=== PATIENT | female | born 1995 | race Caucasian/White ===

== ENCOUNTER 2023-09-14 12:14 | Emergency (ER) | payer SELFPAY ==
[2023-09-14 12:27] VITALS: BP 127/85; PULSE 77; TEMP 36.7; O2SAT 99; BMI 27.2
--- NOTE | 2023-09-14 14:07 | ED.GENADUL1 ---
HPI HPI - General Adult General Chief complaint: Nausea/Vomiting/Diarrhea Stated complaint: dizziness/nausea Time Seen by Provider: 09/14/23 13:50 Source: patient Mode of arrival: walk-in History of Present Illness HPI narrative: Patient is a 28-year-old female with a history of depression who presents to the ER with concerns of full body paresthesias. Patient states she woke up with decreased sensation and numbness to all of her skin. She denies any tick bites. She has had no recent medication changes. She denies any visual changes or headache. She denies any head injury. People that live with her in the home have been without illness or similar symptoms. Patient appears mildly anxious and states she does not have a family doctor to follow-up on this with prompting ER visit. She notes feeling slightly dizzy and admits to working outside yesterday for 4 hours and feels she may be just dehydrated. Patient denies chance of reporting control. Related Data Home Medications ?Medication ?Instructions ?Recorded ?Confirmed escitalopram oxalate 20 mg tablet 20 mg PO DAILY depression 09/14/23 09/14/23 Previous Rx's ?Medication ?Instructions ?Recorded ondansetron HCl 4 mg tablet 4 mg PO Q6H PRN nausea and 09/14/23 vomiting #12 tabs Allergies Allergy/AdvReac Type Severity Reaction Status Date / Time amoxicillin Allergy Severe Verified 09/14/23 12:31 aspirin Allergy Severe Verified 09/14/23 12:31 Opioid HPI Opioid Management Most Recent Opioid Data: No Data to Display Review of Systems ROS Constitutional Denies: fever or chills Eyes Denies: change in vision Ears, nose, mouth, and throat Denies: throat pain, neck pain or throat swelling Cardiovascular Denies: chest pain or palpitations Respiratory Denies: shortness of breath or cough Gastrointestinal Denies: abdominal pain, nausea or vomiting Musculoskeletal Denies: back pain, neck pain or extremity pain Integumentary/Breast Denies: rash, itching or redness Neurological Denies: headache Psychiatric Denies: anxiety or mood swings Exam Narrative Exam Narrative: Vital signs and nurses notes reviewed. The patient is not hypoxic. General: The patient appears well and in no apparent distress. Patient is resting comfortably on cart. Skin: Warm, dry, no pallor noted. The patient has no evidence of rash, petechiae, or purpura noted. Decreased sensation to pain diffuse across her body, patient notes she is pinching herself and can feel a pinch but states it is not as sharp as she would expected to be. Head: Normocephalic, atraumatic, no temporal arterial tenderness Neck: Supple, trachea mid-line, no tenderness, no lymphadenopathy. No meningeal signs. No nuchal rigidity. Eye: Pupils are equal, round and reactive to light, EOMI Ears, Nose, Mouth, and Throat: Oral mucosa is moist, TMs are clear bilaterally, no hemotympanum noted. Cardiovascular: Regular Rate and Rhythm Respiratory: Patient is in no distress, no accessory muscle use, lungs are clear to auscultation, no wheezing, rales or rhonchi Back: non-tender, no CVA tenderness Musculoskeletal: normal ROM, no tenderness, no swelling, normal strength 5/5. Normal pulses to radial 2+ bilaterally and 2+ at DP and PT bilaterally and symmetrically. GI: Normal bowel sounds, no tenderness to palpation, no masses appreciated. No rebound, guarding, or rigidity noted. 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 The patient has normal speech. The patient has normal coordination. . Normal motor and sensory observed. Psychiatric: Cooperative Constitutional Vital Signs, click to edit/add: Last Vital Signs Temp 98.0 F 09/14/23 12:27 Pulse 63 09/14/23 14:31 Resp 16 09/14/23 14:31 BP 109/74 09/14/23 14:31 Pulse Ox 99 09/14/23 14:31 O2 Del Method Room Air 09/14/23 12:27 Course Vital Signs Vital signs: Vital Signs Temperature 98.0 F 09/14/23 12:27 Pulse Rate 77 09/14/23 12:27 Respiratory Rate 14 09/14/23 12:27 Blood Pressure 127/85 09/14/23 12:27 Pulse Oximetry 99 09/14/23 12:27 Oxygen Delivery Method Room Air 09/14/23 12:27 Temperature 98.0 F 09/14/23 12:27 Pulse Rate 63 09/14/23 14:31 Respiratory Rate 16 09/14/23 14:31 Blood Pressure 109/74 09/14/23 14:31 Pulse Oximetry 99 09/14/23 14:31 Oxygen Delivery Method Room Air 09/14/23 12:27 Medical Decision Making MDM Narrative Medical decision making narrative: Patient presents with vague complaints, paresthesias. She admits to overall poor diet but was also exposed to heat yesterday without much fluids. Labs are pending, IV fluid bolus ordered with Zofran for nausea. She denies any pain or discomfort.Denies head injury. Patient has steady brisk gait and drove herself to the emergency room. Patient notes feeling improved after nausea medication IV fluid bolus, still reports feeling of paresthesias. She may require further evaluation with PCP regarding vitamin supplementations or further workup outpatient of Symptoms given global paresthesias symptoms. The patient is to followup with primary care physician in next 2-3 days or to return to the emergency department should any of the signs or symptoms worsen or new symptoms develop. Patient had questions answered. The patient agrees with the following Diagnosis and Treatment plan and the patient will be discharged home. SHARED APC VISIT, PHYSICIAN ATTESTATION: [id number] I performed a substantive part of the MDM during the patient?s E/M visit. I personally evaluated and examined the patient. I personally made or approved the documented management plan and acknowledge its risk of complications. My (EKG/X-Ray/US/CT) interpretation . Management/test interpretation discussed with . Lab Data Lab results narrative: Urinalysis likely contaminated culture pending Labs: Lab Results 09/14/23 09/14/23 Range/Units 12:32 14:15 WBC 6.4 (4.0-11.0) 10^3/uL RBC 4.66 (4.20-5.40) 10^6/uL Hgb 13.7 (12.0-16.0) g/dL Hct 40.6 (36.0-48.0) % MCV 87.1 (81.0-99.0) fL MCH 29.4 (26.7-34.0) pg MCHC 33.7 (29.9-35.2) g/dL RDW 13.2 (11.0-15.0) % Plt Count 208 (150-450) 10^3/uL MPV 11.3 (9.5-13.5) fL Neut % (Auto) 39.6 L (43.0-75.0) % Lymph % (Auto) 48.6 (20.5-60.0) % [place] % (Auto) 7.9 (1.7-12.0) % Eos % (Auto) 3.3 (0.9-7.0) % Baso % (Auto) 0.6 (0.2-2.0) % Neut # (Auto) 2.6 (1.4-6.5) 10^3/uL Lymph # (Auto) 3.1 (1.2-3.8) 10^3/uL [place] # (Auto) 0.5 (0.3-0.8) 10^3/uL Eos # (Auto) 0.2 (0.0-0.7) 10^3/uL Baso # (Auto) 0.0 (0.0-0.1) 10^3/uL Abs Immat Gran (auto) 0.00 (0.00-0.03) 10^3/uL Imm/Tot Granulo (auto) 0.0 (0.0-0.5) % Sodium 140 (136-145) mmol/L Potassium 3.8 (3.5-5.1) mmol/L Chloride 106 (98-107) mmol/L Carbon Dioxide 22.8 (21.0-32.0) mmol/L Anion Gap 15.0 BUN 5.0 L (7.0-18.0) mg/dL Creatinine 0.59 (0.55-1.02) mg/dL Est GFR ( Amer) >60 (>=60) Est GFR (Non-Af Amer) >60 (>=60) BUN/Creatinine Ratio 8.5 Glucose 87 (74-106) mg/dL Calcium 8.7 (8.5-10.1) mg/dL Magnesium 2.1 (1.8-2.4) mg/dL Total Bilirubin 0.6 (0.2-1.0) mg/dL AST 26 (15-37) U/L ALT 23 (14-59) U/L Alkaline Phosphatase 69 (46-116) U/L Total Protein 6.4 (6.4-8.2) g/dL Albumin 3.6 (3.4-5.0) g/dL Globulin 2.8 g/dL Albumin/Globulin Ratio 1.3 TSH & Free T4 Interp 0.773 (0.358-3.740) uIU/mL Urine Color Yellow (YELLOW) Urine Clarity Clear (CLEAR) Urine pH 8.5 (5.0-9.0) Ur Specific [place] 1.020 (1.005-1.025) Urine Protein Trace (NEG/TRACE) mg/dL Urine Glucose (UA) Negative (NEGATIVE) mg/dL Urine Ketones Negative (NEGATIVE) mg/dL Urine Occult Blood Negative (NEGATIVE) Urine Nitrite Negative (NEGATIVE) Urine Bilirubin Negative (NEGATIVE) Urine Urobilinogen 1.0 (0.2-1.0) EU/dL Ur Leukocyte Esterase Trace A (NEGATIVE) Urine RBC None seen (0-2) #/HPF Urine WBC 5-10 A (NONE SEEN) #/HPF Ur Squamous Epith Cells Many A (NONE/RARE) #/LPF Urine Crystals Seen A (None Seen) #/HPF Calcium Oxalate Crystal Rare Amorphous Sediment Few Urine Bacteria Moderate A (NONE SEEN) #/HPF Urine Mucus Moderate A (NONE SEEN) Ur Culture Indicated? Yes Discharge Plan Discharge Stand Alone Forms: Portal Instructions Chief Complaint: Nausea/Vomiting/Diarrhea Clinical Impression: Nausea, Paresthesias Patient Disposition: Home, Self-Care Time of Disposition Decision: 15:30 Condition: Good Prescriptions / Home Meds: New ondansetron HCl 4 mg tablet 4 mg PO Q6H PRN (Reason: nausea and vomiting) Qty: 12 0RF No Action escitalopram oxalate 20 mg tablet 20 mg PO DAILY Print Language: Sammarinese Instructions: Paresthesia (ED) Referrals: YURY LYN [Primary Care Provider] - As soon as possible
[2023-09-14 14:11] LABS: Bilirubin Urine NEGATIVE (NEGATIVE); Blood Urine NEGATIVE (NEGATIVE); Clarity Urine CLEAR (CLEAR); Color Urine YELLOW (YELLOW); Glucose Urine UA NEGATIVE (NEGATIVE); Ketones Urine NEGATIVE (NEGATIVE); Leukocyte Esterase Urine TRACE (NEGATIVE); Nitrite Urine NEGATIVE (NEGATIVE); Protein Urine TRACE mg/dL (NEG/TRACE); pH Urine 8.5 (5.0-9.0)
[2023-09-14 14:12] LABS: Urine Microscopic Indicated YES
[2023-09-14] MEDS: 0.9 % SODIUM CHLORIDE 1,000 ML 999 ML IV (14:14)
[2023-09-14] MEDS: ONDANSETRON 4 MG RAPDIS TABLET SL (14:29)
[2023-09-14 14:30] LABS: Basophils Percent Auto 0.6 % (0.2-2.0); Eosinophils Absolute Auto 0.2 10^3/uL (0.0-0.7); Eosinophils Percent Auto 3.3 % (0.9-7.0); Hematocrit 40.6 % (36.0-48.0); Hemoglobin 13.7 g/dL (12.0-16.0); Lymphocytes Absolute Auto 3.1 10^3/uL (1.2-3.8); Lymphocytes Percent Auto 48.6 % (20.5-60.0); Mean Corpuscular HGB Conc 33.7 g/dL (29.9-35.2); Mean Corpuscular Hemoglobin 29.4 pg (26.7-34.0); Mean Corpuscular Volume 87.1 fL (81.0-99.0); Mean Platelet Volume 11.3 fL (9.5-13.5); Monocytes Absolute Auto 0.5 10^3/uL (0.3-0.8); Monocytes Percent Auto 7.9 % (1.7-12.0); Neutrophils Absolute Auto 2.6 10^3/uL (1.4-6.5); Neutrophils Percent Auto 39.6 % (43.0-75.0); Platelet Count 208 10^3/uL (150-450); Red Blood Count 4.66 10^6/uL (4.20-5.40); Red Cell Distribution Width 13.2 % (11.0-15.0); White Blood Count 6.4 10^3/uL (4.0-11.0)
[2023-09-14 14:31] VITALS: BP 109/74; PULSE 63; O2SAT 99
[2023-09-14 14:45] LABS: Bacteria Urine MODERATE #/HPF (NONE SEEN); RBC Urine NONE SEEN #/HPF (0-2)
[2023-09-14 14:46] LABS: Amorphous Sediment Urine FEW; Calcium Oxalate Crystals Urine RARE; Crystals Seen? Seen #/HPF (None Seen); Mucus Urine MODERATE (NONE SEEN); Squamous Epithelial Cell Urine MANY #/LPF (NONE/RARE)
[2023-09-14 14:47] LABS: Urine Culture Indicated YES
[2023-09-14 15:14] LABS: Alanine Aminotransferase 23 U/L (14-59); Albumin Globulin Ratio 1.3; Albumin Level 3.6 g/dL (3.4-5.0); Alkaline Phosphatase 69 U/L (46-116); Aspartate Amino Transferase 26 U/L (15-37); BUN Creatinine Ratio 8.5; Bilirubin Total 0.6 mg/dL (0.2-1.0); Calcium 8.7 mg/dL (8.5-10.1); Carbon Dioxide 22.8 mmol/L (21.0-32.0); Chloride 106 mmol/L (98-107); Estimated GFR (African America >60 (>=60); Estimated GFR (Non-African Ame >60 (>=60); Globulin 2.8 g/dL; Glucose 87 mg/dL (74-106); Magnesium 2.1 mg/dL (1.8-2.4); Potassium 3.8 mmol/L (3.5-5.1); Sodium 140 mmol/L (136-145); TSH W/ REFLEX FT4 0.773 uIU/mL (0.358-3.740); Total Protein 6.4 g/dL (6.4-8.2)
[2023-09-14 15:37] VITALS: PULSE 52; O2SAT 100
== END 2023-09-14 15:38 | disposition home or self-care (01) ==
PROVIDERS: Personal Emergency Response Attendant; Emergency Provider Emergency Medicine; PCP Nurse Practitioner Family
DX: R20.2 Paresthesia of skin (principal); R11.0 Nausea; F32.A Depression, unspecified
CPT/HCPCS: 36415; 80053; 81001; 83735; 84443; 85025; 87086; 99283; Q0162

== ENCOUNTER 2024-04-18 15:56 | Observation (INO) | payer OTHER, SELFPAY ==
[2024-04-18 16:18] VITALS: BP 139/80; PULSE 111
[2024-04-18 16:35] LABS: Bilirubin Urine NEGATIVE (NEGATIVE); Blood Urine NEGATIVE (NEGATIVE); Clarity Urine CLEAR (CLEAR); Color Urine LT. YELLOW (YELLOW); Glucose Urine UA NEGATIVE (NEGATIVE); Ketones Urine NEGATIVE (NEGATIVE); Leukocyte Esterase Urine TRACE (NEGATIVE); Nitrite Urine NEGATIVE (NEGATIVE); Protein Urine NEGATIVE (NEG/TRACE); Specific Gravity Urine <=1.005 (1.005-1.025); Urine Microscopic Indicated YES; Urobilinogen Urine 0.2 EU/dL (0.2-1.0)
[2024-04-18 16:41] LABS: Bacteria Urine NONE SEEN #/HPF (NONE SEEN); Cast Seen? NONE SEEN #/LPF (NONE SEEN); Crystals Seen? None Seen #/HPF (None Seen); Mucus Urine NONE SEEN (NONE SEEN); RBC Urine NONE SEEN #/HPF (0-2); Squamous Epithelial Cell Urine RARE #/LPF (NONE/RARE); Urine Culture Indicated NO; WBC Urine 0-2 #/HPF (NONE SEEN)
[2024-04-18] MEDS: 0.9 % SODIUM CHLORIDE 1,000 ML 125 ML IV (16:55)
[2024-04-18 17:25] LABS: Amnisure POSITIVE (NEGATIVE); Internal Control Within Normal Limits
[2024-04-18] MEDS: BETAMETHASONE ACE/BETAMETHASONE SOD PHOS 30 MG/5 ML 12 MG IM (17:33)
[2024-04-18] MEDS: TERBUTALINE SULFATE 1 MG/ML VIAL 0.25 MG SUBQ (17:53)
--- NOTE | 2024-04-18 18:45 | PM.OBHP ---
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 Patient states she has had an uncomplicated and last was uncomplicated delivering at 38weeks - 11years ago. History of Present care: good care complications comment: none Medical complications OB: none Labs Narrative: unknown, records not available Review of Systems ROS Status of ROS: 10 or more systems reviewed and unremarkable except as noted in history and below Meds Home Medications and Allergies Home Medications ?Medication ?Instructions ?Recorded ?Confirmed ?Type escitalopram oxalate 20 mg tablet 20 mg PO DAILY depression 09/14/23 09/14/23 History ondansetron HCl 4 mg tablet 4 mg PO Q6H PRN nausea and 09/14/23 Rx vomiting #12 tabs Allergies Allergy/AdvReac Type Severity Reaction Status Date / Time amoxicillin Allergy Severe Verified 09/14/23 12:31 aspirin Allergy Severe Verified 09/14/23 12:31 Exam Constitutional Vital Signs, click to edit/add: Last Vital Signs Pulse 111 H 04/18/24 16:18 BP 139/80 04/18/24 16:18 Documenting provider has reviewed patient's vital signs: yes Common normals: no apparent distress General appearance: cooperative Orientation/consciousness: Yes awake, Yes oriented to person, Yes oriented to place and Yes oriented to time GI Inspection: normal to inspection Other: gravid c/w term External Female Exam: normal appearance of the urethra Other: cervix - 1+/50, -2 Minimal fluid from vagina - leaking started at 1710 today Amniosure - positive from lab today Extremity Common normals: normal to inspection Neuro Common normals: oriented x3 and moves all extremities Psych Psychiatry clinicians, please identify where your Mental Status Exam is documented: Mental Status Exam documented in the separate MSE Results Labs Labs: Urine 04/18/24 Range/Units 16:10 Urine Color Lt. yellow (YELLOW) Urine Clarity Clear (CLEAR) Urine pH 7.0 (5.0-9.0) Ur Specific [place] <=1.005 A (1.005-1.025) Urine Protein Negative (NEG/TRACE) mg/dL Urine Glucose (UA) Negative (NEGATIVE) mg/dL OB - A/P Assessment and Plan (1) labor in third trimester without delivery: Assessment and Plan: rupture of membranes Plan 33wk 4day with labor and spontaneous rupture of membranes during this hospitalization at 1710 confirmed by amniosure No cervical change since admission Contractions are spacing from IV hydration and terbutaline 0.25 x1 dose Bedside US - confirms VTX Discussed patient's clinical presentation with Dr Austin Cosme at [facility] Dr Cosme accepts transfer Patient is allergic to Amox so will give prophylactic antibiotic Clindamycin 900mg IV Patient already given one dose Betamethasone 12mg x1 [facility] will coordinate transfer
[2024-04-18] MEDS: CLINDAMYCIN PHOSPHATE/D5W 900 MG/50 ML PREMIX 100 MG IV (19:17)
[2024-04-18 20:06] VITALS: BP 107/56; PULSE 104; TEMP 36.6
[2024-04-18] MEDS: NIFEdipine 10 MG CAPSULE 20 MG PO (20:08)
[2024-04-18 20:28] LABS: Amphetamine Screen Urine NEGATIVE (NEGATIVE); Barbiturates Screen Urine NEGATIVE (NEGATIVE); Benzodiazepines Screen Urine NEGATIVE (NEGATIVE); Buprenorphine Screen Urine NEGATIVE (NEGATIVE); Cannabinoid Screen Urine NEGATIVE (NEGATIVE); Cocaine Screen Urine NEGATIVE (NEGATIVE); Methadone Screen Urine NEGATIVE (NEGATIVE); Methamphetamines Screen Urine NEGATIVE (NEGATIVE); Opiate Screen Urine NEGATIVE (NEGATIVE); Oxycodone Screen Urine NEGATIVE (NEGATIVE); Phencyclidine Screen Urine NEGATIVE (NEGATIVE); Tricyclic Antidepressant Urine NEGATIVE (NEGATIVE)
--- NOTE | 2024-04-18 21:29 | PM.OBPN ---
OB - PN: Subj Subjective Patient comments: no complaints Exam Constitutional Vital Signs, click to edit/add: Last Vital Signs Temp 98 F 04/18/24 20:06 Pulse 104 H 04/18/24 20:06 Resp 16 04/18/24 20:06 BP 107/56 04/18/24 20:06 Results Labs Labs: Urine 04/18/24 Range/Units 16:10 Urine Color Lt. yellow (YELLOW) Urine Clarity Clear (CLEAR) Urine pH 7.0 (5.0-9.0) Ur Specific [place] <=1.005 A (1.005-1.025) Urine Protein Negative (NEG/TRACE) mg/dL Urine Glucose (UA) Negative (NEGATIVE) mg/dL OB - PN: A/P Assessment and Plan (1) labor in third trimester without delivery: Time Spent with Patient Time: Total time spent is greater than 50% in coordination of care (as documented) at patient's floor/unit and/or counseling patient: Total time spent with greater than 50% in coordination of care (as documented) at patient's floor/unit and/or counseling patient: less than 15 minutes
--- NOTE | 2024-04-18 21:32 | P.OBLDTN_ITS ---
OB - Triage/Final Diagnosis Visit Information Date of evaluation: 04/18/24 Comments/Additional reasons for admission: labor Evaluation Cervical dilation (cm): 1 Cervical effacement (%): 50 Laboratory results: Laboratory Tests 04/18/24 04/18/24 16:10 17:10 Urine Color Lt. yellow Urine Clarity Clear Urine pH 7.0 Ur Specific [place] <=1.005 A Urine Protein Negative Urine Glucose (UA) Negative Urine Ketones Negative Urine Occult Blood Negative Urine Nitrite Negative Urine Bilirubin Negative Urine Urobilinogen 0.2 Ur Leukocyte Esterase Trace A Urine RBC None seen Urine WBC 0-2 A Ur Squamous Epith Cells Rare Urine Crystals None seen Urine Bacteria None seen Urine Casts None seen Urine Mucus None seen Ur Culture Indicated? 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
== END 2024-04-18 21:55 | disposition short-term general hospital (02) ==
PROVIDERS: Admitting Provider Obstetrics & Gynecology Gynecology; PCP Nurse Practitioner Family; Visit Provider Obstetrics & Gynecology Gynecology
DX: O60.03 Preterm labor without delivery, third trimester (principal); O42.913 Preterm premature rupture of membranes, unspecified as to length of time between rupture and onset of labor, third trimester; Z3A.33 33 weeks gestation of pregnancy; Z88.1 Allergy status to other antibiotic agents
CPT/HCPCS: 59025; 80307; 81001; 84112; 96365; 96372; G0378; G0379; J0702; J0736; J3105

== ENCOUNTER 2024-10-03 18:52 | Emergency (ER) | payer OTHER, SELFPAY ==
[2024-10-03 19:00] VITALS: BP 133/87; PULSE 84; TEMP 37.3; BMI 25.7
--- OUTSIDE RECORDS SUMMARY | 2024-10-03 19:04 | XMS_ITS | CCD ---
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 Name Role Phone DR VERÓNICA MANUEL Admitting Unavailable REQUEST, NONE LISTED Primary Care Unavaila vipul MANUEL, DR VERÓNICA Reeves Attending Unavailable TOMER, DR VERÓNICA Reeves Consulting Unavailable KARISHMA, YURY Primary Care Unavailable KARISHMA, YURY Admitting Unavailable KARISHMA, YURY Attending Unavailable KARISHMA, YURY Primary Care Unavailable KARISHMA, YURY Admitting Unavailable KARISHMA, YURY Attending Unavailable KARISHMA, YURY Consulting Unavailable KARISHMA, YURY Primary Care Unavailable JIAN GONZALEZ Consulting Unavailable HAY, DR RAUSCH Admitting Unavailable HAY, DR RAUSCH Attending Unavailable KARISHMA, YURY Primary Care Unavailable ALESIA VANCE Admitting Unavailable PINKY, ALESIA Attending Unavailable ALESIA VANCE Consulting Unavailable MARKER, DR MCCONNELL Admitting Unavailable MARKER, DR MCCONNELL Attending Unavailable MARKER, DR MCCONNELL Consulting Unavailable REQUEST, NONE LISTED Primary Care Unavaila William Bonilla Consulting Unavailable Abi PEREZ, Rosita Primary Care Provider Daksha Darling Unavailable Roista Alex MD Primary Care Provider ROSITA ALEX Primary Care Unavailable MANDI CLEMENTS Attending Unavailable NO FAMILY, PHYSICIAN Primary Care Provider Unava ilable DO Jourdan Sylvester Emergency Provider [facility], Services Primary Care Provider [phone] JOSELYN Chairez Attending Provider DO Kamar Kraus Emergency Provider [phone] NO FAMILY, PHYSICIAN Primary Care Unavailable Jourdan Sylvester Admitting Unavailable Jourdan Sylvester Attending Unavailable [facility], Services Primary Care UnavailSushila Marquis Admitting Unavailable Sushila Chairez Attending Unavailable Kamar Kraus Admitting Unavailable Kamar Kraus Attending Unavailable [facility], Services Primary Care Unavaila ble NO FAMILY, PHYSICIAN Primary Care Provider Bala Sylvester DO Soliman Tej Emergency Provider SHILA CHEEMA S Admitting Unavailable ANETTESHILA ESCALANTE S Attending Unavailable RAULREENA Mojica Primary Care Unavailable Unavailable Primary Care Provider Unavailabl e None, None Primary Care Provider Unavailabl e EMILYILDA MARTÍNEZYN S Admitting Unavailable EMILYBREANN MARTÍNEZHRYN S Attending Unavailable NONE, NONE Primary Care Unavailable NONE, NONE Primary Care Unavailable POOL, ISABELLA E Referring Unavailable NONE, NONE Primary Care Unavailable POOL, ISABELLA E Referring Unavailable POOL, ISABELLA E Referring Unavailable POOL, ISABELLA E Referring Unavailable NONE, NONE Primary Care Unavailable D'CAMMIE TARIK Admitting Unavailable D'CAMMIE TARIK Attending Unavailable NONE, NONE Primary Care Unavailable POOL, ISABELLA E Admitting Unavailable POOL, ISABELLA E Attending Unavailable NONE, NONE Primary Care Unavailable Allergies Allergy Classification Reported Allergen(s) Allergy Type Date of Onset Reaction(s) Facility (5 sources) Amoxicillin; Translations: [AMOXICILLIN] Drug Allergy 3 Hives, nausea/vomittin g [facility] Repository (6 sources) Aspirin; Translations: [ASPIRIN] Drug Allergy 7 Vomiting, nausea/vomittin g [facility] Repository (6 sources) Aluminum aspirin Drug Allergy 8 Hives [facility] [employer] Work Phone: (7 sources) Amoxicillin Drug Allergy 8 nausea/vomittin g [facility] (1 source) Aspirin Drug Allergy nausea/vomittin g [employer] Other (1 source) Amoxicillin Drug Allergy 4 [facility] Repository (1 source) Aspirin Drug Allergy 4 [facility] Repository (4 sources) traZODone Drug Allergy 4 [facility] Medications Current Medications Medication Drug Class(es) Dates Sig (Normalized) Sig (Original) benzocaine 200 mg/ml / menthol 5 mg/ml topical spray (1 source) Standardized Chemical Allergen Start: 05-16-2024 Topical, PRN, Pain, Starting on Sun05/16/24 at 1925, Apply to perineal area. Patient is capable and may self administer at bedside., 1 ml carboprost 0.25 mg/ml injection (1 source) Prostaglandin Analog Start: 05-16-2024 drospirenone 3 mg / ethinyl estradiol 0.02 mg oral tablet (1 source) Progestin, Estrogen Start: 07-28-2021 End: 10-26-2021 take 1 tablet by mouth once daily, then take 3 tablets by mouth once drospirenone-ethiny l estradiol (CHASTITY) 3-0.02 MG per tablet Indications: Oral contraception initial prescription Take 1 tablet by mouth daily 28 tablet 2 07/28/2021 10/26/2021 Active escitalopram 5 mg oral tablet (14 sources) Serotonin Reuptake Inhibitor Start: 05-16-2024 Start: 05-06-2023 End: 05-30-2023 take 20 mg by mouth once daily Escitalopram Oxalate Di scontinued 20 MG PO Daily May 06, 2023 1:00am May 30, 2023 4:45pm Start: 11-13-2022 take 1 tablet by demetra th once daily escitalopram (LEXAPRO) 20 MG tablet Indications: Current moderate episode of major depressive disorder, unspecified whether recurrent (HCC) Take 1 tablet by mouth daily 90 tablet 4 11/13/2022 Active Start: 07-02-2019 End: 05-06-2023 take 10 mg by mouth once daily Escitalopram Oxalate Di scontinued 10 MG PO Daily November 19, 2019 11:00pm May 06, 2023 12:17am etonogestrel 68 mg drug implant (2 sources) Progestin Start: 11-17-2021 etonogestrel ( NEXPLANON) implant 68 mg etonogestrel (NE XPLANON) 68 MG implant 68 mg by Subdermal route once 0 Active lanolin 1000 mg/ml topical c ream (1 source) Start: 05-16-2024 1 ml methylergonovine maleat e 0.2 mg/ml injection (2 sources) Ergot Derivative Start: 05-16-2024 End: 05-16-2024 miSOPROStol 0.1 mg oral tabl et (2 sources) Prostaglandin E1 Analog Start: 05-16-2024 Start: 05-16-2024 molindone hydrochloride 5 mg oral tablet (2 sources) Start: 05-30-2023 take 5 mg by mouth four times daily Molindone Active 5 MG PO Four times daily May 30, 2023 1:00am mupirocin 0.02 mg/mg topical ointment (1 source) RNA Synthetase Inhibitor Antibacterial Start: 06-02-2021 Mupirocin 2 % 1 application to affected area Externally 2 times a day for 7 days May, Active ondansetron (ZOFRAN-ODT) disintegrating tablet 4 mg (1 source) Start: 05-16-2024 ondansetron (ZOFRAN-ODT) disintegrating tablet 4 mg Vit-Fe Fumarate-FA ( 19 PO) (4 sources) Vit-Fe Fumarate-FA ( 19 PO) Take by mouth Active Vit-Fe Fumarate-FA ( 19 PO) Take by mouth 0 Active 5 ml sodium chloride 9 mg/ml injection (1 source) Start: 05-16-2024 terconazole 4 mg/ml vaginal cream (1 source) Azole Antifungal Start: 05-13-2024 End: 05-18-2024 terconazole (TERAZOL 7) 0.4 % vaginal cream Place one applicator full vaginally nightly for 7 nights 1 each 05/13/2024 05/18/2024 Discontinued (Stop Taking at Discharge) witch lisha 500 mg/ml medicated pad (1 source) Start: 05-16-2024 Topical, PRN, Hemorrhoids, Starting on Sun05/16/24 at 1925, Apply to perineal area. Patient is capable and may self administer at bedside., Completed/Discontinued Medications Medication Drug Class(es) Dates Sig (Normalized) Sig (Original) acetaminophen 500 mg oral tablet (6 sources) Start: 05-16-2024 1,000 mg, Oral, EVERY 8 HOURS PRN, Starting on Sun05/16/24 at 1925, Until Discontinued, Pain Mild (1-3), Allowed for higher pain score per patient request, Maximum dose of acetaminophen is 4000mg from all sources in 24 hours. Alternate ibuprofen and acetaminophen every 4 hours., Start: 01-25-2022 End: 01-25-2022 acetaminophen (TYLENOL) tabl et 650 mg End: 05-18-2024 take 2 tablets by mouth every six hours as needed for pain acetaminophen (TYLENOL) 325 MG tablet Take 2 tablets by mouth every 6 hours as needed for Pain 05/18/2024 Discontinued (Stop Taking at Discharge) calcium chloride 0.0014 meq/ml / potassium chloride 0.004 meq/ml / sodium chloride 0.103 meq/ml / sodium lactate 0.028 meq/ml injectable solution (1 source) Start: 05-16-2024 End: 05-16-2024 IntraVENous, at 75 mL/hr, CONTINUOUS, Starting on Sun05/16/24 at 1200, After epidural bolus given, infuse LR at 75mL/hr, Labor and Delivery cefdinir 300 mg oral capsule (2 sources) Cephalosporin Antibacterial Start: 05-30-2023 End: 06-21-2023 take 300 mg by mouth every twelve hours Cefdinir Discontinued 300 MG PO Every 12 hours 20 May 30, 2023 1:00am June 21, 2023 7:38pm docusate sodium 100 mg oral capsule (1 source) Start: 05-16-2024 take 100 mg by mouth twice daily as needed 100 mg, Oral, 2 TIMES DAILY PRN, Starting on Sun05/16/24 at 1925, Until Discontinued, Constipation, Do not crush or break., doxycycline hyclate 100 mg oral capsule (4 sources) Tetracycline-class Drug Start: 05-06-2023 End: 05-30-2023 take 100 mg by mouth twice daily Doxycycline Hyclate Discontinued 100 MG PO Twice daily 14 May 06, 2023 1:00am May 30, 2023 4:45pm Start: 06-02-2021 [facility] capsule [facility] hours Doxycycline Monohydrate 100 MG 1 capsule Orally every 12 hrs for 7 days May, Active ibuprofen 800 mg oral tablet (4 sources) Nonsteroidal Anti-inflammatory Drug Start: 05-16-2024 800 mg, Oral, JESSICA RY 8 HOURS SCHEDULED (3 times per day), First dose on Sun05/16/24 at 2200, Until Discontinued, Once tolerating PO, discontinue Ketorolac and begin ibuprofen 8 hours after the final dose of Ketotolac. Alternate ibuprofen and acetaminophen every 4 hours., Start: 03-02-2023 [facility] as needed for pain ibuprofen (IBU) 600 MG tablet Take 1 tablet by mouth every 6 hours as needed for Pain 25 tablet 0 03/02/2023 Active Start: 01-25-2022 take 1 tablet by demetra th every eight hours as needed for pain ibuprofen (IBU) 800 MG tablet Take 1 tablet by mouth every 8 hours as needed for Pain 20 tablet 0 01/25/2022 Active Start: 08-29-2021 End: 01-25-2022 take 1 tablet by mouth four times daily as needed for pain ibuprofen (ADVIL;MOTRIN) 600 MG tablet Indications: Muscle strain of left upper back, initial encounter Take 1 tablet by mouth 4 times daily as needed for Pain 40 tablet 0 08/29/2021 01/25/2022 Discontinued (Therapy completed) 1 ml ketorolac tromethamine 30 mg/ml cartridge (2 sources) Nonsteroidal Anti-inflammatory Drug, Cyclooxygenase Inhibitor Start: 01-25-2022 End: 01-25-2022 ketorolac (TORADOL) injection 30 mg Start: 08-23-2021 End: 08-23-2021 ketorolac (TORADOL) injectio n 30 mg naltrexone hydrochloride 50 mg oral tablet (3 sources) Opioid Antagonist Start: 11-20-2019 End: 05-06-2023 take 50 mg by mouth once daily Naltrexone Discontinued 50 MG PO Daily November 20, 2019 12:00am May 06, 2023 1:17am nicotine 2 mg chewing gum (6 sources) Cholinergic Nicotinic Agonist Start: 07-02-2019 End: 05-06-2023 Nicotine (Polacrilex) Discontinued 2 MG BUCCAL Q2H November 19, 2019 11:00pm May 06, 2023 12:17am ondansetron 4 mg disintegrating oral tablet (2 sources) Serotonin-3 Receptor Antagonist Start: 01-25-2022 End: 01-25-2022 ondansetron (ZOFRAN-ODT) disintegrating tablet 4 mg oxytocin (PITOCIN) 30 units in 500 mL infusion (2 sources) Start: 05-16-2024 End: 05-16-2024 1-24 maryellen-units/min (1-24 mL/hr), IntraVENous, CONTINUOUS, Starting on Sun05/16/24 at 1200, Until Sun05/16/24 at 1925, Begin infusion at 1 maryellen-unit/min (1 maryellen-unit per min = 1 mL per hour) . Then increase by 2 maryellen-units/min as needed, no faster than every 30 minutes, until labor is achieved. Labor is defined as contractions every 2-3 minutes with cervical changes or Sullivan units (MVU) greater than 200 in a 10-minute window. Maximum infusion rate: 24 maryellen-unit/min. Contact provider if maximum rate does not achieve desired response. Provider may order alternative titration goal or other clinically appropriate goal of titration rate (s). Smaller titration increments of 1 maryellen-units/min, not faster than every 30 minutes, may be used when approaching therapeutic goal after discussion with provider. If unable to increase call provider and let them know. At time of needed increase, Labor and Delivery Start: 05-16-2024 166 maryellen-unit s/min (166 mL/hr), IntraVENous, PRN, 1 dose, Starting on Sun05/16/24 at 1127, Until Discontinued, Bleeding, For Post Use Only. Give after delivery of placenta. Following Bolus from bag administration, reduce the rate to 166 mL/hr and administer remaining bag prazosin 1 mg oral capsule (6 sources) alpha-Adrenergic Vidal Start: 07-02-2019 End: 05-06-2023 take 1 mg by mouth once daily at bedtime Prazosin Discontinued 1 MG PO Daily at bedtime November 19, 2019 11:00pm May 06, 2023 12:17am QUEtiapine 25 mg oral tablet (9 sources) Atypical Antipsychotic Start: 11-20-2019 End: 05-06-2023 take 25 mg by mouth once daily Quetiapine Discontinued 25 MG PO Daily November 20, 2019 12:00am May 06, 2023 1:17am Start: 07-02-2019 End: 05-06-2023 take 50 mg by mouth once daily at bedtime Quetiapine Discontinued 50 MG PO Daily at bedtime November 19, 2019 11:00pm May 06, 2023 12:17am Problems Active Problems Problem Classification Problem Date Documented Date Episodic/Chronic Abdominal pain (7 sources) Lower abdominal pain; Translations: [Lower abdominal pain, unspecified] Onset: 04-20-2024 Episodic Allergic reactions (2 sources) Allergy to amoxicillin; Translations: [Allergy status to penicillin] Onset: 05-07-2024 05-07-2024 Episodic Anxiety disorders (3 sources) Posttraumatic stress disorder; Translations: [Post-traumatic stress disorder, unspecified] 03-07-2023 Chronic Early or threatened labor (4 sources) Finding of uterine contractions; Translations: [False labor, unspecified] Onset: 05-16-2024 05-16-2024 Episodic Fluid and electrolyte disorders (3 sources) Hypokalemia; Translations: [Hypokalemia] 03-07-2023 Episodic Genitourinary symptoms and ill-defined conditions (1 source) Personal history of urinary (tract) infections; Translations: [PERS HX URINARY TRACT INFECTIONS] Onset: 01-18-2021 Episodic Headache; including migraine (1 source) Migraine, unspecified, not intractable, without status migrainosus; Translations: [MIGRAINE UNS NOT INTRACT W/O SM] Onset: 10-14-2020 Chronic Headache; including migraine (3 sources) Headache; including migraine; Translations: [HEADACHE UNSPECIFIED] Onset: 10-12-2020 Immunizations and screening for infectious disease (3 sources) Patient encounter status; Translations: [Encounter for screening for infections with a predominantly sexual mode of transmission] Onset: 11-21-2023 05-07-2024 Episodic Menstrual disorders (6 sources) Amenorrhea; Translations: [Amenorrhea, unspecified] Onset: 08-29-2022 Resolved: 05-16-2024 10-24-2023 Chronic Mood disorders (7 sources) Recurrent major depression; Translations: [Major depressive disorder, recurrent, unspecified] Onset: 08-29-2022 03-07-2023 Chronic Other complications of (2 sources) distress affecting management of mother; Translations: [Maternal care for abnormalities of the heart rate or rhythm, unspecified trimester, not applicable or unspecified] Onset: 05-16-2024 05-16-2024 Episodic Other complications of (2 sources) Maternal care for abnormalities of the heart rate or rhythm, unspecified trimester, not applicable or unspecified; Translations: [Maternal care for abnormalities of the heart rate or rhythm, unspecified trimester, not applicable or unspecified] Onset: 05-16-2024 Episodic Other ear and sense organ disorders (1 source) Other infective otitis externa, left ear; Translations: [Other infective otitis externa, left ear] Onset: 03-02-2023 Episodic Other female genital disorders (1 source) Pruritus of vagina; Translations: [Other specified noninflammatory disorders of vagina] 05-07-2024 Episodic Other female genital disorders (1 source) Other specified noninflammatory disorders of vagina; Translations: [Other specified noninflammatory disorders of vagina] Onset: 05-07-2024 Episodic Other non-traumatic joint disorders (1 source) Pain in left shoulder; Translations: [Pain in left shoulder] Onset: 06-19-2023 Episodic Other upper respiratory infections (3 sources) Sinusitis; Translations: [Chronic sinusitis, unspecified] 05-14-2023 Chronic Other upper respiratory infections (6 sources) Acute upper respiratory infection, unspecified; Translations: [Acute bacterial pharyngitis] Onset: 01-18-2021 05-30-2023 Episodic Personality disorders (4 sources) Borderline personality disorder; Translations: [Borderline personality disorder] Onset: 08-29-2022 08-29-2022 Chronic Residual codes; unclassified (3 sources) History of premature rupture of membranes; Translations: [Personal history of other complications of , childbirth and the puerperium] Onset: 04-19-2024 04-19-2024 Episodic Residual codes; unclassified (1 source) Gestation period, 36 weeks; Translations: [36 weeks gestation of ] 05-07-2024 Episodic Residual codes; unclassified (1 source) 33 weeks gestation of ; Translations: [33 weeks gestation of ] Onset: 04-18-2024 Episodic Residual codes; unclassified (2 sources) Gestation period, 37 weeks; Translations: [37 weeks gestation of ] Onset: 05-16-2024 05-16-2024 Episodic Residual codes; unclassified (1 source) 36 weeks gestation of ; Translations: [36 weeks gestation of ] Onset: 05-07-2024 Episodic Schizophrenia and other psychotic disorders (3 sources) Schizoaffective disorder; Translations: [Schizoaffective disorder, unspecified] 03-07-2023 Chronic Substance-related disorders (8 sources) Nicotine dependence, cigarettes, uncomplicated; Translations: [Methamphetamine abuse] Onset: 01-18-2021 03-07-2023 Chronic Unclassified (2 sources) COUGH, UNSPECIFIED; Translations: [COUGH, UNSPECIFIED] Onset: 01-18-2021 Unclassified (1 source) CONTACT W/AND (SUSP) EXPOS COVID-19; Translations: [CONTACT W/AND (SUSP) EXPOS COVID-19] Onset: 01-18-2021 Viral infection (1 source) COVID-19; Translations: [Other specified viral infection] Episodic Past or Other Problems Problem Classification Problem Date Documented Date Episodic/Chronic Cancer of cervix (7 sources) Low grade squamous intraepithelial lesion on cervical Papanicolaou smear; Translations: [Low grade squamous intraepithelial lesion on cytologic smear of cervix (LGSIL)] Onset: 08-18-2021 08-18-2021 Episodic Conditions associated with dizziness or vertigo (8 sources) Dizziness and giddiness; Translations: [Dizziness] Onset: 07-09-2020 Resolved: 11-13-2022 Episodic Contraceptive and procreative management (4 sources) Subcutaneous contraceptive implant present; Translations: [Presence of (intrauterine) contraceptive device] Onset: 08-29-2022 Resolved: 11-13-2022 11-13-2022 Episodic E Codes: Fall (1 source) Fall (on) (from) other stairs and steps, initial encounter; Translations: [FALL ON FROM OTH STAIRS STEPS INIT] Onset: 04-09-2020 Episodic Fever of unknown origin (1 source) Fever, unspecified; Translations: [FEVER UNSPECIFIED] Onset: 07-12-2020 Episodic Other connective tissue disease (3 sources) Pain in right foot; Translations: [PAIN IN RIGHT FOOT] Onset: 04-07-2020 Episodic Other connective tissue disease (4 sources) Disorder of shoulder; Translations: [Other muscle spasm] Onset: 11-13-2022 Resolved: 05-16-2024 11-13-2022 Episodic Other and delivery including normal (6 sources) Normal ; Translations: [Encounter for supervision of other normal , first trimester] Onset: 10-24-2023 10-24-2023 Episodic Other screening for suspected conditions (not mental disorders or infectious disease) (1 source) Encounter for screening for malignant neoplasm of cervix; Translations: [Encounter for screening for malignant neoplasm of cervix] Onset: 11-21-2023 Episodic Residual codes; unclassified (4 sources) Gestation period, 33 weeks; Translations: [33 weeks gestation of ] Onset: 04-18-2024 Resolved: 05-16-2024 04-19-2024 Episodic Residual codes; unclassified (1 source) 12 weeks gestation of ; Translations: [12 weeks gestation of ] Onset: 11-21-2023 Episodic Skin and subcutaneous tissue infections (1 source) Cellulitis of umbilicus Onset: 06-02-2021 Resolved: 06-02-2021 Episodic Sprains and strains (1 source) Unspecified sprain of right foot, initial encounter; Translations: [UNSPECIFIED SPRAIN RT FOOT INITIAL] Onset: 04-09-2020 Episodic Syncope (4 sources) Syncope and collapse; Translations: [SYNCOPE AND COLLAPSE] Onset: 07-29-2020 Episodic Unclassified (1 source) COUGH, UNSPECIFIED; Translations: [COUGH, UNSPECIFIED] Onset: 01-17-2021 Urinary tract infections (5 sources) Urinary tract infection, site not specified; Translations: [Recurrent urinary tract infection] Onset: 07-12-2020 Resolved: 11-13-2022 11-13-2022 Episodic Results Test Name Value Interpretation Reference Range Facility CBC auto differentialon 04-27 Basophils (Bld) [#/Vol] 0.03 10*3/uL [facility] Basophils/100 WBC (Bld) 0 % 0 - 2 % [facility] Eosinophils (Bld) [#/Vol] 0.07 10*3/uL [facility] Eosinophils/100 WBC (Bld) 1 % 1 - 4 % [facility] Erythrocyte distribution width (RBC) [Ratio] 14.3 % 11.8 - 14.4 % [facility] Hematocrit (Bld) [Volume fraction] 38.6 % 36.3 - 47.1 % [facility] Hemoglobin (Bld) [Mass/Vol] 12.6 g/dL 11.9 - 15.1 g/dL [facility] Immature granulocytes (Bld) [#/Vol] 0.04 10*3/uL [facility] Immature granulocytes/100 WBC (Bld) 1 % High 0 [facility] Interpretation and review of laboratory results Abnormal [facility] Lymphocytes/100 WBC (Bld) 33 % 24 - 43 % [facility] Lymphocytes/100 WBC (Bld) 2.90 % [facility] MCH (RBC) [Entitic mass] 28.6 pg 25.2 - 33.5 pg [facility] MCHC (RBC) [Mass/Vol] 32.6 g/dL 28.4 - 34.8 g/dL [facility] MCV (RBC) [Entitic vol] 87.7 fL 82.6 - 102.9 fL [facility] Monocytes/100 WBC (Bld) 5 % 3 - 12 % [facility] Monocytes/100 WBC (Bld) 0.46 % [facility] Neutrophils/100 WBC (Bld) 60 % 36 - 65 % [facility] Nucleated RBC/100 WBC (Bld) [Ratio] 0.0 % 0.0 per 100 WBC [facility] Platelet mean volume (Bld) [Entitic vol] 11.8 fL 8.1 - 13.5 fL [facility] Platelets (Bld) [#/Vol] 184 10*3/uL [facility] RBC (Bld) [#/Vol] 4.40 10*6/uL 3.95 - 5.1 1 m/uL [facility] Segmented neutrophils/100 WBC (Bld) 5.35 % [facility] WBC other (Bld) [#/Vol] 8.9 [facility] CBC with Diffon 05-16-2024 Abs. Basophil 0.03 k/uL Normal 0.00-0.20 [facility] Comment on above: Performed By: #### V AGP #### [facility] [employer] [address] [place] [address] Aerophysicist: Jeff Morrell MD [facility] [address] [place] [address] Aerophysicist: Dmitri Galloway MD Abs.Imm.Granulocyte 0.04 k/uL Normal 0.00-0.30 [facility] Comment on above: Performed By: #### V AGP #### [id number] [place] [address] Aerophysicist: Jeff Morrell MD [address] [place] [id number] Aerophysicist: Dmitri Galloway MD Abs.Neutrophil (Seg) 5.35 k/uL Normal 1.50-8.10 [facility] Comment on above: Performed By: #### V AGP #### [address] [address] Aerophysicist: Jeff Morrell MD [address] [place] [id number] Aerophysicist: Dmitri Galloway MD Basophils/100 WBC (Bld) 0 % Normal 0-2 [facility] Comment on above: Performed By: #### V AGP #### [address] [address] Aerophysicist: Jeff Morrell MD [address] [place] [id number] Aerophysicist: Dmitri Galloway MD Eosinophils (Bld) [#/Vol] 0.07 10*3/uL Normal 0.00-0.44 [facility] Comment on above: Performed By: #### V AGP #### [address] [address] Aerophysicist: Jeff Morrell MD [address] [place] [id number] Aerophysicist: Dmitri Galloway MD Eosinophils/100 WBC (Bld) 1 % Normal 1-4 [facility] Comment on above: Performed By: #### V AGP #### [address] [address] Aerophysicist: Jeff Morrell MD [address] [place] [id number] Aerophysicist: Dmitri Galloway MD Erythrocyte distribution width (RBC) [Ratio] 14.3 % Normal 11.8-14.4 [facility] Comment on above: Performed By: #### V AGP #### [address] [address] Aerophysicist: Jeff Morrell MD [facility] [address] [place] [address] [place], [place] [id number] Aerophysicist: Dmitri Galloway MD Hematocrit (Bld) [Volume fraction] 38.6 % Normal 36.3-47.1 [facility] Comment on above: Performed By: #### V AGP #### [address] [address] Aerophysicist: Jeff Morrell MD [address] [place] [phone] Aerophysicist: Dmitri Galloway MD Hemoglobin (Bld) [Mass/Vol] 12.6 g/dL Normal 11.9-15.1 [facility] Comment on above: Performed By: #### V AGP #### [address] [address] Aerophysicist: Jeff Morrell MD [address] [place] [id number] Aerophysicist: Dmitri Galloway MD Immature granulocytes/100 WBC (Bld) 1 % High 0 [facility] Comment on above: Performed By: #### V AGP #### [address] [address] Aerophysicist: Jeff Morrell MD [facility] [address] [place] [address] Dr. [place] [phone] Aerophysicist: Dmitri Galloway MD Lymphocytes (Bld) [#/Vol] 2.90 10*3/uL Normal 1.10-3.70 [facility] Comment on above: Performed By: #### V AGP #### [address] [address] Aerophysicist: Jeff Morrell MD [facility] [address] [place] [address] Dr. [place] [id number] Aerophysicist: Dmitri Galloway MD Lymphocytes/100 WBC (Bld) 33 % Normal 24-43 [facility] Comment on above: Performed By: #### V AGP #### [address] [address] Aerophysicist: Jeff Morrell MD [facility] [address] [place] [address] [place] [phone] Aerophysicist: Dmitri Galloway MD MCH (RBC) [Entitic mass] 28.6 pg Normal 25.2-33.5 [facility] Comment on above: Performed By: #### V AGP #### [address] [address] Aerophysicist: Jeff Morrell MD [address] [place] [phone] Aerophysicist: Dmitri Galloway MD MCHC (RBC) [Mass/Vol] 32.6 g/dL Normal 28.4-34.8 [facility] Comment on above: Performed By: #### V AGP #### [address] [address] Aerophysicist: Jeff Morrell MD [address] [place] [phone] Aerophysicist: Dmitri Galloway MD MCV (RBC) [Entitic vol] 87.7 fL Normal 82.6-102.9 [facility] Comment on above: Performed By: #### V AGP #### [address] [address] Aerophysicist: Jeff Morrell MD [address] [place] [phone] Aerophysicist: Dmitri Galloway MD Monocytes (Bld) [#/Vol] 0.46 10*3/uL Normal 0.10-1.20 [facility] Comment on above: Performed By: #### V AGP #### [place] [address] [place] [address] Aerophysicist: Jeff Morrell MD [facility] [address] [place] [address] Dr. [place], [place] [phone] Aerophysicist: Dmitri Galloway MD Monocytes/100 WBC (Bld) 5 % Normal 3-12 [facility] Comment on above: Performed By: #### V AGP #### [address] [address] Aerophysicist: Jeff Morrell MD [address] [place] [phone] Aerophysicist: Dmitri Galloway MD Neutrophil (Seg) 60 % Normal 36-65 [facility] Comment on above: Performed By: #### V AGP #### [address] [address] Aerophysicist: Jeff Morrell MD [facility] [address] [place] [address] Dr. [place] [phone] Aerophysicist: Dmitri Galloway MD NRBC Automated 0.0 per 100 WBC Normal 0.0 [facility] Comment on above: Performed By: #### V AGP #### [address] [address] Aerophysicist: Jeff Morrell MD [facility] [address] [place] [address] Dr. [place], [id number] Aerophysicist: Dmitri Galloway MD Platelet mean volume (Bld) [Entitic vol] 11.8 fL Normal 8.1-13.5 [facility] Comment on above: Performed By: #### V AGP #### [address] [address] Aerophysicist: Jeff Morrell MD [facility] [address] [place] [address] [place], [place] [phone] Aerophysicist: Dmitri Galloway MD Platelets (Bld) [#/Vol] 184 10*3/uL Normal 138-453 [facility] Comment on above: Performed By: #### V AGP #### [place] [address] [place] [address] Aerophysicist: Jeff Morrell MD [facility] [address] [place] [address] Dr. [place] [phone] Aerophysicist: Dmitri Galloway MD RBC (Bld) [#/Vol] 4.40 10*6/uL Normal 3.95-5.11 [facility] Comment on above: Performed By: #### V AGP #### [address] [address] Aerophysicist: Jeff Morrell MD [facility] [address] [place] [address] Dr. [place] [phone] Aerophysicist: Dmitri Galloway MD WBC (Bld) [#/Vol] 8.9 10*3/uL Normal 3.5-11.3 [facility] Comment on above: Performed By: #### V AGP #### [address] [address] Aerophysicist: Jeff Morrell MD [facility] [address] [place] [address] Dr. [place] [phone] Aerophysicist: Dmitri Galloway MD Comp Metabolic Profon 2024 Albumin [Mass/Vol] 3.5 g/dL Normal 3.5-5.2 [facility] Comment on above: Performed By: #### V AGP #### [address] [address] Aerophysicist: Jeff Morrell MD [facility] [address] [place] [address] [place] [address] Aerophysicist: Dmitri Galloway MD Albumin/Glob Ratio 1.4 Normal 1.0-2.5 [facility] Comment on above: Performed By: #### V AGP #### [facility] [address] [place] [address] Aerophysicist: Jeff Morrell MD [facility] [address] [place] [address] Dr. [place], [place] [phone] Aerophysicist: Dmitri Galloway MD Alkaline Phos 133 U/L High 35-104 [facility] Comment on above: Performed By: #### V AGP #### [facility] [address] [place] [address] Aerophysicist: Jeff Morrell MD [facility] [address] [place] [address] [place] [address] Aerophysicist: Dmitri Galloway MD ALT [Catalytic activity/Vol] 9 U/L Low 10-35 [facility] Comment on above: Performed By: #### V AGP #### [address] [address] Aerophysicist: Jeff Morrell MD [facility] [address] [place] [address] [place] [address] Aerophysicist: Dmitri Galloway MD Anion gap [Moles/Vol] 12 mmol/L Normal 9-16 [facility] Comment on above: Performed By: #### V AGP #### [address] [address] Aerophysicist: Jeff Morrell MD [facility] [address] [place] [address] Dr. [place], [place] [phone] Aerophysicist: Dmitri aGlloway MD AST [Catalytic activity/Vol] 15 U/L Normal 10-35 [facility] Comment on above: Performed By: #### V AGP #### [facility] [address] [place] [address] Aerophysicist: Jeff Morrell MD [facility] [address] [place] [address] [place] [address] Aerophysicist: Dmitri Galloway MD Bilirubin [Mass/Vol] mg/dL Normal 0.00-1.20 [facility] Comment on above: Performed By: #### V AGP #### [facility] [address] [place] [address] Aerophysicist: Jeff Morrell MD [facility] [address] [place] [address] Dr. [place], [place] [phone] Aerophysicist: Dmitri Galloway MD BUN/CRE Ratio 10 Normal 9-20 [facility] Comment on above: Performed By: #### V AGP #### [address] [address] Aerophysicist: Jeff Morrell MD [facility] [address] [place] [address] Dr. [place], [place] [phone] Aerophysicist: Dmitri Galloway MD Calcium [Mass/Vol] 8.6 mg/dL Normal 8.6-10.4 [facility] Comment on above: Performed By: #### V AGP #### [facility] [address] [place] [address] Aerophysicist: Jeff Morrell MD [facility] [address] [place] [address] Dr. [place], [place] [phone] Aerophysicist: Dmitri Galloway MD Chloride [Moles/Vol] 105 mmol/L Normal 98-107 [facility] Comment on above: Performed By: #### V AGP #### [facility] [address] [place] [address] Aerophysicist: Jeff Morrell MD [facility] [address] [place] [address] [place] [address] Aerophysicist: Dmitri Galloway MD CO2 [Moles/Vol] 20 mmol/L Normal 20-31 [facility] Comment on above: Performed By: #### V AGP #### [facility] [address] [place] [address] Aerophysicist: Jeff Morrell MD [facility] [address] [place] [address] Dr[place], [place] [phone] Aerophysicist: Dmitri Galloway MD Creatinine [Mass/Vol] 0.4 mg/dL Low 0.50-0.90 [facility] Comment on above: Performed By: #### V AGP #### [facility] [address] [place] [address] Aerophysicist: Jeff Morrell MD [address] [place], [place] [phone] Aerophysicist: Dmitri Galloway MD GFR/1.73 sq M.predicted among non-blacks MDRD (S/P/Bld) [Vol rate/Area] mL/min/{1.73_m2} Normal >60 [facility] Comment on above: Result Comment: These results are not intended for use in patients <18 years of age. eGFR results are calculated without a race factor using the 2020 CKD-EPI equation. Careful clinical correlation is recommended, particularly when comparing to results calculated using previous equations. The CKD-EPI equation is less accurate in patients with extremes of muscle mass, extra-renal metabolism of creatine, excessive creatine ingestion, or following therapy that affects renal tubular secretion. Performed By: #### V AGP #### [facility] [address] [place] [address] Aerophysicist: Jeff Morrell MD [address] [place] [address] Aerophysicist: Dmitri Galloway MD Glucose [Mass/Vol] 88 mg/dL Normal 74-99 [facility] Comment on above: Performed By: #### V AGP #### [facility] [address] [place] [address] Aerophysicist: Jeff Morrell MD [address] [place], [place] [phone] Aerophysicist: Dmitri Galloway MD Potassium [Moles/Vol] 3.8 mmol/L Normal 3.7-5.3 [facility] Comment on above: Performed By: #### V AGP #### [facility] [address] [place] [address] Aerophysicist: Jeff Morrell MD [facility] [address] [place] [address] [place] [address] Aerophysicist: Dmitri Galloway MD Protein [Mass/Vol] 6.0 g/dL Low 6.6-8.7 [facility] Comment on above: Performed By: #### V AGP #### [place] [address] [place] [address] Aerophysicist: eJff Morrell MD [facility] [address] [place] [address] [place] [address] Aerophysicist: Dmitri Galloway MD Sodium [Moles/Vol] 137 mmol/L Normal 136-145 [facility] Comment on above: Performed By: #### V AGP #### [address] [address] Aerophysicist: Jeff Morrell MD [facility] [address] [place] [address] [place] [address] Aerophysicist: Dmitri Galloway MD Urea nitrogen [Mass/Vol] 4 mg/dL Low 6-20 [facility] Comment on above: Performed By: #### V AGP #### [address] [address] Aerophysicist: Jeff Morrell MD [facility] [address] [place] [address] [place] [address] Aerophysicist: Dmitri Galloway MD Comprehensive Metabolic [facility] 05-16-2024 Albumin [Mass/Vol] 3.5 g/dL 3.5 - 5.2 g/dL [facility] Albumin/Globulin [Mass ratio] 1.4 {ratio} 1.0 - 2.5 [facility] ALP [Catalytic activity/Vol] 133 U/L High 35 - 104 U/L [facility] ALT [Catalytic activity/Vol] 9 U/L Low 10 - 35 U/L [facility] Anion gap [Moles/Vol] 12 mmol/L 9 - 16 mmol/L [facility] AST [Catalytic activity/Vol] 15 U/L 10 - 35 U/L [facility] Bilirubin [Mass/Vol] mg/dL 0.00 - 1.20 mg/dL [facility] Calcium [Mass/Vol] 8.6 mg/dL 8.6 - 10. 4 mg/dL [facility] Chloride [Moles/Vol] 105 mmol/L 98 - 10 7 mmol/L [facility] CO2 [Moles/Vol] 20 mmol/L 20 - 31 mmol/L [facility] Creatinine [Mass/Vol] 0.4 mg/dL Low 0.50 - 0.90 mg/dL [facility] EstBoris Rate - PINF [facility] Comment on above: These results are not intended for use in patients <18 years of age. eGFR results are calculated without a race factor using the 2020 CKD-EPI equation. Careful clinical correlation is recommended, particularly when comparing to results calculated using previous equations. The CKD-EPI equation is less accurate in patients with extremes of muscle mass, extra-renal metabolism of creatine, excessive creatine ingestion, or following therapy that affects renal tubular secretion. Glucose [Mass/Vol] 88 mg/dL 74 - 99 mg/dL [facility] Interpretation and review of laboratory results Abnormal [facility] Potassium [Moles/Vol] 3.8 mmol/L 3.7 - 5.3 mmol/L [facility] Protein [Mass/Vol] 6.0 g/dL Low 6.6 - 8.7 g/dL [facility] Sodium [Moles/Vol] 137 mmol/L 136 - 145 mmol/L [facility] Urea nitrogen [Mass/Vol] 4 mg/dL Low 6 - 20 mg/dL [facility] Urea nitrogen/Creatinine [Mass ratio] 10 mg/mg 9 - 20 [facility] Drug Scr, Abuse, Uron 2024 Amphetamine(s),Ur Negative Normal NEG [facility] Comment on above: Result Comment: Cuto ff: 1000 ng/mL Performed By: #### D AU #### [facility] [address] [place] [address] Aerophysicist: Dmitri Galloway MD Barbiturate(s),Ur Negative Normal NEG [facility] Comment on above: Result Comment: Cuto ff: 200 ng/ml Performed By: #### D AU #### [facility] [address] [place] [address] [place] [address] Aerophysicist: Dmitri Galloway MD Benzodiazepine(s) Negative Normal NEG [facility] Comment on above: Result Comment: Cuto ff: 200 ng/ml Performed By: #### D AU #### [facility] [address] [place] [address] [place] [address] Aerophysicist: Dmitri Galloway MD Buprenorphrine, Ur Negative Normal NEG [facility] Comment on above: Result Comment: Cuto ff: 5 ng/ml Performed By: #### D AU #### [facility] [address] [place] [address] [place] [address] Aerophysicist: Dmitri Galloway MD Cannabinoid(s),Ur Negative Normal NEG [facility] Comment on above: Result Comment: Cuto ff: 50 ng/ml Performed By: #### D AU #### [facility] [address] [place] [address] Dr[place], [place] [phone] Aerophysicist: Dmitri Galloway MD Cocaine Metabolite Negative Normal NEG [facility] Comment on above: Result Comment: Cuto ff: 300 ng/ml Performed By: #### D AU #### [facility] [address] [place] [address] [place] [address] Aerophysicist: Dmitri Galloway MD Fentanyl, Urine Negative Normal NEG [facility] Comment on above: Result Comment: Cuto ff: 5 ng/ml Performed By: #### D AU #### [facility] [address] [place] [address] [place] [address] Aerophysicist: Dmitri Galloway MD Interpretive Info This method is a screening test to detect only these drug classes as part of a Normal [facility] Comment on above: Result Comment: medi paris workup. Confirmatory testing by another method should be ordered if clinically indicated. Performed By: #### D AU #### [facility] [address] [place] [address] [place] [address] Aerophysicist: Dmitri Galloway MD Methadone Ql (U) Negative Normal NEG [facility] Comment on above: Result Comment: Cuto ff: 300 ng/ml Performed By: #### D AU #### [address] [place], [place] [id number] Aerophysicist: Dmitri Galloway MD Opiate(s), Ur Negative Normal NEG [facility] Comment on above: Result Comment: Cuto ff: 300 ng/ml Note: The Opiate screen is not intended to detect Oxycodone. Performed By: #### D AU #### [facility] [address] [place] [address] [place] [address] Aerophysicist: Dmitri Galloway MD Oxycodone, Urine Negative Normal NEG [facility] Comment on above: Result Comment: Cuto ff: 100 ng/ml Performed By: #### D AU #### [address] [place] [address] Aerophysicist: Dmitri Galloway MD Phencyclidine, Ur Negative Normal NEG [facility] Comment on above: Result Comment: Cuto ff: 25 ng/ml Performed By: #### D AU #### [facility] [address] [place] [address] [place]. [place], [place] [phone] Aerophysicist: Dmitri Galloway MD Drug screen multi urineon Amphetamines Ql (U) Negative NEGATIVE [facility] Comment on above: Cutoff: 1000 ng/mL Barbiturates Screen Ql (U) Negative NEGATIVE [facility] Comment on above: Cutoff: 200 ng/ml Benzodiazepines Ql (U) Negative NEGATIVE [facility] Comment on above: Cutoff: 200 ng/ml Buprenorphine Ql (U) Negative NEGATIVE [facility] Comment on above: Cutoff: 5 ng/ml Cannabinoids Screen Ql (U) Negative NEGATIVE [facility] Comment on above: Cutoff: 50 ng/ml Cocaine Ql (U) Negative NEGATIVE [facility] Comment on above: Cutoff: 300 ng/ml fentaNYL Ql (U) Negative NEGATIVE [facility] Comment on above: Cutoff: 5 ng/ml Methadone Ql (U) Negative NEGATIVE [facility] Comment on above: Cutoff: 300 ng/ml Opiates Screen Ql (U) Negative NEGATIVE [facility] Comment on above: Cutoff: 300 ng/ml Note: The Opiate screen is not intended to detect Oxycodone. oxyCODONE Ql (U) Negative NEGATIVE [facility] Comment on above: Cutoff: 100 ng/ml Phencyclidine Ql (U) Negative NEGATIVE [facility] Comment on above: Cutoff: 25 ng/ml Test Information This method is a screening test to detect only these drug classes as part of a medical workup. Confirmatory testing by another method should be ordered if clinically indicated. [facility] Protein / Creatinine Ratio, Urineon 05-16-2024 Creatinine (U) [Mass/Vol] 108.0 mg/dL 28.0 - 217.0 mg/dL [facility] Protein (U) [Mass/Vol] 13 mg/dL [facility] Comment on above: No normal range esta blished. Urine Total Protein Creatinine Ratio 0.12 0.00 - 0.20 [facility] Protein,Tot,[place] Uron 2024 Creatinine [Mass/Vol] 108.0 mg/dL Normal 28.0-217.0 [facility] Comment on above: Performed By: #### U RTPRT #### [facility] [address] [place] [address] Aerophysicist: Dmitri Galloway MD Tot Prot. Conc. 13 mg/dL Normal [facility] Comment on above: Result Comment: No n ormal range established. Performed By: #### U RTPRT #### [facility] [address] [place] [address] [place] [address] Aerophysicist: Dmitri Galloway MD TP/Cre Ratio 0.12 Normal 0.00-0.20 [facility] Comment on above: Performed By: #### U RTPRT #### [facility] [address] [place] [address] [place] [address] Aerophysicist: Dmitri Galloway MD TYPE AND SCREENon 05-16-2024 ABO and Rh group Nom (Bld) Blood group A Rh(D) positive [facility] Arm Band Number [id number] [facility] Blood Bank Sample Expiration 05/19/2024,2359 [facility] Blood group antibodies identified Nom Negative [facility] Type + Screenon 05-16-2024 Type + Screen Sample Expiration 05/19/2024,2359 Arm Band Number [id number] ABO/Rh(D) A POSITIVE Antibody Screen NEGATIVE Normal [facility] Comment on above: Performed By: #### V AGP #### [facility] [address] [place], [place] [id number] Aerophysicist: Jeff Morrell MD [address] [place] [address] Aerophysicist: Dmitri Galloway MD Urinalysison 05-16-2024 Bilirubin Ql (U) Negative NEGATIVE [facility] Clarity (U) Clear Clear [facility] Color (U) Yellow Yellow [facility] Glucose Test strip (U) [Mass/Vol] Negative NEGATIVE mg/dL [facility] Hemoglobin Auto test strip Ql (U) Negative NEGATIVE [facility] Ketones (U) [Mass/Vol] Negative NEGAT [place] mg/dL [facility] Leukocyte esterase Test strip Ql (U) Negative NEGATIVE [facility] Nitrite Ql (U) Negative NEGATIVE [facility] pH (U) 7.0 [pH] 5.0 - 9.0 [facility] Protein (U) [Mass/Vol] Negative NEGAT [place] mg/dL [facility] Specific gravity (U) [Rel density] 1.015 1.010 - 1.020 [facility] Urobilinogen Qn (U) Normal 0.0 - 1. 0 EU/dL [facility] Urinalysis, Routineon 2024 Bilirubin, SemiQt,Ur Negative Normal NEG [facility] Comment on above: Performed By: #### U A #### [facility] [address] [place], [place] [id number] Aerophysicist: Dmitri Galloway MD Blood, Urine Negative Normal NEG [facility] Comment on above: Performed By: #### U A #### [facility] [address] [place] [address] [place], [place] [id number] Aerophysicist: Dmitri Galloway MD Clarity (U) Clear Normal CLEAR [facility] Comment on above: Performed By: #### U A #### [facility] [address] [place], [place] [phone] Aerophysicist: Dmitri Galloway MD Color (U) Yellow Normal YEL [facility] Comment on above: Performed By: #### U A #### [facility] [address] [place] [address] [place], [place] [phone] Aerophysicist: Dmitri Galloway MD Glucose Ql (U) Negative Normal NEG [facility] Comment on above: Performed By: #### U A #### [facility] [address] [place] [address] Aerophysicist: Dmitri Galloway MD Ketones Ql (U) Negative Normal NEG [facility] Comment on above: Performed By: #### U A #### [facility] [address] [place] [address] Aerophysicist: Dmitri Galloway MD Leukocyte esterase Test strip Ql (U) Negative Normal NEG [facility] Comment on above: Performed By: #### U A #### [facility] [address] [place], [place] [id number] Aerophysicist: Dmitri Galloway MD Nitrite,Ur Negative Normal NEG [facility] Comment on above: Performed By: #### U A #### [facility] [address] [place] [address] [place], [place] [id number] Aerophysicist: Dmitir Galloway MD PH,Ur 7.0 Normal 5.0-9.0 [facility] Comment on above: Performed By: #### U A #### [facility] [address] [place] [address] [place], [place] [id number] Aerophysicist: Dmitri Galloway MD Protein Ql (U) Negative Normal NEG [facility] Comment on above: Performed By: #### U A #### [facility] [facility] [address] [place] [address] [place]. [place], [place] [id number] Aerophysicist: Dmitri Galloway MD Spec. [place],Ur 1.015 Normal 1.010-1.020 [facility] Comment on above: Performed By: #### U A #### [facility] [address] [place] [address] [place]. [place], [place] [phone] Aerophysicist: Dmitri Galloway MD Urobilinogen,Ur Normal Normal 0.0-1.0 [facility] Comment on above: Performed By: #### U A #### [facility] [address] [place] [address] Dr. [place], [place] [phone] Aerophysicist: Dmitri Galloway MD Rule Out Grp.B Strepon 05-10 Rule Out Grp.B Strep Specimen Descriptio n .VAGINA Special Requests Site: Genital Culture NEGATIVE FOR GROUP B STREPTOCOCCI Report Status FINAL 05/10/2024 [facility] Comment on above: Performed By: #### V AGP #### [address] [id number] Aerophysicist: Jeff Morrell MD [address] [place] [address] Aerophysicist: Dmitri Galloway MD Chlamydia/GC,DNA Ampon 05-08 Chlamydia Probe Negative Normal [facility] Comment on above: Result Comment: CHLA MYDIA TRACHOMATIS DNA not detected by nucleic acid amplification. This test is intended for medical purposes only and is not valid for the evaluation of suspected sexual abuse or for other forensic purposes. In certain contexts, culture may be required to meet applicable laws and regulations for diagnosis of C. trachomatis and N. gonorrhoeae infections. Per 2014 CDC recommendations, this test does not include confirmation of positive results by an alternative nucleic acid target. Performed By: #### V AGP #### [address] [id number] Aerophysicist: Jeff Morrell MD [address] [place] [address] Aerophysicist: Dmitri Galloway MD Gonorrhea Probe Negative [facility] Comment on above: Result Comment: NEIS SERIA GONORRHOEAE DNA not detected by nucleic acid amplification. This test is intended for medical purposes only and is not valid for the evaluation of suspected sexual abuse or for other forensic purposes. In certain contexts, culture may be required to meet applicable laws and regulations for diagnosis of C. trachomatis and N. gonorrhoeae infections. Per 2014 CDC recommendations, this test does not include confirmation of positive results by an alternative nucleic acid target. Performed By: #### V AGP #### [id number] [place], [place] [id number] Aerophysicist: Jeff Morrell MD [address] [place] [address] Aerophysicist: Dmitri Galloway MD Vaginitis DNA Probeon 2024 Kimmy species Positive Abnormal NEGATIVE [facility] Comment on above: for Kimmy sp. Method of testing is a DNA probe intended for detection and identification of Kimmy species, Gardnerella vaginalis, and Trichomonas vaginalis nucleic acid in vaginal fluid specimens from patients with symptoms of vaginitis/vaginosis. GARDNERELLA VAGINALIS Negative NEGATIVE [facility] Comment on above: for Gardnerella vagi nalis Interpretation and review of laboratory results Abnormal [facility] Source .VAGINAL SWAB [facility] Trichomonas Negative NEGATIVE [facility] Comment on above: for Trichomonas Vagi nalis [facility] Kimmy Positive Abnormal NEG [facility] Comment on above: Result Comment: for Kimmy sp. Method of testing is a DNA probe intended for detection and identification of Kimmy species, Gardnerella vaginalis, and Trichomonas vaginalis nucleic acid in vaginal fluid specimens from patients with symptoms of vaginitis/vaginosis. Performed By: #### V AGP #### [address] [address] Aerophysicist: Jeff Morrell MD [facility] [address] [place] [address] [place]. [place], [place] [phone] Aerophysicist: Dmitri Galloway MD Gardnerella Negative Normal [facility] Comment on above: Result Comment: for Gardnerella vaginalis Performed By: #### V AGP #### [address] [address] Aerophysicist: Jeff Morrell MD [facility] [address] [place] [address] [place]. [place], [place] [phone] Aerophysicist: Dmitri Galloway MD Trichomonas Negative Normal [facility] Comment on above: Result Comment: for Trichomonas Vaginalis Performed By: #### V AGP #### [address] [address] Aerophysicist: Jeff Morrell MD [facility] [address] [place] [address] [place] [address] Aerophysicist: Dmitri Galloway MD Vaginitis DNA Probeon 2024 Source .VAGINAL SWAB [facility] Comment on above: Performed By: #### V AGP #### [address] [address] Aerophysicist: Jeff Morrell MD [facility] [address] [place] [address] Aerophysicist: Dmitri Galloway MD Rule Out Grp.B Strepon 04-22 Rule Out Grp.B Strep Specimen Descriptio n .VAGINA Special Requests Site: Genital Culture NEGATIVE FOR GROUP B STREPTOCOCCI Report Status FINAL 04/22/2024 Normal [facility] Comment on above: Performed By: #### R OGBS #### [address] [phone] Aerophysicist: Jeff Morrell MD Chlamydia/GC,DNA Ampon 04-21 Chlamydia Probe Negative [facility] Comment on above: Result Comment: CHLA MYDIA TRACHOMATIS DNA not detected by nucleic acid amplification. This test is intended for medical purposes only and is not valid for the evaluation of suspected sexual abuse or for other forensic purposes. In certain contexts, culture may be required to meet applicable laws and regulations for diagnosis of C. trachomatis and N. gonorrhoeae infections. Per 2014 CDC recommendations, this test does not include confirmation of positive results by an alternative nucleic acid target. Performed By: #### S WCGP #### [address] [id number] Aerophysicist: Jeff Morrell MD Gonorrhea Probe Negative Normal [facility] Comment on above: Result Comment: NEIS SERIA GONORRHOEAE DNA not detected by nucleic acid amplification. This test is intended for medical purposes only and is not valid for the evaluation of suspected sexual abuse or for other forensic purposes. In certain contexts, culture may be required to meet applicable laws and regulations for diagnosis of C. trachomatis and N. gonorrhoeae infections. Per 2014 CDC recommendations, this test does not include confirmation of positive results by an alternative nucleic acid target. Performed By: #### S WCGP #### [address] [phone] Aerophysicist: Jeff Morrell MD CBC with Diffon 04-19-2024 Abs. Basophil <0.03 Normal 0.00-0.20 [facility] Comment on above: Performed By: #### T REP, CDP #### [facility] [address] [place] [address] Aerophysicist: Jeff Morrell MD Abs. Eosinophil <0.03 Normal 0.00-0.44 [facility] Comment on above: Performed By: #### T REP, CDP #### [facility] [employer] [address] [place] [address] Aerophysicist: Jeff Morrell MD Abs.Imm.Granulocyte 0.06 k/uL Normal 0.00-0.30 [facility] Comment on above: Performed By: #### T REP, CDP #### [facility] [employer] [address] [place] [address] Aerophysicist: Jeff Morrell MD Abs.Neutrophil (Seg) 8.13 k/uL High 1.50-8.10 [facility] Comment on above: Performed By: #### T REP, CDP #### [facility] [employer] [address] [place] [address] Aerophysicist: Jeff Morrell MD Basophils/100 WBC (Bld) 0 % Normal 0-2 [facility] Comment on above: Performed By: #### T REP, CDP #### [facility] [employer] [address] [place] [address] Aerophysicist: Jeff Morrell MD Eosinophils/100 WBC (Bld) 0 % Low 1-4 [facility] Comment on above: Performed By: #### T REP, CDP #### [facility] [employer] [address] [place] [address] Aerophysicist: Jeff Morrell MD Erythrocyte distribution width (RBC) [Ratio] 13.2 % Normal 11.8-14.4 [facility] Comment on above: Performed By: #### T REP, CDP #### [facility] [employer] [address] [place] [phone] Aerophysicist: Jeff Morrell MD Hematocrit (Bld) [Volume fraction] 34.6 % Low 36.3-47.1 [facility] Comment on above: Performed By: #### T REP, CDP #### [address] [address] Aerophysicist: Jeff Morrell MD Hemoglobin (Bld) [Mass/Vol] 11.1 g/dL Low 11.9-15.1 [facility] Comment on above: Performed By: #### T REP, CDP #### [address] [address] Aerophysicist: Jeff Morrell MD Immature granulocytes/100 WBC (Bld) 1 % High 0 [facility] Comment on above: Performed By: #### T REP, CDP #### [address] [address] Aerophysicist: Jeff Morrell MD Lymphocytes (Bld) [#/Vol] 1.70 10*3/uL Normal 1.10-3.70 [facility] Comment on above: Performed By: #### T REP, CDP #### [address] [address] Aerophysicist: Jeff Morrell MD Lymphocytes/100 WBC (Bld) 17 % Low 24-43 [facility] Comment on above: Performed By: #### T REP, CDP #### [address] [address] Aerophysicist: Jeff Morrell MD MCH (RBC) [Entitic mass] 28.5 pg Normal 25.2-33.5 [facility] Comment on above: Performed By: #### T REP, CDP #### [address] [address] Aerophysicist: Jeff Morrell MD MCHC (RBC) [Mass/Vol] 32.1 g/dL Normal 28.4-34.8 [facility] Comment on above: Performed By: #### T REP, CDP #### [address] [address] Aerophysicist: Jeff Morrell MD MCV (RBC) [Entitic vol] 88.7 fL Normal 82.6-102.9 [facility] Comment on above: Performed By: #### T REP, CDP #### [place] [address] Aerophysicist: Jeff Morrell MD Monocytes (Bld) [#/Vol] 0.10 10*3/uL Normal 0.10-1.20 [facility] Comment on above: Performed By: #### T REP, CDP #### [place] [address] Aerophysicist: Jeff Morrell MD Monocytes/100 WBC (Bld) 1 % Low 3-12 [facility] Comment on above: Performed By: #### T REP, CDP #### [address] [address] Aerophysicist: Jeff Morrell MD Neutrophil (Seg) 81 % High 36-65 [facility] Comment on above: Performed By: #### T REP, CDP #### [place] [address] Aerophysicist: Jeff Morrell MD NRBC Automated 0.0 per 100 WBC Normal 0.0 [facility] Comment on above: Performed By: #### T REP, CDP #### [place] [address] Aerophysicist: Jeff Morrell MD Platelet mean volume (Bld) [Entitic vol] 11.4 fL Normal 8.1-13.5 [facility] Comment on above: Performed By: #### T REP, CDP #### [address] [address] Aerophysicist: Jeff Morrell MD Platelets (Bld) [#/Vol] 202 10*3/uL Normal 138-453 [facility] Comment on above: Performed By: #### T REP, CDP #### [address] [address] Aerophysicist: Jeff Morrell MD RBC (Bld) [#/Vol] 3.90 10*6/uL Low 3.95-5.11 [facility] Comment on above: Performed By: #### T REP, CDP #### [address] [address] Aerophysicist: Jeff Morrell MD WBC (Bld) [#/Vol] 10.0 10*3/uL Normal 3.5-11.3 [facility] Comment on above: Performed By: #### T REP, CDP #### [address] [address] Aerophysicist: Jeff Morrell MD Drug Scr, Abuse, Uron 2024 Amphetamine(s),Ur Negative Normal NEG [facility] Comment on above: Result Comment: Cuto ff: 1000 ng/mL Performed By: #### U AX, LENARD #### [address] [address] Aerophysicist: Jeff Morrell MD Barbiturate(s),Ur Negative Normal NEG [facility] Comment on above: Result Comment: Cuto ff: 200 ng/ml Performed By: #### U AX, LENARD #### [address] [address] Aerophysicist: Jeff Morrell MD Benzodiazepine(s) Negative Normal NEG [facility] Comment on above: Result Comment: Cuto ff: 200 ng/ml Performed By: #### U AX, LENARD #### [address] [place] [address] Aerophysicist: Jeff Morrell MD Cannabinoid(s),Ur Negative Normal NEG [facility] Comment on above: Result Comment: Cuto ff: 50 ng/ml Performed By: #### U AX, LENARD #### [address] [address] Aerophysicist: Jeff Morrell MD Cocaine Metabolite Negative Normal NEG [facility] Comment on above: Result Comment: Cuto ff: 300 ng/ml Performed By: #### U AX, LENARD #### [address] [address] Aerophysicist: Jeff Morrell MD Fentanyl, Urine Negative Normal NEG [facility] Comment on above: Result Comment: Cuto ff: 5 ng/ml Performed By: #### U AX, LENARD #### [address] [address] Aerophysicist: Jeff Morrell MD Interpretive Info Assay provides rapid clinical screening only. Presumptive positive results for Normal [facility] Comment on above: Result Comment: lega l purposes should be confirmed by another method. To request confirmation, please call the lab within 7 days of sample submission. Performed By: #### U AX, LENARD #### [address] [address] Aerophysicist: Jeff Morrell MD Methadone Ql (U) Negative Normal NEG [facility] Comment on above: Result Comment: Cuto ff: 300 ng/ml Performed By: #### U AX, LENARD #### [address] [address] Aerophysicist: Jeff Morrell MD Opiate(s), Ur Negative Normal NEG [facility] Comment on above: Result Comment: Cuto ff: 300 ng/ml Performed By: #### U AX, LENARD #### [address] [address] Aerophysicist: Jeff Morrell MD Oxycodone, Urine Negative Normal NEG [facility] Comment on above: Result Comment: Cuto ff: 100 ng/ml Performed By: #### U AX, LENARD #### [address] [address] Aerophysicist: Jeff Morrell MD Phencyclidine, Ur Negative Normal NEG [facility] Comment on above: Result Comment: Cuto ff: 25 ng/ml Performed By: #### U AX, LENARD #### [address] [address] Aerophysicist: Jeff Morrell MD T.pallidum Ab Screenon 04-19 T.pallidum Ab Screen Non-Reactive Normal NR [facility] Comment on above: Result Comment: T. pallidum antibodies are not detected. There is no serological evidence of infection with T. pallidum (early primary syphilis cannot be excluded). Retest in 2-4 weeks if syphilis is clinically suspect. Performed By: #### T REP, CDP #### [address] [address] Aerophysicist: Jeff Morrell MD Type + Screenon 04-19-2024 Type + Screen Sample Expiration 04/22/2024,2359 Arm Band Number BE [id number] ABO/Rh(D) A POSITIVE Antibody Screen NEGATIVE Normal [facility] Comment on above: Performed By: #### T YS #### [address] [address] Aerophysicist: Jeff Morrell MD UA w/Reflex Cultureon 2024 Bilirubin, SemiQt,Ur Negative Normal NEG [facility] Comment on above: Performed By: #### U AX, LENARD #### [facility] [employer] [address] [place] [address] Aerophysicist: Jeff Morrell MD Blood, Urine Negative Normal NEG [facility] Comment on above: Performed By: #### U AX, LENARD #### [address] [address] Aerophysicist: Jeff Morrell MD Clarity (U) Clear Normal CLEAR [facility] Comment on above: Performed By: #### U AX, LENARD #### [address] [address] Aerophysicist: Jeff Morrell MD Color (U) Yellow Normal YEL [facility] Comment on above: Performed By: #### U AX, LENARD #### [address] [address] Aerophysicist: Jeff Morrell MD Comment Microscopic exam not performed based on chemical results unless requested in Normal [facility] Comment on above: Result Comment: orig inal order. Performed By: #### U AX, LENARD #### [address] [address] Aerophysicist: Jeff Morrell MD Glucose Ql (U) Negative Normal NEG [facility] Comment on above: Performed By: #### U AX, LENARD #### [address] [address] Aerophysicist: Jeff Morrell MD Ketones Ql (U) Negative Normal NEG [facility] Comment on above: Performed By: #### U AX, LENARD #### [facility] [employer] [address] [place] [address] Aerophysicist: Jeff Morrell MD Leukocyte esterase Test strip Ql (U) Negative Normal NEG [facility] Comment on above: Performed By: #### U AX, LENARD #### [address] [address] Aerophysicist: Jeff Morrell MD Nitrite,Ur Negative Normal NEG [facility] Comment on above: Performed By: #### U AX, LENARD #### [address] [address] Aerophysicist: Jeff Morrell MD PH,Ur 7.0 Normal 5.0-8.0 [facility] Comment on above: Performed By: #### U AX, LENARD #### [address] [address] Aerophysicist: Jeff Morrell MD Protein Ql (U) Negative Normal NEG [facility] Comment on above: Performed By: #### U AX, LENARD #### [address] [address] Aerophysicist: Jeff Morrell MD Spec. [place],Ur 1.005 Normal 1.005-1.030 [facility] Comment on above: Performed By: #### U AX, LENARD #### [address] [address] Aerophysicist: Jeff Morrell MD Urobilinogen,Ur Normal Normal 0.0-1.0 [facility] Comment on above: Performed By: #### U AX, LENARD #### [address] [address] Aerophysicist: Jeff Morrell MD Vaginitis DNA Probeon 2024 Kimmy Negative Normal NEG [facility] Comment on above: Result Comment: for Kimmy sp. Method of testing is a DNA probe intended for detection and identification of Kimmy species, Gardnerella vaginalis, and Trichomonas vaginalis nucleic acid in vaginal fluid specimens from patients with symptoms of vaginitis/vaginosis. Performed By: #### V AGP #### [address] [address] Aerophysicist: Jeff Morrell MD Gardnerella Negative Normal NEG [facility] Comment on above: Result Comment: for Gardnerella vaginalis Performed By: #### V AGP #### [address] [place] [address] Aerophysicist: Jeff Morrell MD Trichomonas Negative Normal NEG [facility] Comment on above: Result Comment: for Trichomonas Vaginalis Performed By: #### V AGP #### [address] [address] Aerophysicist: Jeff Morrell MD Source .VAGINAL SWAB Normal [facility] Comment on above: Performed By: #### V AGP #### [address] [address] Aerophysicist: Jeff Morrell MD HPV DNA High Riskon 11-23-19 24 HPV Interp [facility] Comment on above: Result Comment: This test amplifies and detects DNA of 14 high-risk HPV types associated with cervical cancer and its precursor lesions (HPV types 16,18, 31, 33, 35, 39, 45, 51, 52, 56, 58, 59, 66, and 68). Sensitivity may be affected by specimen collection methods, stage of infection, and the presence of interfering substances. Results should be interpreted in conjunction with other available laboratory and clinical data. A negative high-risk HPV result does not exclude the possibility of future cytologic HSIL or underlying CIN2-3 or cancer. This test is intended for medical purposes only and is not valid for the evaluation of suspected sexual abuse or for other forensic purposes. Performed By: #### V AGP #### [address] [address] Aerophysicist: Jeff Morrell MD [facility] [address] [place] [address] [place] [address] Aerophysicist: Dmitri Galloway MD HPV Type 16 Not detected Normal [facility] Comment on above: Performed By: #### V AGP #### [address] [address] Aerophysicist: Jeff Morrell MD [facility] [address] [place] [address] [place] [address] Aerophysicist: Dmitri Galloway MD HPV Type 18 Not detected Normal [facility] Comment on above: Performed By: #### V AGP #### [facility] [address] [place] [address] Aerophysicist: Jeff Morrell MD [facility] [address] [place] [address] [place]. [place], [place] [phone] Aerophysicist: Dmitri Galloway MD Other High Risk HPV Not detected Normal [facility] Comment on above: Performed By: #### V AGP #### [address] [address] Aerophysicist: Jeff Morrell MD [address] [place], [place] [phone] Aerophysicist: Dmitri Galloway MD HPV DNA High Riskon 11-22-19 24 HPV Sample .THIN PREP [facility] Comment on above: Performed By: #### V AGP #### [address] [address] Aerophysicist: Jeff Morrell MD [address] [place], [place] [phone] Aerophysicist: Dmitri Galloway MD Source CERVICAL MATERIAL Normal [facility] Comment on above: Performed By: #### V AGP #### [address] [address] Aerophysicist: Jeff Morrell MD [facility] [address] [place] [address] [place] [address] Aerophysicist: Dmitri Galloway MD Cytology Reporton 11-21-2023 Cytology report Cyto stain.thin prep Doc (Cvx/Vag) (NOTE) Path Number: [id number] DIAGNOSIS Imaged ThinPrep Pap - Cervical (1 monolayer slide): Specimen Adequacy: Satisfactory for evaluation. -Endocervical/transf ormation zone component is absent. Descriptive Diagnosis: Negative for intraepithelial lesion or malignancy. Shift in jakob suggestive of bacterial vaginosis. Cytotech Screener: EY Electronically Signed Out Sam MANSFIELD(ASCP) ey/12/03/2023 Procedure/Addendum HPV Procedure Report Date Ordered: 11/22/2023 Status: Signed Out Date Complete: 11/23/2023 By: System Interface Date Reported: 11/23/2023 Sample: HPV Type 16 Result: Not Detected Ref Range: (Not Detected) Sample: HPV Type 18 Result: Not Detected Ref Range: (Not Detected) Sample: Other High Risk HPV Result: Not Detected Ref Range: (Not Detected) Sample: HPV Interp Result: Ref Range: (Not Detected) This test amplifies and detects DNA of 14 high-risk HPV types associated with cervical cancer and its precursor lesions (HPV types 16,18, 31, 33, 35, 39, 45, 51, 52, 56, 58, 59, 66, and 68). Sensitivity may be affected by specimen collection methods, stage of infection, and the presence of interfering substances. Results should be interpreted in conjunction with other available laboratory and clinical data. A negative high-risk HPV result does not exclude the possibility of future cytologic HSIL or underlying CIN2-3 or cancer. This test is intended for medical purposes only and is not valid for the evaluation of suspected sexual abuse or for other forensic purposes. Performed at [address] [address] ([phone] Source of Specimen: A: Imaged ThinPrep Pap - Cervical (1 monolayer slide) HPV Reflex?............. .........HPV Regardless Clinical History Co-Test: ThinPrep Pap with high risk HPV testing R87.612 Cytology smear of cervix with LSIL Z12.4 Encounter for screening for malignant neoplasm of cervix Z11.51 Encounter for screening for HPV History of: Z3A.12; 12 weekls gestation of LMP: 08/27/2023 Processing Lab: [address] [phone] Interpretation performed at [address] [phone] This Pap Test has been evaluated with the assistance of the ThinPrep Pap Test Imaging System. The Pap smear is a screening test primarily for squamous epithelial lesions, which is subject to both false negative and false positive results. Your patient should be reminded to consult you immediately if she experiences any suspicious signs or symptoms, regardless of her Pap smear result. GYNECOLOGIC CYTOLOGY REPORT Patient Name: ALIE EAGLE [facility] Rec: [id number] [facility] ANATOMIC PATHOLOGY [address] [place] [phone] [facility] Chlamydia/GC DNA, Uron 10-24 Chlamydia Probe, Ur Negative Normal [facility] Comment on above: Result Comment: CHLA MYDIA TRACHOMATIS DNA not detected by nucleic acid amplification. This test is intended for medical purposes only and is not valid for the evaluation of suspected sexual abuse or for other forensic purposes. In certain contexts, culture may be required to meet applicable laws and regulations for diagnosis of C. trachomatis and N. gonorrhoeae infections. Per 2014 CDC recommendations, this test does not include confirmation of positive results by an alternative nucleic acid target. Performed By: #### U CGP #### [address] [address] Aerophysicist: Jeff Morrell MD Gonorrhea Probe, Ur Negative [facility] Comment on above: Result Comment: NEIS SERIA GONORRHOEAE DNA not detected by nucleic acid amplification. This test is intended for medical purposes only and is not valid for the evaluation of suspected sexual abuse or for other forensic purposes. In certain contexts, culture may be required to meet applicable laws and regulations for diagnosis of C. trachomatis and N. gonorrhoeae infections. Per 2014 CDC recommendations, this test does not include confirmation of positive results by an alternative nucleic acid target. Performed By: #### U CGP #### [address] [address] Aerophysicist: Jeff Morrell MD Cult,Urineon 10-25-2023 Cult,Urine Specimen Description .CLEAN CATCH URINE Special Requests Site: Urine Culture NO GROWTH Report Status FINAL 10/25/2023 [facility] Comment on above: Performed By: #### V AGP #### [address] [address] Aerophysicist: Jeff Morrell MD [facility] [address] [place] [address] Aerophysicist: Dmitri Galloway MD HIV Ag/Abon 10-25-2023 HIV Ag/Ab Non-Reactive Normal [facility] Comment on above: Result Comment: No l aboratory evidence of HIV infection. If acute HIV infection is suspected, consider testing for HIV-1 RNA. Performed By: #### A HCV, HIVCMB #### [address] [address] Aerophysicist: Jeff Morrell MD Hep C Abon 1 Hep C Ab Non-Reactive Normal [facility] Comment on above: Result Comment: The hepatitis C procedure used in our laboratory is a Chemiluminescent test specific for three recombinant HCV antigens. A negative anti-HCV result indicates that the antibodies to hepatitis C virus are not present at this time. Individuals with reactive anti-HCV should be considered infected and infectious until proven otherwise. Confirmation of all equivocal or reactive results is recommended by ordering HCV RNA by PCR. Performed By: #### A HCV, HIVCMB #### [address] [address] Aerophysicist: Jeff Morrell MD Profileon T.pallidum Ab Screen Non-Reactive Normal [facility] Comment on above: Result Comment: T. pallidum antibodies are not detected. There is no serological evidence of infection with T. pallidum (early primary syphilis cannot be excluded). Retest in 2-4 weeks if syphilis is clinically suspect. Performed By: #### P RENAT #### [address] [address] Aerophysicist: Jeff Morrell MD [facility] [address] [place] [address] Aerophysicist: Dmitri Galloway MD Rubella Ab, IgG 76.8 IU/mL Normal [facility] Comment on above: Result Comment: REFERENCE RANGE: <5.0 NON-REACTIVE (non-immune) 5.0 TO 9.9 EQUIVOCAL >=10.0 REACTIVE (immune) Performed By: #### P RENAT #### [address] [address] Aerophysicist: Jeff Morrell MD [address] [place] [address] Aerophysicist: Dmitri Galloway MD Hep B Surf Ag Non-Reactive Normal NR [facility] Comment on above: Performed By: #### P RENAT #### [address] [address] Aerophysicist: Jeff Morrell MD [address] [place] [address] Aerophysicist: Dmitri Galloway MD Profileon 4 Abs. Basophil <0.03 Normal 0.00-0.20 [facility] Comment on above: Performed By: #### P RENAT #### [address] [address] Aerophysicist: Jeff Morrell MD [address] [place] [address] Aerophysicist: Dmitri Galloway MD Abs.Imm.Granulocyte <0.03 Normal 0.00-0.30 [facility] Comment on above: Performed By: #### P RENAT #### [address] [address] Aerophysicist: Jeff Morrell MD [address] [place] [address] Aerophysicist: Dmitri Galloway MD Abs.Neutrophil (Seg) 2.45 k/uL Normal 1.50-8.10 [facility] Comment on above: Performed By: #### P RENAT #### [address] [address] [place] [address] Aerophysicist: Jeff Morrell MD [address] [place] [id number] Aerophysicist: Dmitri Galloway MD Basophils/100 WBC (Bld) 0 % Normal 0-2 [facility] Comment on above: Performed By: #### P RENAT #### [address] [address] Aerophysicist: Jeff Morrell MD [address] [place] [id number] Aerophysicist: Dmitri Galloway MD Eosinophils (Bld) [#/Vol] 0.03 10*3/uL Normal 0.00-0.44 [facility] Comment on above: Performed By: #### P RENAT #### [address] [address] Aerophysicist: Jeff Morrell MD [address] [place] [id number] Aerophysicist: Dmitri Galloway MD Eosinophils/100 WBC (Bld) 1 % Normal 1-4 [facility] Comment on above: Performed By: #### P RENAT #### [address] [address] Aerophysicist: Jeff Morrell MD [address] [place] [address] Aerophysicist: Dmitri Galloway MD Erythrocyte distribution width (RBC) [Ratio] 12.7 % Normal 11.8-14.4 [facility] Comment on above: Performed By: #### P RENAT #### [address] [address] Aerophysicist: Jeff Morrell MD [address] [place] [id number] Aerophysicist: Dmitri Galloway MD Hematocrit (Bld) [Volume fraction] 38.6 % Normal 36.3-47.1 [facility] Comment on above: Performed By: #### P RENAT #### [address] [address] Aerophysicist: Jeff Morrell MD [facility] [address] [place] [address] [place] [address] Aerophysicist: Dmitri Galloway MD Hemoglobin (Bld) [Mass/Vol] 13.3 g/dL Normal 11.9-15.1 [facility] Comment on above: Performed By: #### P RENAT #### [address] [address] Aerophysicist: Jeff Morrell MD [facility] [address] [place] [address] Dr. [place] [phone] Aerophysicist: Dmitri Galloway MD Immature granulocytes/100 WBC (Bld) 0 % Normal 0 [facility] Comment on above: Performed By: #### P RENAT #### [address] [address] Aerophysicist: Jeff Morrell MD [address] [place] [address] Aerophysicist: Dmitri Galloway MD Lymphocytes (Bld) [#/Vol] 2.12 10*3/uL Normal 1.10-3.70 [facility] Comment on above: Performed By: #### P RENAT #### [address] [address] Aerophysicist: Jeff Morrell MD [facility] [address] [place] [address] Dr. [place] [phone] Aerophysicist: Dmitri Galloway MD Lymphocytes/100 WBC (Bld) 42 % Normal 24-43 [facility] Comment on above: Performed By: #### P RENAT #### [address] [address] Aerophysicist: Jeff Morrell MD [address] [place] [facility]83 Aerophysicist: Dmitri Galloway MD MCH (RBC) [Entitic mass] 30.3 pg Normal 25.2-33.5 [facility] Comment on above: Performed By: #### P RENAT #### [address] [address] Aerophysicist: Jeff Morrell MD [address] [place] [phone] Aerophysicist: Dmitri Galloway MD MCHC (RBC) [Mass/Vol] 34.5 g/dL Normal 28.4-34.8 [facility] Comment on above: Performed By: #### P RENAT #### [address] [address] Aerophysicist: Jeff Morrell MD [address] [place] [phone] Aerophysicist: Dmitri Galloway MD MCV (RBC) [Entitic vol] 87.9 fL Normal 82.6-102.9 [facility] Comment on above: Performed By: #### P RENAT #### [address] [address] Aerophysicist: Jeff Morrell MD [address] [place] [phone] Aerophysicist: Dmitri Galloway MD Monocytes (Bld) [#/Vol] 0.37 10*3/uL Normal 0.10-1.20 [facility] Comment on above: Performed By: #### P RENAT #### [address] [address] Aerophysicist: Jeff Morrell MD [address] [place] [phone] Aerophysicist: Dmitri Galloway MD Monocytes/100 WBC (Bld) 7 % Normal 3-12 [facility] Comment on above: Performed By: #### P RENAT #### [facility] [address] [place] [address] Aerophysicist: Jeff Morrell MD [facility] [address] [place] [address] Dr. [place], [place] [id number] Aerophysicist: Dmitri Galloway MD Neutrophil (Seg) 50 % Normal 36-65 [facility] Comment on above: Performed By: #### P RENAT #### [address] [address] Aerophysicist: Jeff Morrell MD [facility] [address] [place] [address] Dr. [place], [place] [id number] Aerophysicist: Dmitri Galloway MD NRBC Automated 0.0 per 100 WBC Normal 0.0 [facility] Comment on above: Performed By: #### P RENAT #### [facility] [address] [place] [address] Aerophysicist: Jeff Morrell MD [facility] [address] [place] [address] [place] [address] Aerophysicist: Dmitri Galloway MD Platelet mean volume (Bld) [Entitic vol] 11.5 fL Normal 8.1-13.5 [facility] Comment on above: Performed By: #### P RENAT #### [address] [address] Aerophysicist: Jeff Morrell MD [facility] [address] [place] [address] Dr. [place], [place] [phone] Aerophysicist: Dmitri Galloway MD Platelets (Bld) [#/Vol] 222 10*3/uL Normal 138-453 [facility] Comment on above: Performed By: #### P RENAT #### [address] [address] Aerophysicist: Jeff Morrell MD [facility] [address] [place] [address] [place] [address] Aerophysicist: Dmitri Galloway MD RBC (Bld) [#/Vol] 4.39 10*6/uL Normal 3.95-5.11 [facility] Comment on above: Performed By: #### P RENAT #### [address] [place], [place] [id number] Aerophysicist: Jeff Morrell MD [facility] [address] [place] [address] Dr[place] [phone] Aerophysicist: Dmitri Galloway MD WBC (Bld) [#/Vol] 5.0 10*3/uL Normal 3.5-11.3 [facility] Comment on above: Performed By: #### P RENAT #### [address] [id number] Aerophysicist: Jeff Morrell MD [address] [place] [phone] Aerophysicist: Dmitri Galloway MD Type + Scrnon 10-23 Type + Scrn Negative Normal [facility] Comment on above: Performed By: #### P RTYS #### [address] [place] [address] Aerophysicist: Dmitri Galloway MD Automated erythrocytes count in urine sediment (number/area)Ordered By: PROVIDER TEMP on 06-21-2023 RBC Auto (Urine sed) [#/Area] 1-2 [HPF] 0-4 [facility] Automated leukocytes count i n urine sediment (number/area)Ordered By: PROVIDER TEMP on 06-21-2023 WBC Auto (Urine sed) [#/Area] 10-19 [HPF] 0-4 [facility] Bilirubin Test strip Ql (U)O rdered By: PROVIDER TEMP on 06-21-2023 Bilirubin Ql (U) Negative Negative [facility] Color Auto (U)Ordered By: HALIMA DAVIS TEMP on 03-28-2024 Color (U) Yellow Yellow [facility] Dipstick and Microscopicon 0 06-21-2023 Appearance (U) Cloudy Critically abnormal Clear [facility] Comment on above: Order Comment: Name Collection Type:: Clean-Voided Midstream Performed By: #### A DDONUAPLUS, CUU #### [facility] [address] [place] [address] [place] Bacteria,Urine None Seen Normal None Seen [facility] Comment on above: Order Comment: Name Collection Type:: Clean-Voided Midstream Performed By: #### A DDONUAPLUS, CUU #### [place] [address] [place] Bilirubin,Urine Negative Normal Negative [facility] Comment on above: Order Comment: Name Collection Type:: Clean-Voided Midstream Performed By: #### A DDONUAPLUS, CUU #### [place] [address] [place] Color (U) Yellow Normal Yellow [facility] Comment on above: Order Comment: Name Collection Type:: Clean-Voided Midstream Performed By: #### A DDONUAPLUS, CUU #### [place] [address] [place] Glucose Ql (U) Normal Normal Normal [facility] Comment on above: Order Comment: Name Collection Type:: Clean-Voided Midstream Performed By: #### A DDONUAPLUS, CUU #### [place] [address] [place] Hyaline Casts,Urine 0-8 Normal 0-8 [facility] Comment on above: Order Comment: Name Collection Type:: Clean-Voided Midstream Result Comment: PERF ORMED BY: [place] [address] PATHOLOGIST REMANUFACTURING TECHNICIAN MOISES LU M.D. Performed By: #### A DDONUAPLUS, CUU #### [facility] [address] [place] [address] [place] Ketones Ql (U) Negative Normal Negative [facility] Comment on above: Order Comment: Name Collection Type:: Clean-Voided Midstream Performed By: #### A DDONUAPLUS, CUU #### [address] Leukocyte esterase Test strip Ql (U) 1+ High Negative [facility] Comment on above: Order Comment: Name Collection Type:: Clean-Voided Midstream Performed By: #### A DDONUAPLUS, CUU #### [address] Nitrite,Urine Negative Normal Negative [facility] Comment on above: Order Comment: Name Collection Type:: Clean-Voided Midstream Performed By: #### A DDONUAPLUS, CUU #### [address] Occult Blood,Urine Negative Normal Negative [facility] Comment on above: Order Comment: Name Collection Type:: Clean-Voided Midstream Result Comment: PERF ORMED BY: [place] [address] PATHOLOGIST REMANUFACTURING TECHNICIAN MOISES LU M.D. Performed By: #### A DDONUAPLUS, CUU #### [place] [address] [place] pH (U) 7.5 [pH] Normal 5.0-9.0 [facility] Comment on above: Order Comment: Name Collection Type:: Clean-Voided Midstream Performed By: #### A DDONUAPLUS, CUU #### [place] [address] [place] Protein,Urine Negative Normal Negative [facility] Comment on above: Order Comment: Name Collection Type:: Clean-Voided Midstream Performed By: #### A DDONUAPLUS, CUU #### [place] [address] [place] RBC,Urine 1-2 Normal 0-4 [facility] Comment on above: Order Comment: Name Collection Type:: Clean-Voided Midstream Performed By: #### A DDONUAPLUS, CUU #### [place] [address] [place] Specificy [place],Urine 1.020 Normal 1.001-1.030 [facility] Comment on above: Order Comment: Name Collection Type:: Clean-Voided Midstream Performed By: #### A DDONUAPLUS, CUU #### [address] Squamous Epithelial Cell,Urine 10-19 High 0-2 [facility] Comment on above: Order Comment: Name Collection Type:: Clean-Voided Midstream Performed By: #### A DDONUAPLUS, CUU #### [address] Urobilinogen,Urine Normal Normal Normal [facility] Comment on above: Order Comment: Name Collection Type:: Clean-Voided Midstream Performed By: #### A DDONUAPLUS, CUU #### [address] WBC,Urine 10-19 High 0-4 [facility] Comment on above: Order Comment: Name Collection Type:: Clean-Voided Midstream Performed By: #### A DDONUAPLUS, CUU #### [address] ECG 12 lead ECGon 06-21-2023 ECG 12 lead ECG [facility] [place] [address] [place] [address] Electrocardiograph Report Signed Patient: Alie Eagle MR#: [id number] : 1995 Acct:[id number] Age/Sex: 27 / F ADM Date: 06/21/23 Loc: ER Room: Type: [facility] ER Attending Dr: Ordering Provider: Kamar Kraus DO Date of Service: 06/21/23 ECG/ECG 12 lead ECG: Syncope Copies to: Test Reason : Blood Pressure : 122/081 mmHG Vent. Rate : 078 BPM Atrial Rate : 078 BPM P-R Int : 126 ms QRS Dur : 074 ms QT Int : 376 ms P-R-T Axes : 060 061 066 degrees QTc Int : 428 ms Normal sinus rhythm Normal ECG No previous ECGs available Confirmed by EDGAR PEREZ [facility] [place] ([id number]) on 06/24/2023 10:10:38 AM Referred By: Electronically Signed By:BETSEY HERNÁNDEZ MD [facility] Transcribed By: MUS Signed By Betsey Hernández MD, [facility] 06/24/23 1010 Normal [facility] Ketones Auto test strip (U) [Mass/Vol]Ordered By: PROVIDER TEMP on 06-21-2023 Ketones (U) [Mass/Vol] Negative Negative [facility] - UrinalysisOrder ed By: PROVIDER TEMP on 06-21-2023 Hyaline casts LM Ql (Urine sed) 0-8 [LPF] 0-8 [facility] Nitrite Test strip Ql (U)Ord ered By: PROVIDER TEMP on 06-21-2023 Nitrite Ql (U) Negative Negative [facility] Protein Auto test strip (U) [Mass/Vol]Ordered By: PROVIDER TEMP on 06-21-2023 Protein (U) [Mass/Vol] Negative Negative [facility] Specific gravity Auto test s trip (U) [Rel density]Ordered By: PROVIDER TEMP on 06-21-2023 Specific gravity (U) [Rel density] 1.020 1.001-1.030 [facility] Squamous epithelial cells de tection in urine sediment by light microscopyOrdered By: PROVIDER TEMP on 06-21-2023 Epithelial cells.squamous LM Ql (Urine sed) 10-19 [HPF] 0-2 [facility] Urine Cultureon 06-21-2023 Bacteria identified Cx Nom (U) 50,000 colonies/ml mixed bacterial skin contaminants 2 Days PERFORMED BY: [place] [address] PATHOLOGIST REMANUFACTURING TECHNICIAN MOISES LU M.D. Normal [facility] Comment on above: Performed By: #### A SANDRA MICHELLE #### [address] Urine bacteria detection by automated methodOrdered By: PROVIDER TEMP on 06-21-2023 Bacteria Auto Ql (U) None seen None Seen [facility] Urine clarity by refractomet ry automatedOrdered By: PROVIDER TEMP on 06-21-2023 Clarity Refractometry automated (U) Cloudy Clear [facility] Urine glucose measurement by automated test strip (mass/volume)Ordered By: PROVIDER TEMP on 06-21-2023 Glucose Auto test strip (U) [Mass/Vol] Normal mg/dL Normal [facility] Urine hemoglobin detection b y automated test stripOrdered By: PROVIDER TEMP on 06-21-2023 Hemoglobin Auto test strip Ql (U) Negative Negative [facility] Urine leukocyte esterase det ection by automated test stripOrdered By: PROVIDER TEMP on 06-21-2023 Leukocyte esterase Auto test strip Ql (U) 1+ Negative [facility] Urobilinogen Auto test strip (U) [Mass/Vol]Ordered By: PROVIDER TEMP on 06-21-2023 Urobilinogen (U) [Mass/Vol] Normal mg/dL Normal [facility] pH Auto test strip (U)Ordere d By: PROVIDER TEMP on 06-21-2023 pH (U) 7.5 [pH] 5.0-9.0 [facility] XR shoulder LT min 2V*on XR shoulder LT min 2V* [facility] [address] XRay Report Signed Patient: Alie Eagle MR#: [id number] : 1995 Acct:[id number] Age/Sex: 27 / F ADM Date: 06/19/23 Loc: XD Room: Type: [facility] Attending Dr: SUSIE Dinh APRN Copies to: Sushila Chairez APRN, NP-C Ordering Provider: Sushila Chairez APRN, NP-C Date of Service: 06/19/23 XR/XR shoulder LT min 2V*: M25.512 ([id number]) XR/XR cervical spine 5V*: M54.2 5 views of thecervical spine HISTORY: Neck pain with radiation to left shoulder COMPARISON: None POSTOPERATIVE CHANGES: None BONY ALIGNMENT: Mild reversal HYPERMOBILITY::No bending imaging. LISTHESIS:None FRACTURE: None DISC DEGENERATION: Disc spaces are adequate. FACETS: Unremarkable FORAMEN: Unremarkable. DENS: Intact CRANIOCERVICAL JUNCTION: Unremarkable SOFT TISSUES: Unremarkable XR/XR cervical spine 5V* IMPRESSION: No acute cervical spine process. 3 views left shoulder Left shoulder pain with limited range of motion adequate alignment. No acute bony findings. Unremarkable soft tissues. IMPRESSION: Unremarkable exam Impression dictated by: Santhosh Argueta M.D.06/19/2023 2:41 PM Dictation Location: [place] [address] Transcribed By: [facility] 06/19/23 1441 Dictated By: Santhosh Argueta DO 06/19/23 1428 Signed By: 06/19/23 1441 Normal [facility] Influenza virus A and B and SARS-CoV-2 (COVID-19) RNA panel - Respiratory system specon 05-30-2023 Influenza virus A and B RNA and SARS-CoV-2 (COVID-19) N gene panel GABRIELE+probe (Resp) Negative [facility] - Microbiology an d Antimicrobial susceptibilityon 05-30-2023 SARS-CoV-2 (COVID-19) RNA GABRIELE+probe Ql (Unsp spec) Negative [facility] No Panel Informationon 05-29 POC Influenza B (GABRIELE) Negative [facility] No Panel InformationOrdered By: Serena Do on 05-30-2023 Quick Strep (POC) [facility] Ferritinon 08-30-2022 Ferritin [Mass/Vol] 22 ng/mL Normal 13-150 [facility] Comment on above: Order Comment: patie nt not have eaten but drank about 1/2 of mountain dew. Still wants blood drawn today. Result Comment: [facility] [employer] [address] [place] [address] ([phone] Iron Binding Capon 3 % Fe Saturation 23 % Normal 20-55 [facility] Comment on above: Order Comment: patie nt not have eaten but drank about 1/2 of mountain dew. Still wants blood drawn today. Iron [Mass/Vol] 88 ug/dL Normal 37-145 [facility] Comment on above: Order Comment: patie nt not have eaten but drank about 1/2 of mountain dew. Still wants blood drawn today. Total Fe Binding Cap 378 ug/dL Normal 250-450 [facility] Comment on above: Order Comment: patie nt not have eaten but drank about 1/2 of mountain dew. Still wants blood drawn today. Unbound Fe Bind Cap 290 ug/dL Normal 112-347 [facility] Comment on above: Order Comment: patie nt not have eaten but drank about 1/2 of mountain dew. Still wants blood drawn today. Result Comment: [facility] [address] [facility] [place] [address] CBC With Platelet No Differe ntialon 08-29-2022 Erythrocyte distribution width (RBC) [Ratio] 13.6 % Normal 11.5-14.5 [facility] Comment on above: Order Comment: patie nt not have eaten but drank about 1/2 of mountain dew. Still wants blood drawn today. Performed By: #### C BCND #### [facility] [address] [place] [address] Hematocrit (Bld) [Volume fraction] 42.8 % Normal 37.0-47.0 [facility] Comment on above: Order Comment: patie nt not have eaten but drank about 1/2 of mountain dew. Still wants blood drawn today. Performed By: #### C BCND #### [facility] [address] [place] [address] Hemoglobin (Bld) [Mass/Vol] 14.8 g/dL Normal 12.0-16.0 [facility] Comment on above: Order Comment: patie nt not have eaten but drank about 1/2 of mountain dew. Still wants blood drawn today. Performed By: #### C BCND #### [facility] [address] [place] [address] MCH (RBC) [Entitic mass] 31.6 pg Critically high 27.0-31.3 [facility] Comment on above: Order Comment: patie nt not have eaten but drank about 1/2 of mountain dew. Still wants blood drawn today. Performed By: #### C BCND #### [facility] [address] [place] [address] MCHC 34.5 % Normal 33.0-37.0 [facility] Comment on above: Order Comment: patie nt not have eaten but drank about 1/2 of mountain dew. Still wants blood drawn today. Performed By: #### C BCND #### [facility] [address] [place] [address] MCV (RBC) [Entitic vol] 91.5 fL Normal 79.4-94.8 [facility] Comment on above: Order Comment: patie nt not have eaten but drank about 1/2 of mountain dew. Still wants blood drawn today. Performed By: #### C BCND #### [facility] [address] [place] [address] Platelets (Bld) [#/Vol] 261 10*3/uL Normal 130-400 [facility] Comment on above: Order Comment: patie nt not have eaten but drank about 1/2 of mountain dew. Still wants blood drawn today. Performed By: #### C BCND #### [facility] [address] [place] [address] RBC (Bld) [#/Vol] 4.68 10*6/uL Normal 4.20-5.40 [facility] Comment on above: Order Comment: patie nt not have eaten but drank about 1/2 of mountain dew. Still wants blood drawn today. Performed By: #### C BCND #### [facility] [address] [place] [address] WBC (Bld) [#/Vol] 8.7 10*3/uL Normal 4.8-10.8 [facility] Comment on above: Order Comment: patie nt not have eaten but drank about 1/2 of mountain dew. Still wants blood drawn today. Performed By: #### C BCND #### [facility] [address] [place] [address] Comprehensive Metabolic Pane tete 08-29-2022 Albumin [Mass/Vol] 4.3 g/dL Normal 3.5-4.6 [facility] Comment on above: Order Comment: patie nt not have eaten but drank about 1/2 of mountain dew. Still wants blood drawn today. Performed By: #### C MP #### [facility] [address] [place] [address] ALP [Catalytic activity/Vol] 92 U/L Normal 40-130 [facility] Comment on above: Order Comment: patie nt not have eaten but drank about 1/2 of mountain dew. Still wants blood drawn today. Performed By: #### C MP #### [facility] [address] [place] [address] ALT [Catalytic activity/Vol] 52 U/L Critically high 0-33 [facility] Comment on above: Order Comment: patie nt not have eaten but drank about 1/2 of mountain dew. Still wants blood drawn today. Performed By: #### C MP #### [facility] [address] [place] [address] Anion gap [Moles/Vol] 10 mmol/L Normal 9-15 [facility] Comment on above: Order Comment: patie nt not have eaten but drank about 1/2 of mountain dew. Still wants blood drawn today. Performed By: #### C MP #### [facility] [address] [place] [address] AST [Catalytic activity/Vol] 27 U/L Normal 0-35 [facility] Comment on above: Order Comment: patie nt not have eaten but drank about 1/2 of mountain dew. Still wants blood drawn today. Performed By: #### C MP #### [facility] [address] [place] [address] Bilirubin [Mass/Vol] mg/dL Normal 0.2-0.7 [facility] Comment on above: Order Comment: patie nt not have eaten but drank about 1/2 of mountain dew. Still wants blood drawn today. Performed By: #### C MP #### [facility] [address] [place] [address] Calcium [Mass/Vol] 9.0 mg/dL Normal 8.5-9.9 [facility] Comment on above: Order Comment: miguelangel nt not have eaten but drank about 1/2 of mountain dew. Still wants blood drawn today. Performed By: #### C MP #### [facility] [address] [place] [address] Chloride [Moles/Vol] 102 mmol/L Normal 95-107 [facility] Comment on above: Order Comment: patie nt not have eaten but drank about 1/2 of mountain dew. Still wants blood drawn today. Performed By: #### C MP #### [facility] [address] [place] [address] CO2 [Moles/Vol] 25 mmol/L Normal 20-31 [facility] Comment on above: Order Comment: patie nt not have eaten but drank about 1/2 of mountain dew. Still wants blood drawn today. Performed By: #### C MP #### [facility] [address] [place] [address] Creatinine [Mass/Vol] 0.57 mg/dL Normal 0.50-0.90 [facility] Comment on above: Order Comment: patiroseanne nt not have eaten but drank about 1/2 of mountain dew. Still wants blood drawn today. Performed By: #### C MP #### [facility] [address] [place] [address] GFR >60.0 Normal >60 [facility] Comment on above: Order Comment: patiroseanne nt not have eaten but drank about 1/2 of mountain dew. Still wants blood drawn today. Result Comment: Pedi atric calculator link https://www.kidney.org/professionals/kdoqi/gfr_calculatorped Effective Dec 26, 2021 These results are not intended for use in patients <18 years of age. eGFR results are calculated without a race factor using the 2020 CKD-EPI equation. Careful clinical correlation is recommended, particularly when comparing to results calculated using previous equations. The CKD-EPI equation is less accurate in patients with extremes of muscle mass, extra-renal metabolism of creatinine, excessive creatinine ingestion, or following therapy that affects renal tubular secretion. Performed By: #### C MP #### [facility] [address] [place] [address] Globulin (S) [Mass/Vol] 3.0 g/dL Normal 2.3-3.5 [facility] Comment on above: Order Comment: patie nt not have eaten but drank about 1/2 of mountain dew. Still wants blood drawn today. Performed By: #### C MP #### [facility] [address] [place] [address] Glucose [Mass/Vol] 95 mg/dL Normal 70-99 [facility] Comment on above: Order Comment: patie nt not have eaten but drank about 1/2 of mountain dew. Still wants blood drawn today. Performed By: #### C MP #### [facility] [address] [place] [address] Potassium [Moles/Vol] 3.9 mmol/L Normal 3.4-4.9 [facility] Comment on above: Order Comment: patie nt not have eaten but drank about 1/2 of mountain dew. Still wants blood drawn today. Performed By: #### C MP #### [facility] [address] [place] [address] Protein [Mass/Vol] 7.3 g/dL Normal 6.3-8.0 [facility] Comment on above: Order Comment: patie nt not have eaten but drank about 1/2 of mountain dew. Still wants blood drawn today. Performed By: #### C MP #### [facility] [address] [place] [address] Sodium [Moles/Vol] 137 mmol/L Normal 135-144 [facility] Comment on above: Order Comment: patie nt not have eaten but drank about 1/2 of mountain dew. Still wants blood drawn today. Performed By: #### C MP #### [facility] [address] [place] [address] Urea nitrogen [Mass/Vol] 7 mg/dL Normal 6-20 [facility] Comment on above: Order Comment: miguelangel nt not have eaten but drank about 1/2 of mountain dew. Still wants blood drawn today. Performed By: #### C MP #### [facility] [address] [place] [address] Culture, Urineon 08-29-2022 Culture, Urine ORDER#: [id number] ORDERED BY: JEREMY RECIO SOURCE: Urine Clean Catch COLLECTED: 08/29/22 17:19 ANTIBIOTICS AT MARIA E.: RECEIVED : 08/29/22 17:45 Culture, Urine FINAL 08/30/22 21:30 Cult,Urine: NO GROWTH Performed at [address] [address] Normal [facility] Comment on above: Performed By: #### C XURN #### [facility] [address] [place] [address] Lipid Panel Fastingon 2022 Cholesterol [Mass/Vol] 180 mg/dL Normal 0-199 [facility] Comment on above: Order Comment: miguelangel nt not have eaten but drank about 1/2 of mountain dew. Still wants blood drawn today. Result Comment: ATP III Cholesterol classification is Desirable. Performed By: #### L IPDF #### [facility] [address] [place] [address] HDL Cholesterol Fasting 45 mg/dL Normal 40-59 [facility] Comment on above: Order Comment: patiroseanne nt not have eaten but drank about 1/2 of mountain dew. Still wants blood drawn today. Result Comment: ATP III HDL Cholesterol Classification is Desirable. Expected Values: Males: >55 = No Risk 35-55 = Moderate Risk <35 = High Risk Females: >65 = No Risk 45-65 = Moderate Risk <45 = High Risk NCEP Guidelines: Third Report July 2000 >59 = negative risk factor for CHD <40 = major risk factor for CHD Performed By: #### L IPDF #### [facility] [address] [place] [address] LDL Cholesterol (Calculated) Fasting 113 mg/dL Normal 0-129 [facility] Comment on above: Order Comment: miguelangel nt not have eaten but drank about 1/2 of mountain dew. Still wants blood drawn today. Result Comment: ATP III LDL Classification is Near Optimal. Performed By: #### L IPDF #### [facility] [address] [place] [address] Triglycerides Fasting 111 mg/dL Normal 0-150 [facility] Comment on above: Order Comment: patiroseanne nt not have eaten but drank about 1/2 of mountain dew. Still wants blood drawn today. Result Comment: ATP III Triglycerides Classification is Normal. Performed By: #### L IPDF #### [facility] [address] [facility] [address] COVID-19, Rapidon 01-25-2022 Interpretation and review of laboratory results Abnormal [facility] SARS-CoV-2 (COVID-19) RNA GABRIELE+probe Ql (Unsp spec) Detected Abnormal Not Detected [facility] Comment on above: Rapid NAAT: Negative results should be treated as presumptive and, if inconsistent with clinical signs and symptoms or necessary for patient management, should be tested with an alternative molecular assay. Negative results do not preclude SARS-CoV-2 infection and should not be used as the sole basis for patient management decisions. This test has been authorized by the FDA under an Emergency Use Authorization (EUA) for use by authorized laboratories. Fact sheet for Healthcare Providers: https://www.fda.gov/media/834521/download Fact sheet for Patients: https://www.fda.gov/media/134128/download METHODOLOGY: Isothermal Nucleic Acid Amplification [facility] Rapid Influenza A/B Antigens on 01-25-2022 Influenza A by PCR Negative [facility] Influenza B by PCR Negative [facility] POCT urine pregnancyOrdered By: Logan Forde on 08-23-2021 Interpretation and review of laboratory results Normal [facility] Preg Test, Ur Negative [facility] QC OK? ok [facility] Urinalysis with Reflex to Cu ltureon 08-23-2021 Bilirubin Urine Negative Negative [facility] Blood, Urine Negative Negative [facility] Clarity, UA Clear Clear [facility] Color, UA Yellow Straw/Yellow [facility] Glucose, Ur Negative Negative mg/dL [facility] Ketones Ql (U) Negative Negative mg/dL [facility] Leukocyte esterase Test strip Ql (U) Negative Negative [facility] Nitrite, Urine Negative Negative [facility] pH, UA 8.0 [facility] Protein, UA Negative Negative mg/dL [facility] Specific [place], UA 1.011 [facility] Urine Reflex to Culture Not Indicated [facility] Urobilinogen, Urine 0.2 <2.0 E.U./dL [facility] Covid-19 PCR (CVDTB)on 12-25 SARS-CoV-2 (COVID-19) RNA GABRIELE+probe Ql (Unsp spec) Not detected Normal NOT DETECTED [facility] Comment on above: Result Comment: When diagnostic testing is negative, the possibility of a false negative should be considered in the context of a patient's recent exposures and the presence of clinical signs and symptoms consistent with SARS-CoV-2. Performed By: #### [facility] #### [facility] [address] [address] [address] Mohamud Chi ECHOCARDIO M/2D COMPLETEon 0 07-29-2020 ECHOCARDIO M/2D COMPLETE Patient: ALIE EAGLE Exam Date: 07/29/2020 : 1995 Gender:F Ordering : [facility] Admission #: [id number] Family : Order #: [id number] CLICK HERE TO VIEW EXAM ECHOCARDIOGRAM REPORT PROCEDURE: CARDIO PULMONARY ECHOCARDIO M/2D COMP INDICATIONS: Near syncope COMPARISON: None. DESCRIPTION: COMPLETE ECHOCARDIOGRAM Real-time transthoracic echocardiography with 2D, M-mode, spectral and color flow Doppler performed. QUALITY: Technical quality was good. LEFT VENTRICLE: Normal chamber size. Normal left ventricular wall thickness. LV EF: Normal left ventricular ejection fraction, (>55%). DIASTOLIC: Normal diastolic function. ATRIAL SEPTUM: LEFT ATRIUM: Normal chamber size. RIGHT ATRIUM: Normal chamber size. RIGHT VENTRICLE: Normal chamber size. Normal systolic function. TRICUSPID VALVE: Normal mobility and thickness. No stenosis with trace regurgitation. MITRAL VALVE: Normal mobility and thickness. No mitral valve prolapse. No evidence of mitral valve stenosis. There is no mitral annular calcification. Trace mitral regurgitation. AORTIC VALVE: Normal trileaflet appearance. No visible sclerosis. Normal leaflet mobility. No evidence of aortic valve stenosis. Trace aortic regurgitation. AORTIC ROOT: Normal diameter and appearance. PULMONIC VALVE: Normal thickness and mobility. No stenosis. Trace regurgitation. PERICARDIUM: No evidence of pericardial effusion. IVC: Collapes with inspirations. IVC normal in size. PLEURA: CONCLUSION: 1. Normal ventricular and valvular function. 2. Normal right sided pressures. 3. No pericardial effusion. Adult Echocardiography Procedure Report Left Ventricle LVEDD (3.7 - 5.6 cm): 4.07 cm LVESD (2.2 - 4.0 cm): 2.68 cm LVIVS thickness (0.6 - 1.2 cm): 7.61 mm LVPW thickness (0.5 - 1.0 cm): 8.76 mm e': 17.40 cm/s E - e': 5.30 LVOT Area (cm2): 3.46 cm2 LVOT Diameter 2.10 cm Left Ventricular Ejection Fraction: 63.60 % Left Atrium LA Volume Index (2D A2C): 13.50 ml/m2 Left Atrium Systolic Dimension: 3.00 cm Left Atrium Systolic Area(A2C): 10.60 cm2 Left Atrium Systolic Area(A4C): 12.30 cm2 Left Atrium Systolic Volume(A2C): 62808 mm3 Left Atrium Systolic Volume(A4C): 81177 mm3 Mitral Valve MV E to A Ratio: 1.80 Mitral Valve A-Wave Peak Velocity: 49.90 cm/s Mitral Valve E-Wave Peak Velocity: 91.80 cm/s Deceleration Time: 230 ms Right Ventricle Aorta AO Root Diam: 2.70 cm Aortic Valve AoV Area (Peak Neto): 2.97 cm2 Peak Velocity(Antegrade Flow): 97.00 cm/s Peak Gradient(Antegrade Flow): 4 mm[Hg] Tricuspid Valve Pulmonic Valve Peak Velocity: 86.90 cm/s Peak Gradient: 3 mm[Hg] Right Atrium Dictated by: Harjit Cotton M.D. on 07/29/2020 at 17:16 Approved by: Harjit Cotton M.D. on 07/29/2020 at 17:17 Normal [facility] CULTURE URINEon 07-11-2020 CULTURE URINE Isolate 1 Escherichia coli >100,000 cfu/ml of ORGANISM 1 Escherichia coli ANTIBIOTIC M.I.C RX STATUS Ampicillin <=2 S F Ampicillin/Sulbactam <=2 S F Piperacillin/Tazobac sy <=4 S F Cefazolin <=4 S F Ceftazidime <=1 S F Ceftriaxone <=1 S F Ertapenem <=0.5 S F Imipenem <=0.25 S F Amikacin <=2 S F Gentamicin <=1 S F Tobramycin <=1 S F Ciprofloxacin <=0.25 S F Levofloxacin <=0.12 S F Nitrofurantoin <=16 S F Trimethoprim/Sulfame thoxazole <=20 S F Normal [facility] Comment on above: Performed By: #### U RCX #### [facility] [address] [place] [address] Sarmad Bria CBC AUTO DIFFon 07-09-2020 BASO # 0.1 103/ul Normal 0.0-0.1 [facility] Comment on above: Performed By: #### C BC #### [facility] [address] [place] [address] Sarmad Bria Basophils/100 WBC (Bld) 0.7 % Normal 0.2-2.0 [facility] Comment on above: Performed By: #### C BC #### [facility] [address] [place] [address] Sarmad Bria EO # 0.0 103/ul Normal 0.0-0.7 [facility] Comment on above: Performed By: #### C BC #### [facility] [address] [place] [address] Sarmad Bria Eosinophils/100 WBC (Bld) 0.2 % Critically low 0.9-7.0 [facility] Comment on above: Performed By: #### C BC #### [facility] [address] [place] [address] Sarmad Bria Erythrocyte distribution width (RBC) [Ratio] 13.0 % Normal 11.0-15.0 [facility] Comment on above: Performed By: #### C BC #### [facility] [address] [place] [address] Sarmad Bria Hematocrit (Bld) [Volume fraction] 36.4 % Normal 36.0-48.0 [facility] Comment on above: Performed By: #### C BC #### [facility] [address] [place] [address] Sarmad Bria Hemoglobin (Bld) [Mass/Vol] 11.5 g/dL Critically low 12.0-16.0 [facility] Comment on above: Performed By: #### C BC #### [facility] [address] [place] [address] Sarmad Bria IG # 0.01 10e3/ul Normal 0.00-0.03 [facility] Comment on above: Performed By: #### C BC #### [facility] [address] [place] [address] Sarmad Bria IG % 0.1 % Normal 0.0-0.5 [facility] Comment on above: Performed By: #### C BC #### [facility] [address] [place] [address] Sarmad Bria LYMPH # 3.1 103/ul Normal 1.2-3.8 [facility] Comment on above: Performed By: #### C BC #### [facility] [address] [place] [address] Sarmad Bria Lymphocytes/100 WBC (Bld) 37.6 % Normal 20.5-60.0 [facility] Comment on above: Performed By: #### C BC #### [facility] [address] [place] [address] Sarmad Bria MANUAL DIFF REQ NO Normal [facility] Comment on above: Performed By: #### C BC #### [facility] [address] [place] [address] Sarmad Fraser MCH (RBC) [Entitic mass] 25.7 pg Critically low 26.7-34.0 [facility] Comment on above: Performed By: #### C BC #### [facility] [address] [id number] Sarmad Fraser MCHC (RBC) [Mass/Vol] 31.6 g/dL Normal 29.9-35.2 [facility] Comment on above: Performed By: #### C BC #### [facility] [address] [address] Sarmad Fraser MCV (RBC) [Entitic vol] 81.4 fL Normal 81.0-99.0 [facility] Comment on above: Performed By: #### C BC #### [facility] [address] [address] Sarmad Fraser MONO # 0.5 103/ul Normal 0.3-0.8 [facility] Comment on above: Performed By: #### C BC #### [facility] [address] [id number] Sarmad Fraser Monocytes/100 WBC (Bld) 5.6 % Normal 1.7-12.0 [facility] Comment on above: Performed By: #### C BC #### [facility] [address] [address] Sarmad Fraser NEUT # 4.6 103/ul Normal 1.4-6.5 [facility] Comment on above: Performed By: #### C BC #### [facility] [address] [id number] Sarmad Fraser Neutrophils/100 WBC (Bld) 55.8 % Normal 43.0-75.0 [facility] Comment on above: Performed By: #### C BC #### [facility] [address] [id number] Sarmadwilliam Fraser Platelet mean volume (Bld) [Entitic vol] 11.7 fL Normal 9.5-13.5 [facility] Comment on above: Performed By: #### C BC #### [facility] [address] [id number] Sarmad Fraser PLT 255 103/ul Normal 150-450 [facility] Comment on above: Performed By: #### C BC #### [facility] [address] [place] [address] Sarmad Fraser RBC 4.47 106/ul Normal 4.20-5.40 [facility] Comment on above: Performed By: #### C BC #### [facility] [address] [place] [address] Sarmad Taoen WBC 8.2 103/ul Normal 4.0-11.0 [facility] Comment on above: Performed By: #### C BC #### [facility] [address] [place] [address] Sarmad Fraser ER URINE PROFILEon 1 Bilirubin Ql (U) Negative Normal NEGATIVE [facility] Comment on above: Performed By: #### U MICRO, ERUR #### [facility] [address] [place] [address] Sarmad Bria Clarity (U) CLEAR Normal CLEAR [facility] Comment on above: Performed By: #### U MICRO, ERUR #### [facility] [address] [place] [address] Sarmad Bria Color (U) LT. YELLOW Normal YELLOW [facility] Comment on above: Performed By: #### U MICRO, ERUR #### [facility] [address] [place] [address] Sarmad Fraser ERUAHD A micrscopic examination will be performed if indicated. Normal [facility] Comment on above: Performed By: #### U MICRO, ERUR #### [facility] [address] [place] [address] Sarmad Bria Glucose Ql (U) Negative Normal NEGATIVE [facility] Comment on above: Performed By: #### U MICRO, ERUR #### [facility] [address] [place] [address] Sarmad Bria Hemoglobin Ql (U) SMALL Abnormal NEGATIVE [facility] Comment on above: Performed By: #### U MICRO, ERUR #### [facility] [address] [place] [address] Sarmad Bria Ketones Ql (U) 15 mg/dl Abnormal NEGATIVE [facility] Comment on above: Performed By: #### U MICRO, ERUR #### [facility] [address] [place] [address] Sarmad Bria LEUKOCYTES Negative Normal NEGATIVE [facility] Comment on above: Performed By: #### U MICRO, ERUR #### [facility] [address] [place] [address] Sarmad Bria Nitrite Ql (U) Positive Abnormal NEGATIVE [facility] Comment on above: Performed By: #### U MICRO, ERUR #### [facility] [address] [place] [address] Sarmad Bria pH (U) 6.0 [pH] Normal 5-9 [facility] Comment on above: Performed By: #### U MICRO, ERUR #### [facility] [address] [place] [address] Sarmad Taoen SPEC GRAVITY 1.025 Normal 1.005-<=1.025 [facility] Comment on above: Performed By: #### U MICRO, ERUR #### [facility] [address] [place] [address] Sarmad Bria UA PROTEIN Negative Normal NEGATIVE/ TRACE [facility] Comment on above: Performed By: #### U MICRO, ERUR #### [facility] [address] [place] [address] Sarmad Taoen UR MICRO IND INDICATED Normal [facility] Comment on above: Performed By: #### U MICRO, ERUR #### [facility] [address] [place] [address] Sarmadwilliam Fraser Urobilinogen Qn (U) 0.2 {Melanie'U}/dL Normal 0.2 - 1. 0 [facility] Comment on above: Performed By: #### U MICRO, ERUR #### [facility] [address] [place] [address] Sarmadwilliam Fraser URon 07-09-2020 , QUAL Negative Normal NEGATIVE [facility] Comment on above: Performed By: #### P REGU #### [facility] [address] [place], [place] [id number] Sarmad Bria PROF 14(COMP METB)on 021 Albumin [Mass/Vol] 4.4 g/dL Normal 3.5-5.0 [facility] Comment on above: Performed By: #### C MP #### [facility] [address] [place], [place] [id number] Sarmad Bria Albumin/Globulin [Mass ratio] 1.3 {ratio} Normal [facility] Comment on above: Performed By: #### C MP #### [facility] [address] [place], [place] [id number] Sarmad Bria ALP [Catalytic activity/Vol] 48 U/L Normal 38-126 [facility] Comment on above: Performed By: #### C MP #### [facility] [address] [place] [address] Sarmad Bria ALT [Catalytic activity/Vol] 21 U/L Normal 9-52 [facility] Comment on above: Performed By: #### C MP #### [facility] [address] [place], [place] [id number] Sarmad Bria Anion gap [Moles/Vol] 16.1 mmol/L Normal [facility] Comment on above: Performed By: #### C MP #### [facility] [address] [place] [address] Sarmad Bria AST [Catalytic activity/Vol] 19 U/L Normal 14-36 [facility] Comment on above: Performed By: #### C MP #### [facility] [address] [place], [place] [id number] Sarmad Bria Bilirubin [Mass/Vol] 0.3 mg/dL Normal 0.2-1.3 [facility] Comment on above: Performed By: #### C MP #### [facility] [address] [place], [place] [id number] Sarmad Bria Calcium [Mass/Vol] 9.1 mg/dL Normal 8.4-10.2 [facility] Comment on above: Performed By: #### C MP #### [facility] [facility] [address] [address] Sarmad Bria Chloride [Moles/Vol] 105 mmol/L Normal 98-107 [facility] Comment on above: Performed By: #### C MP #### [facility] [address] [id number] Sarmad Bria CO2 [Moles/Vol] 24.4 mmol/L Normal 22.0-30.0 [facility] Comment on above: Performed By: #### C MP #### [facility] [address] [place] [address] Sarmad Bria Creatinine [Mass/Vol] 0.93 mg/dL Normal 0.52-1.04 [facility] Comment on above: Performed By: #### C MP #### [facility] [address] [place] [address] Sarmad Bria EGFR-AF INDONESIAN >60 Normal >=60 [facility] Comment on above: Performed By: #### C MP #### [facility] [address] [place] [address] Sarmad Bria EGFR-NON AF INDONESIAN >60 Normal >=60 [facility] Comment on above: Performed By: #### C MP #### [facility] [address] [place], [place] [id number] Sarmad Bria Globulin (S) [Mass/Vol] 3.4 g/dL Normal [facility] Comment on above: Performed By: #### C MP #### [facility] [address] [place] [address] Sarmad Bria Glucose [Mass/Vol] 91 mg/dL Normal 74-106 [facility] Comment on above: Performed By: #### C MP #### [facility] [address] [place], [place] [id number] Sarmad Bria Potassium [Moles/Vol] 3.5 mmol/L Normal 3.4-5.0 [facility] Comment on above: Performed By: #### C MP #### [facility] [address] [place] [address] Sarmad Bria Protein [Mass/Vol] 7.8 g/dL Normal 6.1-8.2 [facility] Comment on above: Performed By: #### C MP #### [facility] [address] [id number] Sarmad Bria Sodium [Moles/Vol] 142 mmol/L Normal 137-145 [facility] Comment on above: Performed By: #### C MP #### [facility] [address] [address] Sarmad Bria Urea nitrogen [Mass/Vol] 8.0 mg/dL Normal 7.0-17.0 [facility] Comment on above: Performed By: #### C MP #### [facility] [address] [place] [address] Sarmad Bria Urea nitrogen/Creatinine [Mass ratio] 8.6 mg/mg Normal [facility] Comment on above: Performed By: #### C MP #### [facility] [address] [place] [address] Sarmda Bria URINE MICROSCOPIC ONLYon BACTERIA LARGE Abnormal NONE SEEN [facility] Comment on above: Performed By: #### U MICRO, ERUR #### [facility] [address] [place] [address] Sarmad Bria Bacteria identified Cx Nom (U) INDICATED Normal [facility] Comment on above: Performed By: #### U MICRO, ERUR #### [facility] [address] [place], [place] [id number] Sarmad Bria CAST NONE SEEN Normal NONE SEEN [facility] Comment on above: Performed By: #### U MICRO, ERUR #### [facility] [address] [place] [address] Sarmad Bria Crystals LM Nom (Urine sed) NONE SEEN Normal NONE SEEN [facility] Comment on above: Performed By: #### U MICRO, ERUR #### [facility] [address] [place], [place] [id number] Sarmad Bria Epithelial cells LM Ql (Urine sed) RARE Normal NONE SEEN /RARE [facility] Comment on above: Performed By: #### U MICRO, ERUR #### [facility] [address] [place] [address] Sarmad Bria MUCOUS NONE SEEN Normal NONE SEEN [facility] Comment on above: Performed By: #### U MICRO, ERUR #### [facility] [address] [place], [place] [address] Sarmad Bria RBC NONE SEEN Abnormal 0-2 [facility] Comment on above: Performed By: #### U MICRO, ERUR #### [facility] [address] [place], [place] [address] Sarmadwilliam Taoen WBC 0-2 Abnormal NONE SEEN [facility] Comment on above: Performed By: #### U MICRO, ERUR #### [facility] [address] [place], [place] [address] Sarmadwilliam Taoen XR FOOT RT MIN 3 VIEWSon XR FOOT RT MIN 3 VIEWS EXAM: XR FOOT RT MIN 3 VIEWS HISTORY: The patient is a 24-year-old female with right foot pain after falling down stairs last night. COMPARISON: None. FINDINGS: The right foot is radiographically negative with no evidence of fracture, dislocation, joint space narrowing, erosions, osteophytes, or other osseous or articular abnormalities. IMPRESSION: Negative. Electronically authenticated by: WILLIAM SHETH Date: 2020-04-07 19:46 Normal [facility] Vital Signs Date Time Vital Sign Value Performing Clinician Facility 05-18-2024 08:20-0500 Body temperature 97.81 [degF] Isabella Pool DESIGN ENG - CN Work Phone: [facility] 05-18-2024 08:20-0500 Diastolic blood pressure 58 mm[facility]Hg[facility] 05-18-2024 08:20-0500 Heart rate 75 /min [facility] DESIGN ENG - CN Work Phone: [facility] 05-18-2024 08:20-0500 Respiratory rate 18 /min Isabella Pool DESIGN ENG - CN Work Phone: [facility] 05-18-2024 08:20-0500 SaO2% (BldA) [Mass fraction] 98 % Isabella Pool DESIGN ENG - CN Work Phone: [facility] [employer] 05-18-2024 08:20-0500 Systolic blood pressure 112 mm[Hg] [facility] Work Phone: [facility] [employer] 05-16-2024 10:36-0500 Body height 163.8 cm [facility] Work Phone: [facility] [employer] 05-16-2024 10:36-0500 Body mass index (BMI) [Ratio] 30.76 kg/m2 [facility] Work Phone: [facility] [employer] 05-16-2024 10:36-0500 Body weight 82.56 kg [facility] Work Phone: [facility] [employer] 04-20-2024 15:04-0500 SaO2% (BldA) [Mass fraction] 98 % Tarik D'Abreau DO Work Phone: [employer] 04-20-2024 14:58-0500 Body height 162.6 cm Tarik D'Abreau DO Work Phone: [employer] 04-20-2024 14:58-0500 Body mass index (BMI) [Ratio] 31.07 kg/m2 Tarik D'Abreau DO Work Phone: [employer] 04-20-2024 14:58-0500 Body temperature 97.7 [degF] Tarik D'Abreau DO Work Phone: [employer] 04-20-2024 14:58-0500 Body weight 82.1 kg Tarik D'Abreau DO Work Phone: [employer] 04-20-2024 14:58-0500 Diastolic blood pressure 72 mm[Hg] Tarik D'Abreau DO Work Phone: [employer] 04-20-2024 14:58-0500 Heart rate 105 /min Tarik D'Abreau DO Work Phone: [facility] 04-20-2024 14:58-0500 Respiratory rate 18 /min Tarik Aldrichu DO Work Phone: [facility] 04-20-2024 14:58-0500 Systolic blood pressure 115 mm[Hg] Tarik Aldrichu DO Work Phone: [facility] 06-21-2023 19:42-0400 Body height 165.1 cm PHYSICIAN NO [facility] 06-21-2023 19:42-0400 Body temperature 97.7 [degF] PHYSICIAN NO [facility] 06-21-2023 19:42-0400 Body weight 85.1 kg PHYSICIAN NO [facility] 06-21-2023 19:42-0400 Diastolic blood pressure 81 mm[Hg] PHYSICIAN NO [facility] 06-21-2023 19:42-0400 Heart rate 78 /min PHYSICIAN NO [facility] 06-21-2023 19:42-0400 Respiratory rate 16 /min PHYSICIAN NO [facility] 06-21-2023 19:42-0400 SaO2% (BldA) [Mass fraction] 99 % PHYSICIAN NO [facility] 06-21-2023 19:42-0400 Systolic blood pressure 122 mm[Hg] PHYSICIAN NO [facility] 05-30-2023 15:48-0500 Body height 162.56 cm PHYSICIAN NO [facility] 05-30-2023 15:48-0500 Body mass index (BMI) [Ratio] 32.1 kg/m2 PHYSICIAN NO [facility] 05-30-2023 15:48-0500 Body temperature 98.4 [degF] PHYSICIAN NO [facility] 05-30-2023 15:48-0500 Body weight 84.82 kg PHYSICIAN NO [facility] 05-30-2023 15:48-0500 Diastolic blood pressure 69 mm[Hg] PHYSICIAN NO [facility] 05-30-2023 15:48-0500 Heart rate 74 /min PHYSICIAN NO [facility] 05-30-2023 15:48-0500 SaO2% (BldA) [Mass fraction] 99 % PHYSICIAN NO [facility] 05-30-2023 15:48-0500 Systolic blood pressure 99 mm[Hg] PHYSICIAN NO [facility] 05-06-2023 00:17-0500 Body height 162.56 cm PHYSICIAN NO [facility] 05-06-2023 00:17-0500 Body temperature 98.1 [degF] PHYSICIAN NO [facility] 05-06-2023 00:17-0500 Body weight 89.75 kg PHYSICIAN NO [facility] 05-06-2023 00:17-0500 Diastolic blood pressure 73 mm[Hg] PHYSICIAN NO [facility] 05-06-2023 00:17-0500 Heart rate 95 /min PHYSICIAN NO [facility] 05-06-2023 00:17-0500 Respiratory rate 18 /min PHYSICIAN NO [facility] 05-06-2023 00:17-0500 SaO2% (BldA) [Mass fraction] 96 % PHYSICIAN NO [facility] 05-06-2023 00:17-0500 Systolic blood pressure 126 mm[Hg] PHYSICIAN NO [facility] 01-25-2022 20:07-0400 Body temperature 99 [degF] Rosita Alex MD Work Phone: [facility] 01-25-2022 20:07-0400 Diastolic blood pressure 71 mm[Hg] Rosita Alex MD Work Phone: [facility] 01-25-2022 20:07-0400 Heart rate 113 /min Rosita Alex MD Work Phone: [facility] 01-25-2022 20:07-0400 Respiratory rate 18 /min Rosita Alex MD Work Phone: [facility] 01-25-2022 20:07-0400 SaO2% (BldA) [Mass fraction] 97 % Rosita Alex MD Work Phone: [facility] [employer] 01-25-2022 20:07-0400 Systolic blood pressure 117 mm[Hg] [facility] 01-25-2022 18:30-0400 Body height 162.6 cm [facility] 01-25-2022 18:30-0400 Body mass index (BMI) [Ratio] 22.31 kg/m2 Rosita Alex MD Work Phone: [facility] [employer] 01-25-2022 18:30-0400 Body weight 58.97 kg Rosita Alex MD [facility] 08-23-2021 16:11-0400 Diastolic blood pressure 71 mm[Hg] Dmitri Doty MD [facility] 08-23-2021 16:11-0400 Heart rate 67 /min [facility]mit[facility]y MD [facility] [employer] 08-23-2021 16:11-0400 Respiratory rate 16 /min Dmitri Doty MD [facility] 08-23-2021 16:11-0400 SaO2% (BldA) [Mass fraction] 98 % Dmitri Doty MD [facility] 08-23-2021 16:11-0400 Systolic blood pressure 115 mm[Hg] Dmitri Doty MD [facility] [employer] 08-23-2021 15:28-0400 Body height 162.6 cm Dmitri Doty MD Work Phone: [facility] [employer] 08-23-2021 15:28-0400 Body mass index (BMI) [Ratio] 20.08 kg/m2 Dmitri Doty MD [facility] 08-23-2021 15:28-0400 Body temperature 97.9 [degF] Dmitri Doty MD Work Phone: [facility] 08-23-2021 15:28-0400 Body weight 53.07 kg Dmitri Doty MD Work Phone: [facility] [employer] 06-02-2021 18:25-0500 Body height 163.83 cm Daksha [place] Other [employer] Other 06-02-2021 18:25-0500 Body mass index (BMI) [Ratio] 19.77 kg/m2 Daksha Lisset Other [employer] Other 06-02-2021 18:25-0500 Body temperature 98.8 [degF] Daksha Lisset Other [employer] Other 06-02-2021 18:25-0500 Body weight 53.07 kg Daksha Lisset Other [employer] Other 06-02-2021 18:25-0500 Diastolic blood pressure 79 mm[Hg] Daksha Lisset Other [employer] Other 06-02-2021 18:25-0500 Respiratory rate 18 /min Daksha Lisset Other [employer] Other 06-02-2021 18:25-0500 SaO2% (BldA) [Mass fraction] 99 % Daksha Lisset Other [employer] Other 06-02-2021 18:25-0500 Systolic blood pressure 118 mm[Hg] Daksha Darling Other [employer] Other Encounters Encounter Date Encounter Type Care Provider Facility Start: 05-16-2024 End: 05-18-2024 Evaluation and management of inpatient Isabella Monique DESIGN ENG - CNM Work Phone: [facility] Labor and Delivery Start: 05-16-2024 Emergency department patient visit NONE LUDA [facility] Start: 05-07-2024 End: 05-07-2024 ambulatory [facility] Start: 05-07-2024 End: 05-07-2024 Subsequent hospital visit by physician Luda None [facility] Comment on above: Vagina itching; Screen for STD (sexually transmitted disease); 36 weeks gestation of ; Allergy to amoxicillin Start: 04-20-2024 End: 04-20-2024 ambulatory TARIKPOLO ALDRICHAnila [facility] Start: 04-20-2024 End: 04-20-2024 Subsequent hospital visit by physician Tarik Garrett DO Work Phone: [facility] Labor and Delivery Start: 04-18-2024 End: 04-19-2024 Evaluation and management of inpatient JERSON DIAZ [facility] Start: 02-10-2024 End: 02-11-2024 ambulatory [facility] Start: 11-21-2023 End: 11-21-2023 ambulatory [facility] Start: 10-24-2023 End: 10-24-2023 ambulatory [facility] Start: 10-24-2023 End: 10-24-2023 Subsequent hospital visit by physician [facility] Comment on above: Encounter for superv ision of other normal in first trimester; Amenorrhea; Positive urine test Start: 10-24-2023 End: 10-24-2023 ambulatory [facility] Start: 06-21-2023 End: 06-21-2023 Emergency department patient visit Kamar Kraus Facility:[facility] Start: 06-21-2023 End: 06-21-2023 Emergency department patient visit PHYSICIAN NO [facility] Work Phone: Start: 06-19-2023 End: 06-19-[address] [facility] Facility:[facility] Start: 06-19-2023 End: 06-19-2023 ambulatory PHYSICIAN NO [facility] Work Phone: Start: 06-19-2023 End: 06-19-2023 Patient encounter procedure PHYSICIAN NO [facility] [place] Work Phone: Start: 05-30-2023 End: 05-30-2023 Patient encounter procedure PHYSICIAN NO [facility] Work Phone: Start: 05-06-2023 End: 05-06-2023 Emergency department patient visit PHYSICIAN NO [facility] Facility:[facility] Start: 05-06-2023 End: 05-06-2023 Emergency department patient visit PHYSICIAN NO [facility] Work Phone: Start: 03-02-2023 End: 03-02-2023 Emergency department patient visit ROSITA ALEX [facility] Start: 01-25-2022 End: 01-25-2022 Emergency department patient visit Rosita Alex MD Work Phone: [facility] ED Comment on above: Lab test positive fo r detection of COVID-19 virus (Primary Dx) Start: 08-23-2021 End: 08-23-2021 Emergency department patient visit Dmitri Doty MD Work Phone: [facility] ED Comment on above: Lower abdominal pain (Primary Dx) Start: 06-02-2021 End: 06-02-2021 ambulatory Daksha Darling Other [employer] Other Start: 06-02-2021 Office outpatient vi sit 15 minutes Daksha Darling [facility] Start: 01-17-2021 End: 01-17-2021 ambulatory YURY KARISHMA Facility: Start: 10-12-2020 End: 10-12-2020 ambulatory YURY SCHWARZ Facility:[facility] Start: 08-03-2020 ambulatory YURY SCHWARZ Facility:[facility] Start: 07-29-2020 End: 07-30-2020 ambulatory YURY SCHWARZ Facility:[facility] Start: 07-09-2020 End: 07-09-[address] VERÓNICA MANUEL Facility:[facility] Start: 04-07-2020 End: 04-07-[address] ENEDINA BILL Facility:[facility] Procedures Date Procedure Procedure Detail Performing Clinician Start: 05-16-2024 Blood typing serologic abo Isabella Monique DESIGN ENG - CNM Work Phone: Start: 05-16-2024 Comprehensive metabo lic panel Isabella Antoine Pool DESIGN ENG - CN Work Phone: Start: 05-16-2024 Drug tst prsmv instr mnt chem analyzers pr date Isabella Monique DESIGN ENG - CNM Work Phone: Start: 05-16-2024 Protein total xcpt refractometry urine Isabella Antoine Pool DESIGN ENG - CN Work Phone: Start: 05-16-2024 Urnls dip stick/tabl et rgnt auto w/o microscopy Isabella Antoine Pool DESIGN ENG - CNM Work Phone: Start: 05-07-2024 End: 05-07-2024 Iadna kimmy species direct probe tq Isabella Antoine Pool DESIGN ENG - CNM Work Phone: Start: 11-21-2023 Microscopic observat ion [Identifier] in Cervix by Cyto stain Tarik Garrett DO Work Phone: Start: 06-19-2023 X-ray of cervical spine PHYSICIAN NO FAMILY Start: 06-19-2023 Plain X-ray of left shoulder PHYSICIAN NO FAMILY Start: 05-30-2023 Quick Strep (POC) PHYSI DAGO NO FAMILY Start: 01-25-2022 COVID-19, RAPID Ade Don DESIGN ENG - LOG HOOKER Work Phone: Start: 01-25-2022 Iaadiadoo influenza Erin Don DESIGN ENG - LOG HOOKER Work Phone: Start: 08-23-2021 End: 08-23-2021 Urine test visual color cmprsn meths Dmitri Doty MD Work Phone: Start: 07-28-2021 Microscopic observat ion [Identifier] in Cervix by Cyto stain Dmitri Doty MD Work Phone: Plan of Treatment Date Care Activity Detail Author Start: 05-18-2034 DTaP/Tdap/Td vaccine (2 - Td or Tdap) DTaP/Tdap/Td vaccine (2 - Td or Tdap) [facility] Start: 11-20-2026 Screening for malign ant neoplasm of cervix Pap smear [facility] Start: 05-07-2025 Depression Monitoring Depression Mon [facility] Start: 11-20-2024 Depression Monitoring Depression [facility] Start: 07-28-2024 Screening for malign ant neoplasm of cervix Pap smear [facility] Start: 06-23-2024 Tdap Vaccine during Tdap Vaccine during [facility] Comment on above: Postponed from 03/03 (Patient Refused) Start: 06-03-2024 End: 06-03-2024 Patient encounter procedure 06/03/2024 11:00 AM EDT Routine [facility] [address] [place] [address] Isabella Monique APRN - MICHELLE [address] [place] [address] Dr [address] [place] [address] 40wk OB -- NST [facility] Comment on above: 40wk OB -- NST Start: 05-27-2024 End: 05-27-2024 Patient encounter procedure 05/27/2024 10:30 AM EST Routine [facility] [address] [place] [address] Isabella Monique DESIGN ENG - CNM [address] [place] [address] [address] [place], [place] [id number] 39wk OB [facility] Part [facility] Comment on above: 39wk OB Start: 05-20-2024 End: 05-20-2024 Patient encounter procedure 05/20/2024 10:10 AM EST Routine [facility] Part of [address] [place] [address] Isabella Monique APRN - CNTej [address] [place] [address] [address] [place] [address] 38wk OB [facility] Comment on above: 38wk OB Start: 05-13-2024 End: 05-13-2024 Patient encounter procedure 05/13/2024 10:30 AM EST Routine [facility] Part of [address] [place] [address] Isabella Monique, DESIGN ENG - MICHELLE [address] [place] [address] [address] [place] [address] 37wk OB [facility] Comment on above: 37wk OB Start: 05-06-2024 End: 05-06-2024 Patient encounter procedure 05/06/2024 9:30 AM EST Routine [facility] Part of [address] [place] [address] Isabella Monique, DESIGN ENG - CNTej [address] [place] [address] [address] [place] [address] 36wk OB --- GBS / us position [facility] Comment on above: 36wk OB --- GBS / us position Start: 05-06-2024 End: 05-06-2024 Professional / ancillary services management 05/06/2024 9:00 AM EST Ancillary Procedure [facility] Part of [address] [place] [address] 36wk OB GBS -- us position [facility] Comment on above: 36wk OB GBS -- us po sition Start: 04-21-2024 End: 04-21-2024 Patient encounter procedure 04/21/2024 11:20 AM EST Routine [facility] Part of [address] [place] [address] Isabella Monique, DESIGN ENG - CN[address] [place] [address] 34wk OB -- *NA (04.17) [facility] Comment on above: 34wk OB -- *NA (03.27 3) Start: 04-07-2024 Respiratory Syncytia l Virus (RSV) or age 60 yrs+ (1 - Risk 1-dose series) Respiratory Syncytial Virus (RSV) or age 60 yrs+ (1 - Risk 1-dose series) [facility] Start: 03-24-2024 End: 03-24-2024 Patient encounter procedure 03/24/2024 10:00 AM EST Routine [facility] Part of [address] [place] [address] Isabella Monique, DESIGN ENG - CN[address] [place] [address] ob / 30 week / tdap [facility] Comment on above: ob / 30 week / tdap Start: 03-24-2024 End: 03-24-2024 Professional / ancillary services management 03/24/2024 9:30 AM EST Ancillary Procedure [facility] Part of [address] [place] [address] ob / 30 week [facility] Comment on above: ob / 30 week Start: 01-15-2024 End: 01-15-2024 Patient encounter procedure 01/15/2024 3:00 PM EDT Routine [facility] [address] [place] [address] Isabella Monique APRN - CNTej [address] [place] [address] Dr [address] [place] [address] ob / 20 week [facility] Comment on above: ob / 20 week Start: 01-15-2024 End: 01-15-2024 Professional / ancillary services management 01/15/2024 2:00 PM EDT Ancillary Procedure [facility] [address] [place] [address] ob / 20 week [facility] Comment on above: ob / 20 week Start: 11-25-2023 COVID-19 Vaccine ( season) COVID-19 Vaccine ( season) [facility] Start: 11-25-2023 COVID-19 Vaccine ( season) COVID-19 Vaccine ( season) [facility] Start: 11-21-2023 End: 11-21-2023 Patient encounter procedure 11/21/2023 10:40 AM EDT Routine [facility] [address] [place] [address] Isabella Monique, DESIGN ENG - CNTej [address] [place] [address] Dr [address] [place] [address] ob [facility] Comment on above: ob Start: 10-25-2023 Influenza vaccination Flu vaccine (# 1) [facility] Start: 08-30-2023 Depression Monitoring Depression Mon itoring [facility] Start: 06-21-2023 [facility] Start: 06-21-2023 Bacteria identified in Urine by Culture [facility] Start: 07-28-2022 Screening for Chlamy rachel trachomatis [facility] Start: 07-22-2022 Depression Monitoring Depression Mon [facility]oring [facility] Start: 11-24-2021 Influenza vaccination Flu vacc ine (Season Ended) [facility] Start: 10-24-2021 Influenza vaccination Flu vaccine (# 1) [facility] Start: 2016 DTaP/Tdap/Td vaccine (1 - Tdap) DTaP/Tdap/Td vaccine (1 - Tdap) [facility] Start: 2016 Hepatitis B vaccine (1 of 3 - 19+ 3-dose series) Hepatitis B vaccine (1 of 3 - 19+ 3-dose series) [facility] Start: 2016 Pneumococcal 0-49 ye ars Vaccine (1 of 2 - PCV) Pneumococcal 0-49 years Vaccine (1 of 2 - PCV) [facility] Start: 2012 HPV vaccine (1 - 3-d ose series) HPV vaccine (1 - 3-dose series) [facility] Start: 2010 Varicella vaccine (1 of 2 - 13+ 2-dose series) Varicella vaccine (1 of 2 - 13+ 2-dose series) [facility] Start: 2008 HPV vaccine (1 - 2-d ose series) HPV vaccine (1 - 2-dose series) [facility] Start: 08-26-2003 Pneumococcal 0-64 ye ars Vaccine (1 - PCV) Pneumococcal 0-64 years Vaccine (1 - PCV) [facility] Start: 2002 COVID-19 Vaccine (1) COVID-19 Vaccin e (1) [facility] Start: 1998 Varicella vaccine (1 of 2 - 2-dose childhood series) Varicella vaccine (1 of 2 - 2-dose childhood series) [facility] Start: 02-24-1998 COVID-19 Vaccine (#1) COVID-19 Vacci ne (#1) [facility] Start: 1997 Hepatitis B vaccine (1 of 3 - 3-dose series) Hepatitis B vaccine (1 of 3 - 3-dose series) [facility] Albumin/Globulin ratio [facility] Anion gap measurement [facility] Basophils [#/volume] in Blood by Automated count [facility] Basophils/100 leukocytes in Blood by Automated count [facility] C.trachomatis N.gonorrhoeae DNA C.trachomatis N.gonorrhoeae DNA Microbiology Routine Vagina itching Screen for STD (sexually transmitted disease) 05/07/2024 2:38 PM EST [employer] End: 10-24-2023 C.trachomatis N.gonorrhoeae DNA, Urine [employer] Work Phone: Comment on above: 1 Occurrences starti ng 10/24/2023 until 10/24/2023 End: 05-07-2024 Culture, Strep B Screen, Vaginal/Rectal [employer] Work Phone: Comment on above: 1 Occurrences starti ng 05/07/2024 until 05/07/2024 End: 10-24-2023 Culture, Urine [employer] Comment on above: 1 Occurrences starti ng 10/24/2023 until 10/24/2023 Eosinophils/100 leukocytes in Blood by Automated count [facility] Erythrocyte distribution width [Ratio] by Automated count [facility] Erythrocytes [#/volu me] in Blood [facility] nonstress test nonst ress test OB Routine Daily until discontinued starting 04/21/2024 [employer] Work Phone: Comment on above: Daily until disconti nued starting 04/21/2024 Globulin [Mass/volum e] in Serum [facility] Hematocrit [Volume Fraction] of Blood [facility] Hemoglobin [Mass/volume] in Blood [facility] Leukocytes [#/volume ] corrected for nucleated erythrocytes in Blood by Automated coun [facility] Leukocytes [#/volume ] in Blood [facility] Lymphocytes [#/volum e] in Blood by Automated count [facility] Lymphocytes/100 leukocytes in Blood by Automated count [facility] MCH [Entitic mass] b y Automated count [facility] MCHC [Mass/volume] b y Automated count [facility] MCV [Entitic volume] by Automated count [facility] Monocytes [#/volume] in Blood by Automated count [facility] Monocytes/100 leukocytes in Blood by Automated count [facility] Neutrophils [#/volum e] in Blood by Automated count [facility] Neutrophils/100 leukocytes in Blood by Automated count [facility] Nucleated erythrocyt es [Presence] in Blood by Automated count [facility] Patient Education Sinusitis in adults [facility] Work Phone: Patient referral [facility] Work Phone: Platelet mean volume [Entitic volume] in Blood by Automated count [facility] Platelets [#/volume] in Blood [facility] End: 04-20-2024 SVE SVE Point of Care Testing Routine One Time for 1 Occurrences starting 04/20/2024 until 04/20/2024 [facility] [employer] [facility] [employer] Comment on above: One Time for 1 Occur rences starting 04/20/2024 until 04/20/2024 Immunizations Immunization Date Immunization Notes Care Provider Fa cility 05-18-2024 tetanus toxoid, redu eva diphtheria toxoid, and acellular pertussis vaccine, adsorbed Isabella Pool DESIGN ENG - [facility] Work Phone: [facility] [employer] 05-16-2024 measles, mumps and rubella virus vaccine Isabella Pool DESIGN ENG - CNM Work Phone: [facility] [employer] Payers Date Payer Category Payer Self-pay [id number] 2022 Private Health Insurance 2021 Private Health Insurance [id number] 1997 Unknown [id number] 2.16.84 [id number] 1997 Unknown [id number] 2.16.84 [id number] 1997 Unknown [id number] 2.16.84 [id number] 1997 Unknown [id number] 2.16.84 [id number] 1997 Unknown [id number] 2.16.84 [id number] 1997 Unknown [id number] 2.16.84 0.1.998717.3.579.2.593 1997 Unknown [id number] 2.16.8 40.1.132063.3.579.2.182 1997 Unknown [id number] 2.16.8 40.1.085222.3.579.2.1286 1997 Unknown [id number] 2.16. [id number] 1997 Unknown [id number] 2.16.8 [id number] 1997 Unknown [id number] 2.16.8 40.1.528080.3.579.2.173 1997 Unknown [id number] 2.16.8 40.1.263654.3.579.2.173 1997 Unknown [id number] 2.16.8 [id number] 1997 Unknown [id number] 2.16.8 [id number] 1997 Unknown [id number] 2.16.8 [id number] 1959 Self-pay [id number] 1959 Unknown [id number] 1959 Unknown [id number] Unknown [id number] 2.16.8 [id number] Unknown [id number] 2.16.8 40.1.729150.3.579.2.531 Unknown [id number] 2.16.8 [id number] Social History Date Type Detail Facility Start: 07-22-2021 End: 05-16-2024 Tobacco smoking status [facility] Smokes tobacco daily [employer] Other Start: 08-27-2023 End: 03-26-2013 History of tobacco use Cigarette Smoker [employer] Phone: Start: 07-22-2021 End: 05-16-2024 Cigarettes smoked current (pack per day) - Reported 1 [employer] Start: 07-22-2021 End: 05-16-2024 Tobacco use and exposure Smokeless tobacco non-user [employer] Work Phone: Start: 08-23-2021 End: 05-17-2024 Alcohol intake Ex-drinker (finding) [employer] Phone: Start: 07-22-2021 History SDOH Financial 3 [employer] Phone: Start: 07-22-2021 History SDOH Food Worry 1 [employer] Phone: Start: 1997 Sex Assigned At Not on file B ON [employer] Phone: Start: 08-13-2021 End: 01-25-2022 Exposure to SARS-CoV-2 (event) Not sure [employer] Phone: Start: 08-29-2022 End: 05-16-2024 Sex Assigned At [employer] Start: 05-06-2023 End: 05-06-2023 Tobacco smoking status OHIS Smoker (finding) [facility] Start: 1995 Sex Assigned At Female F [facility] Start: 10-24-2023 Tobacco smoking stat us [facility] Ex-smoker [employer] Within the last year , have you been afraid of your partner or ex-partner? No [employer] How hard is it for y ou to pay for the very basics like food, housing, medical care, and heating Somewhat hard [employer] Patient Health Questionnaire 9 item (PHQ-9) total score [Reported] 1 [employer] (I/We) worried wheth er (my/our) food would run out before (I/we) got money to buy more. Sometimes true [employer] The food that (I/we) bought just didn't last, and (I/we) didn't have money to get more. Often true [employer] Start: 09-10-2023 [facility] [employer] Start: 11-13-2022 Gender identity Identifies as female gender (finding) [employer] Start: 11-13-2022 Sexual orientation Bisexual (finding ) [facility] (I/We) worried wheth er (my/our) food would run out before (I/we) got money to buy more. Never true [employer] The thought of naomi mcmahan myself has occurred to me Never [employer] NEGATED: Highlighted row [facility] Clinical Notes 06-02-2021 to 05-18-2024 Discharge Isabella Suazo APRN - CNM - 05/18/2024 11:39 AM Isabella Prasad APRN - CNM - 05/18/2024 11:36 AM Rdaha Jarrell - 05/17/2024 2:39 PM ESTDischarge Instructions Note Date & Type Note Facility 05-18-2024 Hospital Discharg e instructions Carlie Trevizo RN - 05/18/2024 12:46 PM EST Follow up with your OB provider as specified. [facility] OB Department MD Dr. Katie Fernandez DO Kathy Pool, MICHELLE Manuel, MICHELLE Alaniz CNM [address] [place] [address] [address] [place] Office: [place] Office: Physical Changes Afterbirth pains are cramps that occur in your lower abdomen; these occur due to the uterus shrinking back to its pre- size. Will likely be stronger during . Usually starts to go away after the 1st week . Empty your bladder often and frequently to reduce abdominal cramps. This allows room for your uterus to shrink back to normal. If the bladder remains full it can cause increased bleeding. Kegel Exercises will help restore bladder control. The 1st bowel movement may take 2-3 days. To avoid constipation, add a mild stool softener. To assist with bowel movement, try putting your feet on a stool, rest your elbows on your knees, and take deep breaths. Hemorrhoids may develop. If they do, avoid straining, use pre-moistened wipes, and apply ice packs and/or witch lisha pads. Eat a well-balanced diet focusing on foods high in fiber and protein. Drink 6-8 glasses of water a day. Swelling is common but should subside in time. Keep your legs elevated when possible. Wear stockings or socks; make sure they are not too tight. Hair loss may occur. Your hair goes through a resting phase. Therefore, you lose less during . Losing hair in large amounts is not unusual for the first 5 months after . Perineal Care/Bleeding Use the eula-bottle after toileting until the bleeding stops. Always cleanse from front to back. If a tear occurred, stitches would dissolve in 4-6 weeks. Use Epsom salts/sitz baths to alleviate any pain, burning, or itching. Vaginal Bleeding will decrease in amount over the next few weeks. First 1-3 days = Bright to dark red, heavy to medium flow, may have small clots. Blood clots should not be larger than an egg. Days 3-10 = [place] or Brown-tinged, medium to light flow, very few or no small clots. Days 10-14 (but may last longer) = Yellowish-white color, very light flow, no clots or bright red color. You may notice as your activity increases, your flow increases. Listen to your body; this is your body's way of telling you to take things easier and rest. A hemorrhage may occur at any time up to 12 weeks following . Call your provider if you are soaking through more than 1 pad in an hour and resting does not help. Activity Gradually increase your activity; resume regular exercise regimen only after advised by your provider. Avoid lifting anything heavier than a gallon of milk for [address] until you are cleared by your provider. Rise slowly from lying to sitting; give yourself time before standing. Climb stairs one at a time and limit the number of times you are using your stairs if able. No sexual activity or anything into the vagina for 4-6 weeks. This includes intercourse, tampons, or douching. Once you are cleared to have intercourse by your provider, if you experience difficulty or discomfort with intercourse you may want to add a water-based lubricant. Women often experience dryness and reduced lubrication due to the hormones associated with and . You may feel tired or have a lack of energy. Continue taking your vitamins to replenish nutrients after delivery. Nap when the baby naps. Managing Pain Take medications as prescribed by your provider; rotate medications to allow for optimal pain management. Rotate Tylenol and Motrin. Use the Clock Method = 12:00/6:00 Tylenol, 3:00/9:00 Motrin. Use topical sprays such as Dermo-plast or witch lisha pads (example: Tucks) as needed. Use ice pads as needed on perineum for any tears. Gas pains can be extremely uncomfortable. Walk, rock, or lay on your left side. Drink warm fluids. Avoid carbonated drinks. Avoid gassy foods. Emotions Baby Blues are normal. About 70-80% of new parents experience some negative feelings, thoughts, or mood swings. However, these feelings should only last for a few days. Common symptoms of Baby Blues: weepiness, impatience, irritability, restlessness, anxiety, feeling tired, insomnia, sadness, mood changes, poor concentration Roughly 1 in 7 people will experience moderate to severe Depression (PPD) or Anxiety (PPA). Symptoms usually develop in the first 3 months but can happen anytime during the 1st year after delivery. Same or similar symptoms to Baby Blues but emotions are felt more intensely, emotions last all day, more bad days than good, and/or emotions are strong enough they make it difficult to function, care for your , or change your feelings towards your . This can be a serious condition. Follow up with your provider if you have any of these symptoms. Post- Obsessive Compulsive Disorder (OCD) can involve things like excessively washing your hands or repeatedly checking on your due to all-consuming thoughts; these thoughts and concerns take up more than 1 hour a day. Call your OB for help if you are concerned. Post- Psychosis is a rare condition but requires immediate intervention and professional help. This usually occurs within 3-14 days after delivery. If there is a concern that a mother may be experiencing Psychosis, they should not be left alone with the . Get immediate help if you feel the following: Agitation or confusion, feeling afraid and not liking how you feel, rapid or nonsense speaking pattern, feeling like someone else is controlling you, hearing or seeing things no one else dose, thoughts of hurting yourself or others, feeling like something is crawling on you, having a lot of energy, racing thoughts and not sleeping, and/or forgetting things you have done in the past. If your infant will not stop crying, contact another adult to help or place infant in crib/bassinet on their back and walk away. Never shake your infant. Breast Care Take medication as prescribed by physician for pain. If you develop a warm, red, tender area on your breast or develop a fever, contact your OB provider. This could indicate mastitis which is an infection of breast tissue. For Non- Moms: Apply ice packs to your breasts over your bra for 20mins at a time for comfort. Avoid stimulation to your breasts; when showering, allow the warm water to hit your back, not your breasts. Wear a good fitting bra until your milk dries up. Most women who give recover without problems. But any woman can have complications after giving . Watch for these post- warning signs and seek medical attention: Call 911 if you have: Pain in your chest Difficulty breathing or shortness of breath. Seizures Thoughts of hurting yourself or someone else Call your provider if you have: Bleeding, soaking through one pad an hour or blood clots the size of an egg or bigger. Incision that is not healing Red or swollen leg that is painful or warm to the touch. Temperature of 100.4oF or higher. Headache that does not get better even after taking medicine, or a bad headache with vision changes. Call your physician for the following as well: If your abdomen is tender to the touch If you are experiencing extreme weakness or dizziness If you are having flu-like symptoms or muscle aches and pains If there is a foul smell or green color to your vaginal bleeding or discharge If you have pain that cannot be relieved If you have frequency and burning with urination If your incision is not healing and you notice swelling, bleeding, drainage, foul odor, redness, or warmth in/around the area. If you have concerns about your personal well-being, if you are unable to sleep and eat, or are having thoughts of harming yourself of your baby. documented in this encounter [facility] 05-18-2024 Hospital course Narrative Obstetrical Discharge Form Gestational Age:37w4d Antepartum complications: none Date of Delivery: 05/16/24 Type of Delivery: Delivered By: Austin Monique APRN, CNM Assisted By:N/A Baby: female Anesthesia: epidural Intrapartum complications: None Feeding method: bottle - Blood type: A POSITIVE Rubella: Rubella Antibody, IgG Date Value Ref Range Status 10/24/2023 76.8 IU/mL Final Comment: REFERENCE RANGE: <5.0 NON-REACTIVE (non-immune) 5.0 TO 9.9 EQUIVOCAL >=10.0 REACTIVE (immune) T. Pallidium, IGG: T. pallidum, IgG Date Value Ref Range Status 04/19/2024 NONREACTIVE NONREACTIVE Final Comment: T. pallidum antibodies are not detected. There is no serological evidence of infection with T. pallidum (early primary syphilis cannot be excluded). Retest in 2-4 weeks if syphilis is clinically suspect. Hepatitis B Surface Antigen: Hepatitis B Surface Ag Date Value Ref Range Status 10/24/2023 NONREACTIVE NONREACTIVE Final HIV: HIV Ag/Ab Date Value Ref Range Status 10/24/2023 NONREACTIVE NONREACTIVE Final Comment: No laboratory evidence of HIV infection. If acute HIV infection is suspected, consider testing for HIV-1 RNA. Results for orders placed or performed during the hospital encounter of 05/16/24 Urinalysis Result Value Ref Range Color, UA Yellow Yellow Turbidity UA Clear Clear Glucose, Ur NEGATIVE NEGATIVE mg/dL Bilirubin, Urine NEGATIVE NEGATIVE Ketones, Urine NEGATIVE NEGATIVE mg/dL Specific [place], UA 1.015 1.010 - 1.020 Urine Hgb NEGATIVE NEGATIVE pH, Urine 7.0 5.0 - 9.0 Protein, UA NEGATIVE NEGATIVE mg/dL Urobilinogen, Urine Normal 0.0 - 1.0 EU/dL Nitrite, Urine NEGATIVE NEGATIVE Leukocyte Esterase, Urine NEGATIVE NEGATIVE CBC auto differential Result Value Ref Range WBC 8.9 3.5 - 11.3 k/uL RBC 4.40 3.95 - 5.11 m/uL Hemoglobin 12.6 11.9 - 15.1 g/dL Hematocrit 38.6 36.3 - 47.1 % MCV 87.7 82.6 - 102.9 fL MCH 28.6 25.2 - 33.5 pg MCHC 32.6 28.4 - 34.8 g/dL RDW 14.3 11.8 - 14.4 % Platelets 184 138 - 453 k/uL MPV 11.8 8.1 - 13.5 fL NRBC Automated 0.0 0.0 per 100 WBC Neutrophils % 60 36 - 65 % Lymphocytes % 33 24 - 43 % Monocytes % 5 3 - 12 % Eosinophils % 1 1 - 4 % Basophils % 0 0 - 2 % Immature Granulocytes % 1 (H) 0 % Neutrophils Absolute 5.35 1.50 - 8.10 k/uL Lymphocytes Absolute 2.90 1.10 - 3.70 k/uL Monocytes Absolute 0.46 0.10 - 1.20 k/uL Eosinophils Absolute 0.07 0.00 - 0.44 k/uL Basophils Absolute 0.03 0.00 - 0.20 k/uL Immature Granulocytes Absolute 0.04 0.00 - 0.30 k/uL Comprehensive Metabolic Panel Result Value Ref Range Sodium 137 136 - 145 mmol/L Potassium 3.8 3.7 - 5.3 mmol/L Chloride 105 98 - 107 mmol/L CO2 20 20 - 31 mmol/L Anion Gap 12 9 - 16 mmol/L Glucose 88 74 - 99 mg/dL BUN 4 (L) 6 - 20 mg/dL Creatinine 0.4 (L) 0.50 - 0.90 mg/dL Est, Glom Filt Rate >90 >60 mL/min/1.73m2 BUN/Creatinine Ratio 10 9 - 20 Calcium 8.6 8.6 - 10.4 mg/dL Total Protein 6.0 (L) 6.6 - 8.7 g/dL Albumin 3.5 3.5 - 5.2 g/dL Albumin/Globulin Ratio 1.4 1.0 - 2.5 Total Bilirubin <0.2 0.00 - 1.20 mg/dL Alkaline Phosphatase 133 (H) 35 - 104 U/L ALT 9 (L) 10 - 35 U/L AST 15 10 - 35 U/L Drug screen multi urine Result Value Ref Range Amphetamine Screen, Ur NEGATIVE NEGATIVE Barbiturate Screen, Ur NEGATIVE NEGATIVE Benzodiazepine Screen, Urine NEGATIVE NEGATIVE Cocaine Metabolite, Urine NEGATIVE NEGATIVE Methadone Screen, Urine NEGATIVE NEGATIVE Opiates, Urine NEGATIVE NEGATIVE Phencyclidine, Urine NEGATIVE NEGATIVE Cannabinoid Scrn, Ur NEGATIVE NEGATIVE Oxycodone Screen, Ur NEGATIVE NEGATIVE Fentanyl, Ur NEGATIVE NEGATIVE Buprenorphine Urine NEGATIVE NEGATIVE Test Information This method is a screening test to detect only these drug classes as part of a medical workup. Confirmatory testing by another method should be ordered if clinically indicated. Protein / Creatinine Ratio, Urine Result Value Ref Range Total Protein, Urine 13 mg/dL Creatinine, Ur 108.0 28.0 - 217.0 mg/dL Urine Total Protein Creatinine Ratio 0.12 0.00 - 0.20 TYPE AND SCREEN Result Value Ref Range Blood Bank Sample Expiration 05/19/2024,2359 Arm Band Number [id number] ABO/Rh A POSITIVE Antibody Screen NEGATIVE complications: none Discharge Medication: Medication List START taking these medications escitalopram 20 MG tablet Commonly known as: LEXAPRO Take 1 tablet by mouth daily CONTINUE taking these medications 19 PO STOP taking these medications acetaminophen 325 MG tablet Commonly known as: TYLENOL terconazole 0.4 % vaginal cream Commonly known as: TERAZOL 7 Admit date: 05/16/2024 10:15 AM Discharge Date: 05/18/2024 Discharged to: Home in stable condition Plan: Follow up in 6 week(s) for post visit, breast feeding check, and post depression check documented in this encounter [facility] 05-18-2024 History of Presen t illness Narrative Department of Obstetrics and Gynecology Labor and Delivery Post Progress Note SUBJECTIVE: PT is ready to leave.pt states she is doing well with minimal pain and bleeding OBJECTIVE: Vitals: BP (!) 112/58 Pulse 75 Temp 97.8 F (36.6 C) (Oral) Resp 18 Ht 1.638 m (5' 4.5 ) Wt 82.6 kg (182 lb) LMP 08/27/2023 SpO2 98% Unknown BMI 30.76 kg/m Patient Vitals for the past 24 hrs: BP Temp Temp src Pulse Resp SpO2 05/18/24 0820 (!) 112/58 97.8 F (36.6 C) Oral 75 18 98 % 05/17/24 1621 108/65 -- -- 80 -- -- 05/17/24 1620 -- 97.5 F (36.4 C) Tympanic -- 16 98 % 05/17/24 1231 113/62 97.7 F (36.5 C) Oral 80 18 97 % ABDOMEN: normal shape, position and consistency GENITAL/URINARY: External Genitalia: General appearance; normal, Hair distribution; normal, Lesions absent Uterus: Size normal, Contour normal Breast:normal appearance, no masses or tenderness Cor: RRR no Murmurs Pulmonary: clear to auscultation anterior and posterior Extremities: no Clubbing cyanosis or ecchymosis DATA: ASSESSMENT : Principal Problem: Uterine contractions during Active Problems: heart rate non-reassuring affecting management of mother 37 weeks gestation of (normal spontaneous vaginal delivery) Plan: Discharge home Spiritual Services Interventions 05/17/2024 Radha Eagle 28 y.o. year old female Encounter Summary Encounter Overview/Reason: Initial Encounter Service Provided For: Patient, Significant other Referral/Consult From: Other (comment) (spiritual care order) Support System: Significant other Last Encounter : 05/17/24 Complexity of Encounter: Moderate Begin Time: 1225 End Time : 1240 Total Time Calculated: 15 min Spiritual/Emotional needs Type: Spiritual Support Assessment/Intervention/Outcom e Assessment: Calm, Loneliness (pt commented about some loneliness but then said not really just when everyone left after having baby) Intervention: Active listening, Explored/Affirmed feelings, thoughts, concerns Outcome: Encouraged, Engaged in conversation Spiritual Services Interventions 05/17/2024 Radha Eagle 28 y.o. year old female Encounter Summary Encounter Overview/Reason: Initial Encounter Encounter Code: (P) Q9001 Assessment by master welder services Service Provided For: (P) Patient, Significant other Referral/Consult From: (P) Other (comment) (spiritual care order) Support System: (P) Significant other Last Encounter : (P) 05/17/24 Complexity of Encounter: (P) Moderate Begin Time: (P) 1225 End Time : (P) 1240 Total Time Calculated: (P) 15 min Spiritual/Emotional needs Type: (P) Spiritual Support Assessment/Intervention/Outcom e Assessment: (P) Calm, Loneliness (pt commented about some loneliness but then said not really just when everyone left after having baby) Intervention: (P) Active listening, Explored/Affirmed feelings, thoughts, concerns Outcome: (P) Encouraged, Engaged in conversation Department of Obstetrics and Gynecology Labor and Delivery Post Progress Note SUBJECTIVE: PT states she has napped off and on but not really slept. Pt has gotten up to bathroom off and on. Mentally pt states she I doing well and her bleeding is weel controlled OBJECTIVE: Vitals: BP (!) 122/59 Pulse 83 Temp 98.5 F (36.9 C) (Oral) Resp 18 Ht 1.638 m (5' 4.5 ) Wt 82.6 kg (182 lb) LMP 08/27/2023 SpO2 100% Unknown BMI 30.76 kg/m Patient Vitals for the past 24 hrs: BP Temp Temp src Pulse Resp SpO2 Height Weight 05/16/24 2341 (!) 122/59 98.5 F (36.9 C) Oral 83 18 -- -- -- 05/16/242056 (!) 110/59 97.6 F (36.4 C) Oral (!) 103 18 -- -- -- 05/16/242041 112/75 -- -- 93 16 -- -- -- 05/16/242026 107/67 -- -- 83 16 -- -- -- 05/16/242011 129/64 -- -- 83 16 -- -- -- 05/16/241956 120/60 -- -- 86 16 -- -- -- 05/16/241941 (!) 116/57 -- -- 79 16 -- -- -- 05/16/241926 (!) 103/58 -- -- 76 16 -- -- -- 05/16/241911 (!) 137/54 -- -- 81 16 -- -- -- 05/16/241910 (!) 137/94 -- -- (!) 157 -- -- -- -- 05/16/24 1858 127/77 -- -- 87 16 -- -- -- 05/16/24 1827 107/61 -- -- 78 18 -- -- -- 05/16/24 1820 -- 98 F (36.7 C) Oral -- -- -- -- -- 05/16/24 1757 109/68 -- -- 72 18 -- -- -- 05/16/24 1730 114/63 -- -- 88 16 100 % -- -- 05/16/24 1727 114/63 -- -- 88 16 99 % -- -- 05/16/24 1700 -- -- -- -- -- 99 % -- -- 05/16/24 1657 123/80 -- -- 88 16 99 % -- -- 05/16/24 1630 114/65 98.1 F (36.7 C) Oral 74 16 98 % -- -- 05/16/24 1627 114/65 -- -- 74 16 -- -- -- 05/16/24 1625 -- -- -- -- -- 99 % -- -- 05/16/24 1555 104/65 -- -- 77 16 98 % -- -- 05/16/24 1545 -- -- -- -- -- 99 % -- -- 05/16/24 1540 (!) 106/59 -- -- 72 16 99 % -- -- 05/16/24 1524 107/63 -- -- 90 16 99 % -- -- 05/16/24 1509 114/63 -- -- 79 16 100 % -- -- 02/21/25 1504 123/69 -- -- 79 16 100 % -- -- 05/16/24 1459 111/62 -- -- 86 18 100 % -- -- 05/16/24 1454 116/65 -- -- 96 16 100 % -- -- 05/16/24 1452 112/64 -- -- 77 16 -- -- -- 05/16/24 1450 120/76 -- -- 90 16 100 % -- -- 05/16/24 1430 -- 98 F (36.7 C) Oral -- -- 100 % -- -- 05/16/24 1321 105/69 -- -- 77 16 99 % -- -- 05/16/24 1318 -- -- -- -- 16 -- -- -- 05/16/24 1219 -- -- -- -- -- 97 % -- -- 05/16/24 1218 103/75 98.1 F (36.7 C) Oral 82 16 97 % -- -- 05/16/24 1104 103/64 -- -- 95 16 98 % -- -- 05/16/24 1036 -- -- -- -- -- -- 1.638 m (5' 4.5 ) 82.6 kg (182 lb) 05/16/24 1022 129/73 97.1 F (36.2 C) Axillary 94 16 100 % -- -- ABDOMEN: normal shape, position and consistency GENITAL/URINARY: External Genitalia: General appearance; normal, Hair distribution; normal, Lesions absent Uterus: Size normal, Contour normal, Position normal Breast:normal appearance, no masses or tenderness Cor: RRR no Murmurs Pulmonary: clear to auscultation anterior and posterior Extremities: no Clubbing cyanosis or ecchymosis DATA: ASSESSMENT : Principal Problem: Uterine contractions during Active Problems: heart rate non-reassuring affecting management of mother 37 weeks gestation of (normal spontaneous vaginal delivery) Plan: Continue care Plan D/C 05/18/24 FSE placement per Fidel BROOKE with Carolynn MARTINEZ instructing. FSE placement successful, pt tolerates well. IUPC placed by David BROOKE with Carolynn MARTINEZ instructing. Placement successful. IUPC placement attempted by David RN with Fidel BROOKE instructing her. Attempted by David BROOKE x 2 without success. 14:37- Blane.Vito ORNAMENTAL PAINTER at bedside. 14:41- timeout for epidural procedure with television writer, Agnes DEWITT, and pt's mother at bedside. Pt's mother sits in chair directly in front of patient. 14:44- start of epidural procedure per J.Baiera ORNAMENTAL PAINTER. 14:45- epidural in per J.Baiera ORNAMENTAL PAINTER. 14:46- test dose of epidural per J.Baiera ORNAMENTAL PAINTER. Pt tolerates well. HR 85. Carolynn MARTINEZ at bedside. Patient requests epidural prior to AROM. CNM states patient can have epidural now and she will come back later for AROM. [employer] CNM updated on lab results. CNM states she will be in soon to AROM. Patient updated on plan of care. [employer] Laborer calls Carolynn MARTINEZ and reports patient arrival with complaints of contractions, SVE reported, urinalysis reported, 2 late decels noted and patient put on left side and no lates noted since then. Orders received to admit patient and add CMP to labwork and urine protein/creatinine ration and urine tox, start pitocin induction. Pt updated on plan of care and is agreeable. Patient states she has felt movement today but not as much as usual . Pt denies vaginal bleeding or leaking of fluid. Pt states she has a headache this morning, denies blurred vision, floaters, epigastric pain. Pt grimaces and stops talking during contractions. Pt to Rm 204 per wheelchair from ER waiting room. FOB and pt's mother accompany her. Pt states she has been having contractions about 10 min apart since 06:50 this a.m. Pt states it is her 2nd baby and she sees [facility] for care. Pt states she was 4cm dilated at last office appointment. Pt to bathroom to put on gown and give urine specimen. documented in this encounter [facility] 04-20-2024 Hospital Discharg e Mayra Iraheta RN - 04/20/2024 4:02 PM EST OUTPATIENT DISCHARGE Dr. Aracelis Monique [facility] Dr. Frederick Manuel [address] [facility] [address] [place] or [place] ACTIVITY LIMITATIONS: ( )Up and about as desired and tolerated ( )Up to bathroom only ( )Lay on either side (x )Avoid heavy lifting or exercise (x )No sex (x )No nipple stimulation ( )Complet bedrest ( )Avoid using stairs ( x )Increase fluids DRINK AT LEAST eight-8oz. Glasses of water daily. Call your Doctor if: ( x)Bag of water breaks ( x )Vaginal bleeding ( x )Unusual pain occurs ( x )Decreased movement (x ) labor: If you have 4 contractions in an hour Keep your scheduled follow up appointment. Or call for a follow up on . IN CASE OF EMERGENCY CONTACT LABOR AND DELIVERY . documented in this encounter [facility] [employer] 08-23-2021 Hospital Discharg Dmitri Reeder MD - 08/23/2021 TYLENOL/ MOTRIN FOR PAIN. DRINK PLENTY OF FLUIDS. RETURN FOR NEW OR WORSENING SYMPTOMS. The following attachments cannot be sent through Care Everywhere.Abdominal Pain (Swazi)documented in this encounter [employer] Work Phone: 06-02-2021 Evaluation note Encounter Date Diagnosis Assessment Notes May, Navel cellulitis (ICD-10 - L03.316) Use medications as directed. Culture was obtained and will be sent to lab. Cover area as instructed. May use gently cleanser to area between daily application as instructed. Will call results of culture if one was obtained as medication changes are necessary. Follow up with primary care provider if no improvement of symptoms or if symptoms worsen. [employer] Other Evaluation note* Diagnosis Lower abdominal pain- Primary Abdominal pain, other specified site documented in this encounter [employer] Phone: evaluation note* Diagnosis Lab test positive for detection of COVID-19 virus- Primary documented in this encounter [employer] Phone: evaluation note* Diagnosis Onset Date Resolution Status Acute bacterial pharyngitis acute [facility] Work Phone: Evaluation noteNo assessment information available [facility] Work Phone: Evaluation note* Diagnosis Encounter for supervision of other normal in first trimester Amenorrhea Absence of menstruation Positive urine test documented in this encounter [facility]* Diagnosis Abdominal cramping- Primary Abdominal pain, unspecified site documented in this encounter [facility] note* Diagnosis Vagina itching Pruritus of genital organs Screen for STD (sexually transmitted disease) Screening examination for venereal disease 36 weeks gestation of state, incidental Allergy to amoxicillin documented in this encounter [facility] note* Diagnosis Uterine contractions during - Primary heart rate non-reassuring affecting management of mother Abnormality in heart rate/rhythm, unspecified as to episode of care or not applicable 37 weeks gestation of state, incidental (normal spontaneous vaginal delivery) Normal delivery documented in this encounter [facility] general Narrative - Reported* Type Description Date Surgical History tonsillectomy Hospitalization History [facility] [employer] Other Hospital Discharge instructions* Attachments The following attachments cannot be sent through Care Everywhere. * Coronavirus Disease (COVID-19): General Info (Swazi) [facility] Work Phone: Hospital Discharge instructions Additional Instructions Follow-up with your primary care doctor [facility] develop [facility]: Summary Purpose Family History No Family History Records Found Relationship Condition Age at Onset Recorded Date/T vishnu Not Specified No pertinent family history Unknown father Family history of mental disorder Unknown Drug abuse Unknown Not Specified Drug abuse Unknown Family history of mental disorder Unknown Advance Directives No Advanced Directives Records Found Date Activated Date Inactivated Comments 04/20/2024 3:26 PM 04/20/2024 6:30 PM Date Activated Date Inactivated Comments 04/19/2024 12:41 AM 04/19/2024 9:38 AM Advance Directive Response Recorded Date/ Time Advance Directives No June 27 3:09pm Advance Directive Response Recorded Date/ Time Advance Directives No June 27 2:09pm Date Activated Date Inactivated Comments 04/20/2024 3:26 PM Date Activated Date Inactivated Comments 05/16/2024 10:26 AM 05/16/2024 7:25 PM Date Activated Date Inactivated Comments 04/20/2024 3:26 PM 04/20/2024 6:30 PM Date Activated Date Inactivated Comments 04/19/2024 12:41 AM 04/19/2024 9:38 AM Chief Complaint and Reason for Visit Chief Complaint sore throat/sinus is sues sore throat, cough, nausea, headache m54.2 Reason for Visit Acute bacterial phar yngitis Chief Complaint sore throat/sinus is sues sore throat, cough, nausea, headache m54.2 lightheaded Reason for Visit Acute bacterial phar yngitis Chief Complaint sore throat/sinus is sues Additional Source Comments INFORMATION SOURCE (unrecogn ized section and content) DATE CREATED AUTHOR 01/22/2021 [facility] DATE CREATED AUTHOR AUTHOR'S ORGANIZ ATION 09/04/2022 [facility] DATE CREATED AUTHOR AUTHOR'S ORGANIZ ATION 03/04/2023 [facility] DATE CREATED AUTHOR AUTHOR'S ORGANIZ ATION 07/04/2023 [facility] DATE CREATED AUTHOR AUTHOR'S ORGANIZ ATION 02/12/2024 [facility] DATE CREATED AUTHOR AUTHOR'S ORGANIZ ATION 05/09/2024 [facility] DATE CREATED AUTHOR AUTHOR'S ORGANIZ ATION 06/02/2024 [facility] Reason for Visit (unrecogniz ed section and content) Reason Comments Abdominal Pain Reason Comments Illness Pt c/o a fever, naus ea, chills, and a headache that started this AM Reason Comments Abdominal Pain Lower abdominal cram ping and vaginal pressure Vaginal Discharge Reason Comments Contractions Scheduled Active and Recently Administ ered Medications (unrecognized section and content) Medication Order 08/21/2021 08/22/2021 08/23/2021 ketorolac (TORADOL) injection 30 mg (COMPLETED) Ketorolac is contraindicated in patients with advanced renal impairment and in patients at risk of renal failure due to volume depletion. For 65 years of age and older OR weight less than 50 kg, use 15 mg IV every 6 hours; MAX dose: 60 mg/day. Dose greater than 30 mg must be administered via intramuscular route. Do not administer for more than 5 days., 30 mg, IntraMUSCular, ONCE, 1 dose, On Sun08/23/21 at 1557, Do not administer for more than 5 days. 1605 (Given - Provid er: Logan Forde RN) Scheduled Medication Order 01/23/2022 01/24/2022 01/25/2022 acetaminophen (TYLENOL) tablet 650 mg (COMPLETED) 650 mg, Oral, ONCE, 1 dose, On Sun01/25/22 at 1934, Maximum dose of acetaminophen is 4000 mg from all sources in 24 hours. 1939 (Given - Provid er: Ninfa Diane RN) ketorolac (TORADOL) injection 30 mg (COMPLETED) Ketorolac is contraindicated in patients with advanced renal impairment and in patients at risk of renal failure due to volume depletion. For 65 years of age and older OR weight less than 50 kg, use 15 mg IV every 6 hours; MAX dose: 60 mg/day. Dose greater than 30 mg must be administered via intramuscular route. Do not administer for more than 5 days., 30 mg, IntraMUSCular, ONCE, 1 dose, On Sun01/25/22 at 1934 1938 (Given - Provid er: Ninfa Diane RN) ondansetron (ZOFRAN-ODT) disintegrating tablet 4 mg (COMPLETED) 4 mg, Oral, ONCE, 1 dose, On Sun01/25/22 at 1934 1939 (Given - Provid er: Ninfa Diane RN) Scheduled Medication Order 05/16/2024 05/17/2024 05/18/2024 escitalopram (LEXAPRO) tablet 20 mg 20 mg, Oral, DAILY, First dose on Sun05/16/24 at 2045, Until Discontinued 2050 (Not Given - Provider: Johanny Perera RN - Reason: Patient/family refused) 0854 (Not Given - Provider: Serena Hernandez RN - Reason: Patient/family refused) 0900 (Due) ibuprofen (ADVIL;MOTRIN) tablet 800 mg 800 mg, Oral, EVERY 8 HOURS SCHEDULED (3 times per day), First dose on Sun05/16/24 at 2200, Until Discontinued, Once tolerating PO, discontinue Ketorolac and begin ibuprofen 8 hours after the final dose of Ketotolac. Alternate ibuprofen and acetaminophen every 4 hours., 2058 (Given - Provider: Johanny Perera RN) 0802 (Given - Provider: Dallas Saavedra LPN)1635 (Given - Provider: Serena Hernandez RN) 0044 (Given - Provider: Ciera Leo RN)0827 (Given - Provider: Serena Hernandez RN)1400 (Due)2200 (Due) measles, mumps & rubella vaccine (MMR) injection 0.5 mL 0.5 mL, SubCUTAneous, PRIOR TO DISCHARGE, 1 dose, Starting on Sun05/16/24 at 1925, Until Discontinued, PRN prior to discharge if patient is known to be rubella non-immune or equivocal status. , sodium chloride flush 0.9 % injection 5-40 mL 5-40 mL, IntraVENous, EVERY 12 HOURS SCHEDULED (2 times per day), First dose on Sun05/16/24 at 2100, Until Discontinued, For Line Patency: Peripheral IV = 5 mL; Midline or Central Line = 10 mL/lumen. If following IV push medication, administer flush at same rate as the IV push. Flush volume is determined by type of infusion therapy being given. For non-viscous solutions use: Peripheral IV = 5 mL Midline or Central Line = 10 mL/lumen For viscous solutions (i.e. blood components, parenteral nutrition, contrast media, or after obtaining blood sample) use: Peripheral IV = 10 mL Midline or Central Line = 20 mL/lumen, 2048 (Not Given - Provider: Johanny Perera RN - Reason: IV Fluid Infusing) 0900 (Due)2100 (Due) 0900 (Due)2100 (Due) Continuous Medication Order 05/16/2024 05/17/2024 05/18/2024 lactated ringers infusion (CANCELED) IntraVENous, at 75 mL/hr, CONTINUOUS, Starting on Sun05/16/24 at 1200, After epidural bolus given, infuse LR at 75mL/hr, Labor and Delivery 1206 (New Bag - Provider: Serena Hernandez, EDWARDO)1316 (Rate/Dose Verify - Provider: Serena Hernandez RN)1347 (Rate/Dose Verify - Provider: Serena Hernandez RN)1445 (Rate/Dose Change - Provider: Serena Hernandez RN)1614 (Rate/Dose Verify - Provider: Serena Hernandez RN)1825 (Rate/Dose Verify - Provider: Serena Hernandez RN)1954 (Canceled Entry - Provider: Serena Hernandez RN)2100 (Stopped - Provider: Johanny Perera, RN) oxytocin (PITOCIN) 30 units in 500 mL infusion (CANCELED) 1-24 maryellen-units/min (1-24 mL/hr), IntraVENous, CONTINUOUS, Starting on Sun05/16/24 at 1200, Until Sun05/16/24 at 1925, Begin infusion at 1 maryellen-unit/min (1 maryellen-unit per min = 1 mL per hour) . Then increase by 2 maryellen-units/min as needed, no faster than every 30 minutes, until labor is achieved. Labor is defined as contractions every 2-3 minutes with cervical changes or Sullivan units (MVU) greater than 200 in a 10-minute window. Maximum infusion rate: 24 maryellen-unit/min. Contact provider if maximum rate does not achieve desired response. Provider may order alternative titration goal or other clinically appropriate goal of titration rate (s). Smaller titration increments of 1 maryellen-units/min, not faster than every 30 minutes, may be used when approaching therapeutic goal after discussion with provider. If unable to increase call provider and let them know. At time of needed increase, Labor and Delivery 1208 (New Bag - Provider: Serena Hernandez RN)1243 (Rate/Dose Change - Provider: Serena Hernandez RN)1315 (Rate/Dose Change - Provider: Serena Hernandez, EDWARDO)1345 (Rate/Dose Change - Provider: Serena Hernandez, RN)1532 (Rate/Dose Verify - Provider: Serena Hernandez RN)1549 (Rate/Dose Change - Provider: Serena Hernandez, EDWARDO)1733 (Rate/Dose Change - Provider: Serena Hernandez, RN)1841 (Rate/Dose Change - Provider: Serena Hernandez, EDWARDO)1855 (Rate/Dose Change - Provider: Serena Hernandez, EDWARDO)1856 (Rate/Dose Change - Provider: Serena Hernandez, EDWARDO)2047 (Stopped - Provider: Johanny Perera, RN) PRN Medication Order 05/16/2024 05/17/2024 05/18/2024 acetaminophen (TYLENOL) tablet 1,000 mg 1,000 mg, Oral, EVERY 8 HOURS PRN, Starting on Sun05/16/24 at 1925, Until Discontinued, Pain Mild (1-3), Allowed for higher pain score per patient request, Maximum dose of acetaminophen is 4000mg from all sources in 24 hours. Alternate ibuprofen and acetaminophen every 4 hours., 2339 (Given - Provider: Mike Akhtar, EDWARDO) 1233 (Given - Provider: Serena Hernandez, EDWARDO) benzocaine-menthol (DERMOPLAST) 20-0.5 % spray Topical, PRN, Pain, Starting on Sun05/16/24 at 1925, Apply to perineal area. Patient is capable and may self administer at bedside., 2103 (Given - Provider: Johanny Perera RN) carboprost (HEMABATE) injection 250 mcg 250 mcg, IntraMUSCular, PRN, Starting on Sun05/16/24 at 1925, Until Discontinued, bleeding, May repeat every 15 minutes up to a cumulative maximum dose of 1000 mcg, at physician's request., docusate sodium (COLACE) capsule 100 mg 100 mg, Oral, 2 TIMES DAILY PRN, Starting on Sun05/16/24 at 1925, Until Discontinued, Constipation, Do not crush or break., 0946 (Given - Provider: Serena Hernandez, EDWARDO) 0827 (Given - Provider: Serena Hernandez, EDWARDO) lactated ringers bolus 1,000 mL (CANCELED)(Linked Group 1) 1,000 mL, IntraVENous, at 1,935.5 mL/hr, Administer over 31 Minutes, PRN, Give prior to epidural placement. May be repeated if a second epidural/spinal procedure is performed., Starting on Sun05/16/24 at 1127, Labor and Delivery 1417 (Rate/Dose Change - Provider: Serena Hernandez, EDWARDO)1429 (New Bag - Provider: Serena Hernandez RN - Comment: by gravity)1445 (Stopped - Provider: Serena Hernandez RN) lansinoh lanolin ointment Topical, PRN, Dry Skin, nipple discomfort, Starting on Sun05/16/24 at 1925, methylergonovine (METHERGINE) injection 200 mcg (CANCELED) 200 mcg, IntraMUSCular, PRN, Starting on Sun05/16/24 at 1127, Until Sun05/16/24 at 1925, Bleeding, Prevention of post- hemorrhage, if not hypertensive., Post Delivery 1840 (Given - Provider: Serena Hernandez RN) methylergonovine (METHERGINE) injection 200 mcg 200 mcg, IntraMUSCular, PRN, Starting on Sun05/16/24 at 1925, Until Discontinued, Bleeding, PRN for post- hemorrhage, if not hypertensive., miSOPROStol (CYTOTEC) tablet 200 mcg 200 mcg, Buccal, PRN, Starting on Sun05/16/24 at 1925, Until Discontinued, For Post- Hemorrhage, miSOPROStol (CYTOTEC) tablet 800 mcg 800 mcg, Rectal, PRN, 1 dose, Starting on Sun05/16/24 at 1925, Until Discontinued, Post- Hemorrhage, Notify Physician prior to administration., ondansetron (ZOFRAN) injection 4 mg(Linked Group 2) 4 mg, IntraVENous, EVERY 6 HOURS PRN, Starting on Sun05/16/24 at 1925, Until Discontinued, Nausea, Vomiting, Administer if oral route cannot be used., ondansetron (ZOFRAN-ODT) disintegrating tablet 4 mg(Linked Group 2) 4 mg, Oral, EVERY 6 HOURS PRN, Starting on Sun05/16/24 at 1925, Until Discontinued, Nausea, Vomiting, oxytocin (PITOCIN) 30 units in 500 mL infusion(Linked Group 3) 166 maryellen-units/min (166 mL/hr), IntraVENous, PRN, 1 dose, Starting on Sun05/16/24 at 1127, Until Discontinued, Bleeding, For Post Use Only. Give after delivery of placenta. Following Bolus from bag administration, reduce the rate to 166 mL/hr and administer remaining bag witch lisha-glycerin (TUCKS) pad Topical, PRN, Hemorrhoids, Starting on Sun05/16/24 at 1925, Apply to perineal area. Patient is capable and may self administer at bedside., 2102 (Given - Provider: Johanny Perera RN) Linked Groups Order Group 1: lactated ringers bolus 500 mL (CANCELED) 500 mL, IntraVENous, at 967.7 mL/hr, Administer over 31 Minutes, PRN, Intrauterine resuscitation for hypertonus, tachysystole, non-reassuring status, or as prescribed by the physician. Every hour as needed, nurse may repeat bolus., Starting on Sun05/16/24 at 1127, Labor and Delivery Or lactated ringers bolus 1,000 mL (CANCELED)Jump to med 1,000 mL, IntraVENous, at 1,935.5 mL/hr, Administer over 31 Minutes, PRN, Give prior to epidural placement. May be repeated if a second epidural/spinal procedure is performed., Starting on Sun05/16/24 at 1127, Labor and Delivery Group 2: ondansetron (ZOFRAN-ODT) disintegrating tablet 4 mgJump to med 4 mg, Oral, EVERY 6 HOURS PRN, Starting on Sun05/16/24 at 1925, Until Discontinued, Nausea, Vomiting, Or ondansetron (ZOFRAN) injection 4 mgJump to med 4 mg, IntraVENous, EVERY 6 HOURS PRN, Starting on Sun05/16/24 at 1925, Until Discontinued, Nausea, Vomiting, Administer if oral route cannot be used., Group 3: oxytocin (PITOCIN) 30 units in 500 mL infusionJump to med 166 maryellen-units/min (166 mL/hr), IntraVENous, PRN, 1 dose, Starting on Sun05/16/24 at 1127, Until Discontinued, Bleeding, For Post Use Only. Give after delivery of placenta. Following Bolus from bag administration, reduce the rate to 166 mL/hr and administer remaining bag And oxytocin (PITOCIN) 10 unit bolus from the bag (CANCELED) 999 mL/hr, IntraVENous, PRN, 1 dose, Starting on Sun05/16/24 at 1127, Until Sun05/16/24 at 1925, Bleeding, For Post Use Only. Give after delivery of placenta. Bolus for bag to infuse at 999ml/20 minutes., Post Delivery Care Teams (unrecognized sec tion and content) Team Status: Active Member Role Status Dates PHYSICIAN NO FAMILY Primary Care Provider Active Team Status: Inactive Member Role Status Dates PHYSICIAN NO FAMILY Primary Care Provider Active Start: May 06, 2023 End: May 06, 2023 Jourdan Sylvester DO Emergency Provider Active Sta rt: May 06, 2023 End: May 06, 2023 Wood Barrel Reconditioner Relationship Specialty Start Date End Date Rosita Alex MD [address] [place] [address] [place] [address] PCP - General Internal Medicine 07/22/21 Wood Barrel Reconditioner Relationship Specialty Start Date End Date Rosita Alex MD [address] [address] PCP - General Internal Medicine 07/22/21 Team Status: Active Member Role Status Dates Services [facility] Primary Care Provider Active Team Status: Inactive Member Role Status Dates PHYSICIAN NO FAMILY Primary Care Provider Active Start: May 30, 2023 End: May 30, 2023 Serena Do APRN Attending Provider Active S tart: May 30, 2023 End: May 30, 2023 Team Status: Inactive Member Role Status Dates Services [facility] Primary Care Provider Active Start: June 19, 2023 End: June 19, 2023 Sushila Chairez APRN [employer] Attending Provider Active Start: June 19, 2023 End: June 19, 2023 Team Status: Inactive Member Role Status Dates [facility] Primary Care Provider Active Start: June 21, 2023 End: June 21, 2023 Kamar Kraus DO Emergency Provider Active St art: June 21, 2023 End: June 21, 2023 Wood Barrel Reconditioner Relationship Specialty Start Date End Date None, None PCP - General 11/21/23 Wood Barrel Reconditioner Relationship Specialty Start Date End Date None, None PCP - General 11/21/23 Wood Barrel Reconditioner Relationship Specialty Start Date End Date None, None PCP - General 11/21/23 Ordered Prescriptions (unrec ognized section and content) Prescription Sig Dispensed Refills Start Date End Da te ondansetron (ZOFRAN ODT) 4 MG disintegrating tablet Take 1 tablet by mouth every 12 hours as needed for Nausea May Sub regular tablet (non-ODT) if insurance does not cover ODT. 8 tablet 0 01/25/2022 ibuprofen (IBU) 800 MG tablet Take 1 tablet by mouth every 8 hours as needed for Pain 20 tablet 0 01/25/2022 Goals (unrecognized section and content) Goals may be documented in a n alternate section FOR RECORDS PERTAINING TO PATIENTS WHO ARE OR HAVE BEEN ENROLLED IN A CHEMICAL DEPENDENCY/SUBSTANCEABUSE PROGRAM, SOME INFORMATION MAY BE OMITTED. This clinical summary was aggregated from multiple sources. Caution should be exercised in using it in the provision of clinical care. This summary normalizes information from multiple sources, and as a consequence, information in this document may materially change the coding, format and clinical context of patient data. In addition, data may be omitted in some cases. CLINICAL DECISIONS SHOULD BE BASED ON THE PRIMARY CLINICAL RECORDS. [facility]. provides no warranty or guarantee of the accuracy or completeness of information in this document.
--- NOTE | 2024-10-03 19:10 | ED_ITS ---
HPI - Abdominal Pain General Chief Complaint: Abdominal Pain Stated Complaint: HEAVY VAGINAL BLEEDING, CRAMPING POSSIBLE MISCARR Time Seen by Provider: 10/03/24 19:06 Source: patient Mode of arrival: walk-in Limitations: no limitations History of Present Illness HPI narrative: The patient did is a 29-year-old female who presented to the emergency department secondary to painful and heavy vaginal bleeding. It started yesterday afternoon with bleeding followed by cramping. The cramping has been constant since yesterday. Pain is an 8 out of 10. It is located from the umbilicus to the pelvis. Unknown what makes it worse. Nothing makes it better. She has tried Tylenol and Motrin neither have helped with her pain. Patient states that her last menstrual period was about 5 to 6 weeks ago. She stated she was concerned that she may have been having a miscarriage because she had such heavy clots and she saw one of her clots looked grayish and so she thought perhaps that was products of conception. Patient denies any dysuria, hematuria, urgency or frequency. There has been no vaginal discharge or odor prior to this heavy vaginal bleeding. No fever or chills. No sick contacts or recent travel. She does not feel dizzy or lightheaded. Related Data Home Medications ?Medication ?Instructions ?Recorded ?Confirmed No Known Home Medications 10/03/2409/23 Allergies Allergy/AdvReac Type Severity Reaction Status Date / Time amoxicillin Allergy Severe Hives Verified 10/03/24 18:59 aspirin Allergy Severe Hives Verified 10/03/24 18:59 trazodone Allergy Abdominal Verified 10/03/24 18:59 Pain Review of Systems ROS Status of ROS 10 or more systems reviewed and unremark able except as noted in history and below [facility] Social History Little interest or pleasure in doing things: not at all Feeling down, depressed, or hopeless: not at all Exam Narrative Exam Narrative: Prior to examining the patient, I have washed with hospital approved and provided Antiseptic Hand Ingot Buggy Operator and have also applied gloves.? Prior to touching the patient, I asked for consent to examine the patient.? General: Alert and oriented, well nourished, mild distress. Eye: PERRL, EOMI, normal conjunctiva. HENT: Normocephalic, normal hearing, moist oral mucosa, no scleral icterus Lungs: Clear to auscultation and percussion, non-labored respiration. Heart: Normal rate, regular rhythm, no murmur, gallop or edema. Abdomen: Soft, non-tender, non-distended, normal bowel sounds, no masses. Musculoskeletal: Normal range of motion and strength, no tenderness or swelling. Skin: Skin is warm, dry and pink, no rashes or lesions. Neurologic: Awake, alert, and oriented X3, CN II-XII intact. Psychiatric: Cooperative, appropriate mood and affect.? Following the conclusion of the examination, I have washed my hands thoroughly after removing examination gloves. Constitutional Vital Signs, click to edit/add: Last Vital Signs Temp 99.2 F 10/03/24 19:00 Pulse 84 10/03/24 19:00 Resp 18 10/03/24 19:00 BP 133/87 10/03/24 19:00 Course Course Hospital Course: The patient self admits that she used to have an opiate problem and does not want to take any medications that would compromise her sobriety. Patient does consent to receiving Toradol intramuscularly. Reevaluation(s) Reevaluation #1: Discussion with the patient about follow-up. Patient has no questions. She is told if the bleeding is more than 1 pad an hour she needs to return otherwise she will get her quantitative hCG checked again in 3 days. Time: 22:33 Vital Signs Vital signs: Vital Signs Temperature 99.2 F 10/03/24 19:00 Pulse Rate 84 10/03/24 19:00 Respiratory Rate 18 10/03/24 19:00 Blood Pressure 133/87 10/03/24 19:00 Temperature 99.2 F 10/03/24 19:00 Pulse Rate 84 10/03/24 19:00 Respiratory Rate 18 10/03/24 19:00 Blood Pressure 133/87 10/03/24 19:00 MDM - Abdominal Pain MDM Narrative Medical decision making narrative: Patient's presenting to the emergency department today for heavy painful bleeding. Patient is concerned she had a miscarriage. Patient's going to receive blood work including a quantitative hCG to definitively determine whether or not the patient was . No imaging is warranted at this time. If her quantitative hCG is elevated then I will obtain a ultrasound to make sure that the patient does not have a ruptured ectopic . Quantitative hCG was positive. Ultrasound was performed. No evidence of intrauterine there was no evidence of ectopic . Patient will not need RhoGAM as she is a positive blood type. Patient will need to get her quantitative hCG redrawn. Patient remains in pain but does again reiterate she does not want anything stronger because she is a former addict Differential Diagnosis Differential diagnosis: Likely abdominal pain, acute appendicitis, calculus of kidney, constipation, diverticulitis, endometriosis, gastroenteritis, pancreatitis and small bowel obstruction Medical Records Attestation: I reviewed the patient's medical records. Lab Data Attestation: I reviewed the patient's lab results. Labs: Lab Results 10/03/24 10/03/24 Range/Units 19:15 19:35 WBC 6.6 (4.0-11.0) 10^3/uL RBC 4.27 (4.20-5.40) 10^6/uL Hgb 13.1 (12.0-16.0) g/dL Hct 37.9 (36.0-48.0) % MCV 88.8 (81.0-99.0) fL MCH 30.7 (26.7-34.0) pg MCHC 34.6 (29.9-35.2) g/dL RDW 12.5 (11.0-15.0) % Plt Count 241 (150-450) 10^3/uL MPV 11.4 (9.5-13.5) fL Neut % (Auto) 40.7 L (43.0-75.0) % Lymph % (Auto) 50.5 (20.5-60.0) % [place]urel % (Auto) 7.0 (1.7-12.0) % Eos % (Auto) 0.9 (0.9-7.0) % Baso % (Auto) 0.6 (0.2-2.0) % Neut # (Auto) 2.7 (1.4-6.5) 10^3/uL Lymph # (Auto) 3.3 (1.2-3.8) 10^3/uL Laurel # (Auto) 0.5 (0.3-0.8) 10^3/uL Eos # (Auto) 0.1 (0.0-0.7) 10^3/uL Baso # (Auto) 0.0 (0.0-0.1) 10^3/uL Abs Immat Gran (auto) 0.02 (0.00-0.03) 10^3/uL Imm/Tot Granulo (auto) 0.3 (0.0-0.5) % Sodium 141 (136-145) mmol/L Potassium 3.6 (3.5-5.1) mmol/L Chloride 105 (98-107) mmol/L Carbon Dioxide 24.8 (21.0-32.0) mmol/L Anion Gap 14.8 BUN 8.0 (7.0-18.0) mg/dL Creatinine 0.66 (0.55-1.02) mg/dL Est GFR ( Amer) >60 (>=60 mL/min/1.73m^2) Est GFR (Non-Af Amer) >60 (>=60 mL/min/1.73m^2) BUN/Creatinine Ratio 12.1 Glucose 89 (74-106) mg/dL Lactate 1.0 (0.4-2.0) mmol/L Calcium 8.9 (8.5-10.1) mg/dL HCG, Quant 703 mIU/mL Urine Color Red A (YELLOW) Urine Clarity Cloudy A (CLEAR) Urine pH 7.0 (5.0-9.0) Ur Specific [place] 1.020 (1.005-1.025) Urine Protein 30 A (NEG/TRACE) mg/dL Urine Glucose (UA) Negative (NEGATIVE) mg/dL Urine Ketones Negative (NEGATIVE) mg/dL Urine Occult Blood Large A (NEGATIVE) Urine Nitrite Negative (NEGATIVE) Urine Bilirubin Negative (NEGATIVE) Urine Urobilinogen 1.0 (0.2-1.0) EU/dL Ur Leukocyte Esterase Negative (NEGATIVE) Urine RBC >100 A (0-2) #/HPF Urine WBC 0-2 A (NONE SEEN) #/HPF Ur Squamous Epith Cells Few A (NONE/RARE) #/LPF Urine Crystals None seen (None Seen) #/HPF Urine Bacteria Trace A (NONE SEEN) #/HPF Urine Casts None seen (NONE SEEN) #/LPF Urine Mucus None seen (NONE SEEN) Ur Culture Indicated? No Blood Type A Positive Antibody Screen Negative Imaging Data US - abdomen: Radiologist's impression: ITS Impressions Transvaginal US 10/03/24 20:25 IMPRESSION: No evidence of intrauterine at this time. Recommend follow-up quantitative beta-hCG levels in 48 hours. If it increases, consider follow-up ultrasound. Impression dictated by: Fran Gonsalez M.D. 10/03/2024 9:36 PM Dictation Location: [place] [address] Electronically authenticated by: [id number] Y Date: 10/03/2024 21:36 Discharge Plan Discharge Chief Complaint: Abdominal Pain Clinical Impression: Hemorrhage affecting in first trimester Patient Disposition: Home, Self-Care Time of Disposition Decision: 22:35 Condition: Good Mode of Transportation: Private Vehicle Prescriptions / Home Meds: No Action No Known Home Medications Print Language: Barbadian Instructions: Threatened Miscarriage (ED) Additional Instructions: Thank you for trusting me with your care today. Please make sure you are following up to get a repeat quantitative hCG in 3 days. If the level is going down we know for certain you are miscarrying. If the bleeding gets more than 1 pad an hour you must return to the ER. He feels symptomatic such as dizzy or lightheaded also please return to the ER. Thank you for your time and patience today. Referrals: Physician,Non-Staff, MD [Primary Care Provider] - 1 week
--- NOTE | 2024-10-03 19:13 | PC.NURSE ---
Patient reports having heavy bright red vaginal bleeding, and lower abdominal cramping.
[2024-10-03 19:21] LABS: Glucose Urine UA NEGATIVE (NEGATIVE)
[2024-10-03 19:24] LABS: Cast Seen? NONE SEEN #/LPF (NONE SEEN); Crystals Seen? None Seen #/HPF (None Seen)
[2024-10-03 19:26] LABS: Urine Culture Indicated NO
[2024-10-03] MEDS: KETOROLAC TROMETHAMINE 30 MG/ML VIAL 15 MG IM (19:34)
[2024-10-03 19:41] LABS: Hematocrit 37.9 % (36.0-48.0); Hemoglobin 13.1 g/dL (12.0-16.0); Immature Granulocytes Abs Auto 0.02 10^3/uL (0.00-0.03); Immature Granulocytes Pct Auto 0.3 % (0.0-0.5); Lymphocytes Absolute Auto 3.3 10^3/uL (1.2-3.8); Mean Corpuscular HGB Conc 34.6 g/dL (29.9-35.2); Mean Corpuscular Hemoglobin 30.7 pg (26.7-34.0); Mean Corpuscular Volume 88.8 fL (81.0-99.0); Platelet Count 241 10^3/uL (150-450); Red Blood Count 4.27 10^6/uL (4.20-5.40); White Blood Count 6.6 10^3/uL (4.0-11.0)
[2024-10-03 19:58] LABS: Lactate/Lactic Acid 1.0 mmol/L (0.4-2.0)
[2024-10-03 20:01] LABS: Anion Gap 14.8; Blood Urea Nitrogen 8.0 mg/dL (7.0-18.0); Calcium 8.9 mg/dL (8.5-10.1); Carbon Dioxide 24.8 mmol/L (21.0-32.0); Chloride 105 mmol/L (98-107); Estimated GFR (African America >60 (>=60 mL/min/1.73m^2); Estimated GFR (Non-African Ame >60 (>=60 mL/min/1.73m^2); Glucose 89 mg/dL (74-106); Potassium 3.6 mmol/L (3.5-5.1); Sodium 141 mmol/L (136-145)
--- NOTE | 2024-10-03 20:25 | US_ITS ---
The [address] [address] Patient Name: ISIS EAGLE MRN: [id number] date: 1995 Sex: F Assigned Patient Location: ER Current Patient Location: ER Accession/Order Number: [id number] Exam Date: 10/03/2024 21:32 Report Date: 10/03/2024 21:36 At the request of: PATRICK DAWN DO Procedure: US OB transvaginal Transvaginal pelvic ultrasound INDICATION: Vaginal bleeding FINDINGS: Anteverted uterus. No gestational sac, yolk sac and pole or cardiac activity visualized. Right left ovaries are normal size 2.3 x 1.9 x 1.6 cm and 4.5 x 2.0 x 2.3 cm in size respectively.. Possible left-sided corpus luteal cyst Unremarkable vascularity both ovaries. US/US OB transvaginal IMPRESSION: No evidence of intrauterine at this time. Recommend follow-up quantitative beta-hCG levels in 48 hours. If it increases, consider follow-up ultrasound. Impression dictated by: Fran Gonsalez M.D. 10/03/2024 9:36 PM Dictation Location: [place] [address] Electronically authenticated by: [id number] Y Date: 10/03/2024 21:36
[2024-10-03 22:43] VITALS: BP 111/79; PULSE 60; O2SAT 99
== END 2024-10-03 22:45 | disposition home or self-care (01) ==
PROVIDERS: Emergency Provider Emergency Medicine
DX: O46.91 Antepartum hemorrhage, unspecified, first trimester (principal); N94.6 Dysmenorrhea, unspecified
CPT/HCPCS: 36415; 76817; 80048; 81001; 83605; 84702; 85025; 86850; 86900; 86901; 96372; 99285; J1885

== ENCOUNTER 2025-02-28 10:33 | Emergency (ER) | payer OTHER, SELFPAY ==
[2025-02-28 10:37] VITALS: BP 140/84; PULSE 98; TEMP 36.7; O2SAT 100; BMI 21.3
--- NOTE | 2025-02-28 10:41 | XR_ITS ---
The [address] [address] Patient Name: ISIS EAGLE MRN: [id number] date: 1995 Sex: F Assigned Patient Location: ER Current Patient Location: Accession/Order Number: [id number] Exam Date: 02/28/2025 11:00 Report Date: 02/28/2025 11:56 At the request of: LUISA PATE MD Procedure: XR shoulder RT min 2V 3 views of the right shoulder CLINICAL HISTORY: Pain posterior COMPARISON: None FINDINGS: No fracture or dislocation. Minimal AC joint spurring. XR/XR shoulder RT min 2V IMPRESSION: No acute bony process. Impression dictated by: Fran Gonsalez M.D. 02/28/2025 11:56 AM Dictation Location: [place] [address] Electronically authenticated by: [id number] Y Date: 02/28/2025 11:56
--- NOTE | 2025-02-28 10:42 | ED.GENADUL1 ---
HPI HPI - General Adult General Chief complaint: Extremity Problem, Nontraumatic Stated complaint: R SHOULDER PAIN Time Seen by Provider: 02/28/25 10:39 Source: patient Mode of arrival: walk-in Limitations: no limitations History of Present Illness HPI narrative: 29-year-old female presented to the emergency department for right shoulder pain. She states a few days ago she was stretching and she had sudden onset of severe pain. She points to the scapular area. She is right-handed. She did not fall onto it. No pain in the left shoulder. It hurts more to move it. Related Data Previous Rx's ?Medication ?Instructions ?Recorded ibuprofen 800 mg tablet 800 mg PO Q8H PRN pain #20 tabs 02/28/25 Allergies Allergy/AdvReac Type Severity Reaction Status Date / Time amoxicillin Allergy Severe Hives Verified 02/28/25 10:37 aspirin Allergy Severe Hives Verified 02/28/25 10:37 trazodone Allergy Abdominal Verified 02/28/25 10:37 Pain Opioid HPI Opioid Management Most Recent Opioid Data: Last Pain Scale 8 Today, 10:37 Ur Phencyclidine Scrn, (NEGATIVE) Negative 04/18/24, 16:10 Review of Systems ROS Narrative A ten point review of systems is negative except as noted above. PFSH PFSH Social History Little interest or pleasure in doing things: not at all Feeling down, depressed, or hopeless: not at all Exam Narrative Exam Narrative: Nurses note and vital signs reviewed General:The patient appears uncomfortable. Skin:Warm, dry, no pallor noted.There is no rash noted. Head:Normocephalic, atraumatic Eye: Normal conjunctiva, no drainage Ears, Nose, Mouth, and Throat: oral mucosa is moist. Nares patent. Cardiovascular:Regular Rate and Rhythm Respiratory:Patient is in no distress, no accessory muscle use, lungs are clear to auscultation, no wheezing, rales or rhonchi Back:non-tender GI: Soft and nontender Musculoskeletal: The right shoulder is examined. There is no deformity. She has some tenderness posteriorly. No bruise or rash. Radial pulse 2+. Right elbow and wrist are nontender. Neurological:A&O, normal speech Psychiatric:Cooperative Constitutional Vital Signs, click to edit/add: Last Vital Signs Temp 98.1 F 02/28/25 10:37 Pulse 98 H 02/28/25 10:37 Resp 18 02/28/25 10:37 BP 140/84 02/28/25 10:37 Pulse Ox 100 02/28/25 10:37 O2 Del Method Room Air 02/28/25 10:37 Course Vital Signs Vital signs: Vital Signs Temperature 98.1 F 02/28/25 10:37 Pulse Rate 98 H 02/28/25 10:37 Respiratory Rate 18 02/28/25 10:37 Blood Pressure 140/84 02/28/25 10:37 Pulse Oximetry 100 02/28/25 10:37 Oxygen Delivery Method Room Air 02/28/25 10:37 Temperature 98.1 F 02/28/25 10:37 Pulse Rate 98 H 02/28/25 10:37 Respiratory Rate 18 02/28/25 10:37 Blood Pressure 140/84 02/28/25 10:37 Pulse Oximetry 100 02/28/25 10:37 Oxygen Delivery Method Room Air 02/28/25 10:37 Medical Decision Making MDM Narrative Medical decision making narrative: X-ray of the shoulder on my interpretation shows no acute findings. She is placed in sling, application checked by me and found to be appropriate, she is neurovascularly intact. She was prescribed ibuprofen. Treatment diagnosis and follow-up were discussed with the patient. Differential Diagnosis Differential Diagnosis: Shoulder sprain, shoulder strain, fracture, tendinitis Imaging Data Right shoulder x-ray: My impression: No acute findings Discharge Plan Discharge Chief Complaint: Extremity Problem, Nontraumatic Clinical Impression: Sprain of right shoulder Patient Disposition: Home, Self-Care Time of Disposition Decision: 11:23 Condition: Good Mode of Transportation: Private Vehicle Prescriptions / Home Meds: New ibuprofen 800 mg tablet 800 mg PO Q8H PRN (Reason: pain) Qty: 20 0RF Print Language: Kazakh Instructions: Shoulder Sprain (ED) Referrals: Physician,Non-Staff, [Primary Care Provider] - 1 week Juancho Torres MD [Physician, Orthopedics] - 1 week
--- OUTSIDE RECORDS SUMMARY | 2025-02-28 11:14 | XMS_ITS | CCD ---
Author Organization [facility] CliniSymi Care Team Providers Care Superintendent Service Name Role Phone DR VERÓNICA MANUEL Admitting [...] Rosita Primary Care Provider Daksha Darling Unavailable Rosita Alex MD Primary Care Provider ROSITA ALEX Primary Care Unavailable MANDI CLEMENTS Attending Unavailable NO FAMILY, PHYSICIAN Primary Care Provider Unava ilable DO Jourdan Sylvester Emergency Provider [phone] [facility], Services Primary Care Provider JOSELYN Chairez Attending Provider DO Kamar Kraus Emergency Provider NO FAMILY, PHYSICIAN Primary Care Unavailable Jourdan Sylvester Admitting Unavailable Jourdan Sylvester Attending Unavailable [facility], Services Primary Care UnavailSushila Marquis Admitting Unavailable Sushila Chairez Attending Unavailable Kamar Kraus Admitting Unavailable Kamar Kraus Attending Unavailable [facility], Services Primary Care Unavaila ble NO FAMILY, PHYSICIAN Primary Care Provider DO Jourdan Morton Emergency Provider SHILA CHEEMA S Admitting Unavailable ANETTESHILA ESCALANTE S Attending Unavailable REENA DIAMOND Primary Care Unavailable Unavailable Primary Care Provider Unavailabl e None, None Primary Care Provider Unavailabl e EMILY, JERSON S Admitting Unavailable EMILYCELI MARTÍNEZHRYN S Attending Unavailable NONE, NONE Primary Care Unavailable NONE, NONE Primary Care Unavailable POOL, ISABELLA E Referring Unavailable NONE, NONE Primary Care Unavailable POOL, ISABELLA E Referring Unavailable POOL, ISABELLA E Referring Unavailable POOL, ISABELLA E Referring Unavailable NONE, NONE Primary Care Unavailable D'ABRZULEIKA TARIK Admitting Unavailable D'ABRZULEIKA TARIK Attending Unavailable NONE, NONE Primary Care Unavailable POOL, ISABELLA E Admitting Unavailable POOL, ISABELLA E Attending Unavailable NONE, NONE Primary Care Unavailable Allergies Allergy ClassificationReported Allergen(s)Allergy TypeDate of OnsetReaction(s) Facility (5 sources)Amoxicillin; Translations: [AMOXICILLIN]Drug Xcjvrpb40-59-5399Kqxum, nausea/vomitting[facility] (6 sources)Aspirin; Translations: [ASPIRIN]Drug Recjwfa60-05-3328Hcqktbiz, nausea/vomittingThe [facility] Repository (6 sources)Aluminum aspirinDrug Hwqzhjp13-60-4341HxrjmJRARussell County Medical Center Work Phone: (7 sources)AmoxicillinDrug Gteeaju35-34-2771njwscj/vomitting[facility] (1 source)AspirinDrug Allergynausea/vomitting[facility] Other (1 source)AmoxicillinDrug Vofqvzi70-57-7355SyrhekmkbOhiohealth [facility] Repository (1 source)AspirinDrug Xbocxxd05-17-3352FuufkyojlOhiohealth Van Wert Hospital Repository (4 sources)traZODoneDrug Uykdvbg28-86-7365QJZ [facility] Medications Current Medications MedicationDrug Class(es)DatesSig (Normalized)Sig (Original)benzocaine 200 mg/ml / menthol 5 mg/ml topical spray (1 source)Standardized Chemical AllergenStart: 03-29-5728Gyoqghq, PRN, Pain, Starting on Sun05/16/24 at 1925, Apply to perineal area. Patient is capable and may self administer at bedside., Postpartum1 ml carboprost 0.25 mg/ml injection (1 source)Prostaglandin AnalogStart: 12-00-2596umubqpaymknw 3 mg / ethinyl estradiol 0.02 mg oral tablet (1 source)Progestin, EstrogenStart: 07-28-2021 End: 57-67-8540tclq 1 tablet by mouth once daily, then take 3 tablets by mouth oncedrospirenone-ethinyl estradiol (CHASTITY) 3-0.02 MG per tablet Indications: Oral contraception initial prescription Take 1 tablet by mouth daily 28 tablet 2 07/28/2021 10/26/2021 Activeescitalopram 5 mg oral tablet (14 sources)Serotonin Reuptake InhibitorStart: 27-51-1338Xdosu: 05-06-2023 End: 20-38-8690regx 20 mg by mouth once dailyEscitalopram Oxalate Discontinued 20 MG PO Daily May 06, 2023 1:00am May 30, 2023 4:45pmStart: 67-22-4683hzze 1 tablet by mouth once dailyescitalopram (LEXAPRO) 20 MG tablet Indications: Current moderate episode of major depressive disorder, unspecified whether recurrent (HCC) Take 1 tablet by mouth daily 90 tablet 4 11/13/2022 ActiveStart: 07-02-2019 End: 66-84-8202vhey 10 mg by mouth once dailyEscitalopram Oxalate Discontinued 10 MG PO Daily November 19, 2019 11:00pm May 06, 2023 12:17am etonogestrel 68 mg drug implant (2 sources)ProgestinStart: 89-17-1972dyzbvzuqzopv (NEXPLANON) implant 68 mg etonogestrel (NEXPLANON) 68 MG implant 68 mg by Subdermal route once 0 Active lanolin 1000 mg/ml topical cream (1 source)Start: ml methylergonovine maleate 0.2 mg/ml injection (2 sources)Ergot DerivativeStart: 05-16-2024 End: 71-22-9577mnMAGCGIxbb 0.1 mg oral tablet (2 sources)Prostaglandin E1 AnalogStart: 15-67-0573Bkyiq: 39-67-7582oouyafmni hydrochloride 5 mg oral tablet (2 sources)Start: 63-50-7607mpui 5 mg by mouth four times dailyMolindone Active 5 MG PO Four times daily May 30, 2023 1:00ammupirocin 0.02 mg/mg topical ointment (1 source)RNA Synthetase Inhibitor AntibacterialStart: 52-39-2994Afsdpglrc 2 % 1 application to affected area Externally 2 times a day for 7 days May, Activeondansetron (ZOFRAN-ODT) disintegrating tablet 4 mg (1 source)Start: 59-47-9458oalqjiaqdla (ZOFRAN-ODT) disintegrating tablet 4 mg Vit-Fe Fumarate-FA ( 19 PO) (4 sources) Vit-Fe Fumarate-FA ( 19 PO) Take by mouth Active Vit-Fe Fumarate-FA ( 19 PO) Take by mouth 0 Active5 ml sodium chloride 9 mg/ml injection (1 source)Start: 82-18-6162dbvigxaddid 4 mg/ml vaginal cream (1 source)Azole AntifungalStart: 05-13-2024 End: 47-23-5129aqbaooakrbk (TERAZOL 7) 0.4 % vaginal cream Place one applicator full vaginally nightly for 7 nights 1 each 05/13/2024 05/18/2024 Discontinued (Stop Taking at Discharge)witch lisha 500 mg/ml medicated pad (1 source)Start: 03-39-0339Efscgah, PRN, Hemorrhoids, Starting on Sun05/16/24 at 1925, Apply to perineal area. Patient is capable and may self administer at bedside., Completed/Discontinued Medications MedicationDrug Class(es)DatesSig (Normalized)Sig (Original)acetaminophen 500 mg oral tablet (6 sources)Start: ,000 mg, Oral, EVERY 8 HOURS PRN, Starting on Sun05/16/24 at 1925, Until Discontinued, Pain Mild (1-3), Allowed for higher pain score per patient request, Maximum dose of acetaminophen is 4000mg from all sources in 24 hours. Alternate ibuprofen and acetaminophen every 4 hours., PostpartumStart: 01-25-2022 End: 10-49-3607rlgncaixuknui (TYLENOL) tablet 650 mg End: 85-08-1770zdoc 2 tablets by mouth every six hours as needed for pain acetaminophen (TYLENOL) 325 MG tablet Take 2 tablets by mouth every 6 hours as needed for Pain 05/18/2024 Discontinued (Stop Taking at Discharge)calcium chloride 0.0014 meq/ml / potassium chloride 0.004 meq/ml / sodium chloride 0.103 meq/ml / sodium lactate 0.028 meq/ml injectable solution (1 source)Start: 05-16-2024 End: 09-99-3429GyxruJQYeip, at 75 mL/hr, CONTINUOUS, Starting on Sun05/16/24 at 1200, After epidural bolus given, infuse LR at 75mL/hr, Labor and Delivery cefdinir 300 mg oral capsule (2 sources)Cephalosporin AntibacterialStart: 05-30-2023 End: 94-97-5682sorm 300 mg by mouth every twelve hoursCefdinir Discontinued 300 MG PO Every 12 hours 12 01May 30, 2023 1:00am June 21, 2023 7:38pm docusate sodium 100 mg oral capsule (1 source)Start: 12-37-3986boal 100 mg by mouth twice daily as vgemxe126 mg, Oral, 2 TIMES DAILY PRN, Starting on Sun05/16/24 at 1925, Until Discontinued, Constipation,Do not crush or break., Postpartumdoxycycline hyclate 100 mg oral capsule (4 sources)Tetracycline-class DrugStart: 05-06-2023 End: 09-06-7820bzay 100 mg by mouth twice dailyDoxycycline Hyclate Discontinued 100 MG PO Twice daily 06 10May 06, 2023 1:00am May 30, 2023 4:45pm Start: 72-06-6452glsk 1 capsule by mouth every twelve hoursDoxycycline Monohydrate 100 MG 1 capsule Orally every 12 hrs for 7 days May, Active ibuprofen 800 mg oral tablet (4 sources)Nonsteroidal Anti-inflammatory DrugStart: 30-68-8645374 mg, Oral, EVERY 8 HOURS SCHEDULED (3 times per day), First dose on Sun05/16/24 at 2200, Until Discontinued, Once tolerating PO, discontinue Ketorolac and begin ibuprofen 8 hours after the final dose of Ketotolac. Alternate ibuprofen and acetaminophen every 4 hours., PostpartumStart: 34-17-1686cmiy 1 tablet by mouth every six hours as needed for painibuprofen (IBU) 600 MG tablet Take 1 tablet by mouth every 6 hours as needed for Pain 25 tablet 0 03/02/2023 ActiveStart: 11-22-9115sevd 1 tablet by mouth every eight hours as needed for painibuprofen (IBU) 800 MG tablet Take 1 tablet by mouth every 8 hours as needed for Pain 20 tablet 0 01/25/2022 ActiveStart: 08-29-2021 End: 03-19-6134maqq 1 tablet by mouth four times daily as needed for pain ibuprofen (ADVIL;MOTRIN) 600 MG tablet Indications: Muscle strain of left upper back, initial encounter Take 1 tablet by mouth 4 times daily as needed for Pain 40 tablet 0 08/29/2021 01/25/2022 Discontinued (Therapy completed)1 ml ketorolac tromethamine 30 mg/ml cartridge (2 sources)Nonsteroidal Anti-inflammatory Drug, Cyclooxygenase InhibitorStart: 01-25-2022 End: 90-65-3606cyewowrau (TORADOL) injection 30 mgStart: 08-23-2021 End: 50-65-1143ggeughqwe (TORADOL) injection 30 mgnaltrexone hydrochloride 50 mg oral tablet (3 sources)Opioid AntagonistStart: 11-20-2019 End: 85-61-3609nvgh 50 mg by mouth once dailyNaltrexone Discontinued 50 MG PO Daily November 20, 2019 12:00am May 06, 2023 1:17amnicotine 2 mg chewing gum (6 sources)Cholinergic Nicotinic AgonistStart: 07-02-2019 End: 23-16-4330Wkvqgcbo (Polacrilex) Discontinued 2 MG BUCCAL Q2H November 19, 2019 11:00pm May 062:17amondansetron 4 mg disintegrating oral tablet (2 sources)Serotonin-3 Receptor AntagonistStart: 01-25-2022 End: 43-59-4821guvojlrxlfm (ZOFRAN-ODT) disintegrating tablet 4 mgoxytocin (PITOCIN) 30 units in 500 mL infusion (2 sources)Start: 05-16-2024 End: -24 maryellen-units/min (1-24 mL/hr), IntraVENous, CONTINUOUS, Starting on Sun05/16/24 at 1200, Until Sun05/16/24 at 1925, Begin infusion at 1 maryellen-unit/min (1 maryellen-unit per min = 1 mL per hour) . Then increase by 2 maryellen-units/min as needed, no faster than every 30 minutes, until labor is achieved.Labor is defined as contractions every 2-3 minutes with cervical changes or [place] units (MVU) greater than 200 in a [...] At time of needed increase, Labor and DeliveryStart: maryellen-units/min (166 mL/hr), IntraVENous, PRN, 1 dose, Starting on Sun05/16/24 at 1127, Until Discontinued, Bleeding, For Post Use Only. Give after delivery of placenta. Following Bolus from bag administration, reduce the rate to 166 mL/hr and administer remaining bag prazosin 1 mg oral capsule (6 sources)alpha-Adrenergic BlockerStart: 07-02-2019 End: 72-02-8453vtzs 1 mg by mouth once daily at bedtimePrazosin Discontinued 1 MG PO Daily at bedtime November 19, 2019 11:00pm May 06, 2023 1 2:17amQUEtiapine 25 mg oral tablet (9 sources)Atypical AntipsychoticStart: 11-20-2019 End: 93-91-4123xsjq 25 mg by mouth once dailyQuetiapine Discontinued 25 MG PO Daily November 20, 2019 12:00am May 06, 2023 1:17amStart: 07-02-2019 End: 15-94-3834zorr 50 mg by mouth once daily at bedtimeQuetiapine Discontinued 50 MG PO Daily at bedtime November 19, 2019 11:00pm May 06, 2023 12:17am Problems Active Problems Problem ClassificationProblemDateDocumented DateEpisodic/ChronicAbdominal pain (7 sources)Lower abdominal pain; Translations: [Lower abdominal pain, unspecified]Onset: 95-29-7217OsnvievfKbxrzsdl reactions (2 sources)Allergy to amoxicillin; Translations: [Allergy status to penicillin] Onset: 499817-82-3849YdluzzzxHlbuwth disorders (3 sources)Posttraumatic stress disorder; Translations: [Post-traumatic stress disorder, unspecified]23-62-5064SmzdyreAshsm or threatened labor (4 sources)Finding of uterine contractions; Translations: [False labor, unspecified]Onset: 968424-93-8668JdyqpijwScjfb and electrolyte disorders (3 sources)Hypokalemia; Translations: [Hypokalemia]21-71-8700Bkhqwrkn Genitourinary symptoms and ill-defined conditions (1 source)Personal history of urinary (tract) infections; Translations: [PERS HX URINARY TRACT INFECTIONS]Onset: 54-75-5961FvpneqreEvhmrbsb; including migraine (1 source)Migraine, unspecified, not intractable, without status migrainosus; Translations: [MIGRAINE UNS NOTINTRACT W/O SM]Onset: 57-52-7087FssatttUeecaaej; including migraine (3 sources)Headache; including migraine; Translations: [HEADACHE UNSPECIFIED] Onset: 41-72-7529Nqsmkarquvelo and screening for infectious disease (3 sources)Patient encounter status; Translations: [Encounter for screening for infections with a predominantly sexual mode of transmission]Onset: 11-21-2023 15-45-4010ZrkrqwiyDzstsamqi disorders (6 sources)Amenorrhea; Translations: [Amenorrhea, unspecified]Onset: 08-29-2022 Resolved: 531883-11-6845TuoukadHcfn disorders (7 sources)Recurrent major depression; Translations: [Major depressive disorder, recurrent, unspecified]Onset: 469075-83-5691QapuxslUonot complications of (2 sources) distress affecting management of mother; Translations: [Maternal care for abnormalities of the heart rate or rhythm, unspecified trimester, not applicable or unspecified]Onset: 042796-60-2913Ruzldwrd Other complications of (2 sources)Maternal care for abnormalities of the heart rate or rhythm, unspecified trimester, not applicable or unspecified; Translations: [Maternal care for abnormalities of the heart rate or rhythm, unspecified trimester, not applicable or unspecified]Onset: 02-58-6803OsvxntbcAwyzy ear and sense organ disorders (1 source)Other infective otitis externa, left ear; Translations: [Other infective otitis externa, left ear]Onset: 04-83-3608TajnuczfQdpup female genital disorders (1 source)Pruritus of vagina; Translations: [Other specified noninflammatory disorders of vagina]38-81-2334MxvqofsqVfsee female genital disorders (1 source)Other specified noninflammatory disorders of vagina; Translations: [Other specified noninflammatorydisorders of vagina]Onset: 65-35-7983Mgxpoqkn Other non-traumatic joint disorders (1 source)Pain in left shoulder; Translations: [Pain in left shoulder]Onset: 06-32-3383DhzqbvhuLisbc upper respiratory infections (3 sources)Sinusitis; Translations: [Chronic sinusitis, unspecified]05-14-2023 ChronicOther upper respiratory infections (6 sources)Acute upper respiratory infection, unspecified; Translations: [Acute bacterial pharyngitis]Onset: 670449-73-3075FssdjasfCigypmovtbz disorders (4 sources)Borderline personality disorder; Translations: [Borderline personality disorder]Onset: 653721-55-9969PyrcufySsgcgktw codes; unclassified (3 sources)History of premature rupture of membranes; Translations: [Personal history of other complications of , childbirth and the puerperium]Onset: 433609-51-4877PgzhybnlUvpvpglr codes; unclassified (1 source)Gestation period, 36 weeks; Translations: [36 weeks gestation of ]24-45-6391BdhrxlinTrszaboa codes; unclassified (1 source)33 weeks gestation of ; Translations: [33 weeks gestation of ]Onset: 75-75-7323UmgndvshBangivnx codes; unclassified (2 sources)Gestation period, 37 weeks; Translations: [37 weeks gestation of ]Onset: 365779-02-2832KtxtvusiCyrcwyng codes; unclassified (1 source)36 weeks gestation of ; Translations: [36 weeks gestation of ]Onset: 21-46-9264MrbroflqQptttnhasjfen and other psychotic disorders (3 sources)Schizoaffective disorder; Translations: [Schizoaffective disorder, unspecified]36-05-7052UmcpkexIkjqnuvah-related disorders (8 sources)Nicotine dependence, cigarettes, uncomplicated; Translations: [Methamphetamine abuse]Onset: 447228-89-5631MhenvqtXnlwntwpqcil (2 sources)COUGH, UNSPECIFIED; Translations: [COUGH, UNSPECIFIED]Onset: 90-00-9028Olpbodfdxfee (1 source)CONTACT W/AND (SUSP) EXPOS COVID-19; Translations: [CONTACT W/AND (SUSP) EXPOS COVID-19]Onset: 99-97-9902Zhczh infection (1 source)COVID-19; Translations: [Other specified viral infection]Episodic Past or Other Problems Problem ClassificationProblemDateDocumented DateEpisodic/ChronicCancer of cervix (7 sources)Low grade squamous intraepithelial lesion on cervical Papanicolaou smear; Translations: [Low grade squamous intraepithelial lesion on cytologic smear of cervix (LGSIL)]Onset: 091881-15-5983MilpdhhqIjekwlaipk associated with dizziness or vertigo (8 sources)Dizziness and giddiness; Translations: [Dizziness]Onset: 07-09-2020 Resolved: 06-31-5571GdtgsdpxWtrfgbwlixnys and procreative management (4 sources)Subcutaneous contraceptive implant present; Translations: [Presence of (intrauterine) contraceptivedevice]Onset: 08-29-2022 Resolved: 281767-17-5890KzksckuiW Codes: Fall (1 source)Fall (on) (from) other stairs and steps, initial encounter; Translations: [FALL ON FROM OTH STAIRS STEPS INIT]Onset: 88-86-0485GxikfmmtBavsu of unknown origin (1 source)Fever, unspecified; Translations: [FEVER UNSPECIFIED]Onset: 07-12-2020 EpisodicOther connective tissue disease (3 sources)Pain in right foot; Translations: [PAIN IN RIGHT FOOT]Onset: 33-62-3452KoyozfakKlyhc connective tissue disease (4 sources)Disorder of shoulder; Translations: [Other muscle spasm]Onset: 11-13-2022 Resolved: 469894-95-4979DfpogspnSvrwm and delivery including normal (6 sources)Normal ; Translations: [Encounter for supervision of other normal , first trimester]Onset: 720747-05-7780RbfvpkppWvyok screening for suspected conditions (not mental disorders or infectious disease) (1 source)Encounter for screening for malignant neoplasm of cervix; Translations: [Encounter for screening for malignant neoplasm of cervix]Onset: 84-27-5912WmmlfyhqDdmwluru codes; unclassified (4 sources)Gestation period, 33 weeks; Translations: [33 weeks gestation of ]Onset: 04-18-2024 Resolved: 990437-34-0729ZksnzcmxEonjeofz codes; unclassified (1 source)12 weeks gestation of ; Translations: [12 weeks gestation of ]Onset: 85-45-5317KsrglcqnRhwc and subcutaneous tissue infections (1 source)Cellulitis of umbilicusOnset: 06-02-2021 Resolved: 22-23-1456RintnggkZtnvczd and strains (1 source)Unspecified sprain of right foot, initial encounter; Translations: [UNSPECIFIED SPRAIN RT FOOT INITIAL]Onset: 58-19-7682VlomscfnZzsbcfx (4 sources)Syncope and collapse; Translations: [SYNCOPE AND COLLAPSE]Onset: 68-27-4582ZyywavbxJvjvcwirwmpx (1 source)COUGH, UNSPECIFIED; Translations: [COUGH, UNSPECIFIED]Onset: 40-94-4730Qkyrprf tract infections (5 sources)Urinary tract infection, site not specified; Translations: [Recurrent urinary tract infection]Onset: 07-12-2020 Resolved: 482460-28-6316Fbghsbuu Results Test NameValueInterpretationReference RangeFacilityCBC auto differentialon 19-53-9913Rbrvsljsg (Bld) [#/Vol]0.03 10*3/uLBon [facility] Basophils/100 WBC (Bld)0 %0 - 2 %[facility] HealthEosinophils (Bld) [#/Vol]0.07 10*3/uLBon Secours Mercy HealthEosinophils/100 WBC (Bld)1 %1 - 4 % [facility] HealthErythrocyte distribution width (RBC) [Ratio]14.3 %11.8 - 14.4 %[facility] HealthHematocrit (Bld) [Volume fraction]38.6 %36.3 - 47.1 %[facility] HealthHemoglobin (Bld) [Mass/Vol]12.6 g/dL11.9 - 15.1 g/dLBon Secours [facility] HealthImmature granulocytes (Bld) [#/Vol]0.04 10*3/uLBon Secours [facility] Health [facility] Hospitaly HealthImmature granulocytes/100 WBC (Bld)1 %Jsqe8Xtb [facility] HealthInterpretation and review of laboratory resultsAbnormalBon [facility] HealthLymphocytes/100 WBC (Bld)33 %24 - 43 %[facility] Lymphocytes/100 WBC (Bld)2.90 %[facility] Hospital[facility] (RBC) [Entitic mass] 28.6 pg25.2 - 33.5 pgBon Secours Premier Health [facility] Valley HospitalHC (RBC) [Mass/Vol]32.6 g/dL28.4 - 34.8 g/dLBon Secours Premier Health [facility] Valley HospitalV (RBC) [Entitic vol]87.7 fL82.6 - 102.9 fL [facility] HealthMonocytes/100 WBC (Bld)5 %3 - 12 %[facility] HealthMonocytes/100 WBC (Bld)0.46 %[facility] HealthNeutrophils/100 WBC (Bld)60 %36 - 65 %[facility] HealthNucleated RBC/100 WBC (Bld) [Ratio]0.0 %0.0 per 100 WBCBon Secours Mercy Health [facility] Hospitaly HealthPlatelet mean volume (Bld) [Entitic vol]11.8 fL8.1 - 13.5 fLBon Secours Mercy Health [facility] Hospitaly HealthPlatelets (Bld) [#/Vol]184 10*3/uLBon [facility]ours [facility] Hospitaly HealthRBC (Bld) [#/Vol]4.40 10*6/uL3.95 - 5.11 m/uLBon [facility] Memorial HospitalSegmented neutrophils/100 WBC (Bld)5.35 %[facility] HospitalWBC other (Bld) [#/Vol]8.9Bon [facility] HospitalBon [facility] CBC with Diffon 58-79-4623Gwl. Basophil0.03 k/uLNormal0.00-0.20[facility] HospitalComment on above:Performed By: #### VAGP #### [address] [address] General Milling Superintendent: Jeff Morrell MD [address] [place] [id number] General Milling Superintendent: Dimple Moyer.Imm.Granulocyte0.04 k/uLNormal0.00-0.30[facility] HospitalComment on above:Performed By: #### VAGP #### [address] [address] General Milling Superintendent: Jeff Morrell MD [address] [place] [phone] General Milling Superintendent: Dimple Moyer.Neutrophil (Seg)5.35 k/uLNormal1.50-8.10[facility], BeachwoodComment on above:Performed By: #### VAGP #### [address] [address] General Milling Superintendent: Jeff Morrell MD [address] [place] [address] General Milling Superintendent: Dmitri Galloway MDBasophils/100 WBC (Bld)0 %Normal0-2MMarion Hospital HospitalComment on above:Performed By: #### VAGP #### [address] [address] General Milling Superintendent: Jeff Morrell MD [address] [place] [address] General Milling Superintendent: Dmitri Galloway MDEosinophils (Bld) [#/Vol]0.07 10*3/uLNormal 0.00-0.44[facility], BeachwoodComment on above:Performed By: #### VAGP #### [address] [address] General Milling Superintendent: Jeff Morrell MD [address] [place] [address] General Milling Superintendent: Dmitri Galloway MDEosinophils/100 WBC (Bld)1 %Normal1-4[facility], BeachwoodComment on above:Performed By: #### VAGP #### [place] [address] General Milling Superintendent: Jeff Morrell MD [address] [place] [address] General Milling Superintendent: Dmitri Galloway MDErythrocyte distribution width (RBC) [Ratio]14.3 % Ruhglz20.8-14.4[facility], BeachwoodComment on above:Performed By: #### VAGP #### [place] [address] General Milling Superintendent: Jeff Morrell MD [address] [place] [address] General Milling Superintendent: Dmitri Galloway MDHematocrit (Bld) [Volume fraction]38.6 %Normal 36.3-47.1MUniversity Hospitals Beachwood Medical CenterComment on above:Performed By: #### VAGP #### [address] [address] General Milling Superintendent: Jeff Morrell MD [address] [place] [address] General Milling Superintendent: Dmitri Galloway MDHemoglobin (Bld) [Mass/Vol]12.6 g/dLNormal 11.9-15.1MUniversity Hospitals Beachwood Medical CenterComment on above:Performed By: #### VAGP #### [facility] [address] [place] [address] General Milling Superintendent: Jeff Morrell MD [address] [place], [place] [phone] General Milling Superintendent: Dmitri Galloway MDImmature granulocytes/100 WBC (Bld)1 %Fggh7VinlxSelect Medical Cleveland Clinic Rehabilitation Hospital, BeachwoodComment on above:Performed By: #### VAGP #### [facility] [address] [place] [address] General Milling Superintendent: Jeff Morrell MD [address] [place] [phone] General Milling Superintendent: Dmitri Galloway MDLymphocytes (Bld) [#/Vol]2.90 10*3/uLNormal 1.10-3.70[facility], BeachwoodComment on above:Performed By: #### VAGP #### [facility] [address] [place] [address] General Milling Superintendent: Jeff Morrell MD [address] [place] [phone] General Milling Superintendent: Dmitri Galloway MDLymphocytes/100 WBC (Bld)33 %Zvgafe70-07MrphuSelect Medical Cleveland Clinic Rehabilitation Hospital, BeachwoodComment on above:Performed By: #### VAGP #### [facility] [address] [place] [address] General Milling Superintendent: Jeff Morrell MD [address] [place], [place] 6295783 General Milling Superintendent: BENOIT MoyerCH (RBC) [Entitic mass]28.6 bdJubreh35.2-33.5 [facility], BeachwoodComment on above:Performed By: #### VAGP #### [facility] [address] [place] [address] General Milling Superintendent: Jeff Morrell MD [address] [place] [address] General Milling Superintendent: BENOIT MoyerCHC (RBC) [Mass/Vol]32.6 g/kLCgtkaz58.4-34.8[facility], BeachwoodComment on above:Performed By: #### VAGP #### [place] [address] [place] [address] General Milling Superintendent: Jeff Morrell MD [address] [place] [phone] General Milling Superintendent: BENOIT MoyerCV (RBC) [Entitic vol]87.7 kRFlzmwy99.6-102.9 [facility], BeachwoodComment on above:Performed By: #### VAGP #### [address] [address] General Milling Superintendent: Jeff Morrell MD [address] [place] [address] General Milling Superintendent: BENOIT Moyeronocytes (Bld) [#/Vol]0.46 10*3/uLNormal0.10-1.20 [facility], BeachwoodComment on above:Performed By: #### VAGP #### [address] [address] General Milling Superintendent: Jeff Morrell MD [address] [place] [address] General Milling Superintendent: BENOIT Moyeronocytes/100 WBC (Bld)5 %Normal3-12[facility], BeachwoodComment on above:Performed By: #### VAGP #### [address] [address] General Milling Superintendent: Jeff Morrell MD [address] [place] [phone] General Milling Superintendent: Dmitri Galloway MDNeutrophil (Seg)60 %Zflwxr85-99XoikwSelect Medical Cleveland Clinic Rehabilitation Hospital, BeachwoodComment on above:Performed By: #### VAGP #### [address] [place] [address] General Milling Superintendent: Jeff Morrell MD [address] [place], [place] 0002783 General Milling Superintendent: Dmitri Galloway MDNRBC Automated0.0 per 100 WBCNormal0.0[facility], BeachwoodComment on above:Performed By: #### VAGP #### [address] [address] General Milling Superintendent: Jeff Morrell MD [address] [place] [phone] General Milling Superintendent: Dale Moyer mean volume (Bld) [Entitic vol]11.8 fL Normal8.1-13.5[facility], BeachwoodComment on above:Performed By: #### VAGP #### [address] [address] General Milling Superintendent: Jeff Morrell MD [address] [place] [address] General Milling Superintendent: Dee Moyer (Bld) [#/Vol]184 10*3/mSXbmxhw540-214 [facility], BeachwoodComment on above:Performed By: #### VAGP #### [address] [address] General Milling Superintendent: Jeff Morrell MD [address] [place]agn[place], [facility]83 General Milling Superintendent: ANDREW Moyer (Bld) [#/Vol]4.40 10*6/uLNormal3.95-5.11[facility], BeachwoodComment on above:Performed By: #### VAGP #### [address] [address] General Milling Superintendent: Jeff Morrell MD [address] [place], [place] 0187083 General Milling Superintendent: Dmitri Galloway MDGOWANDA STATE [facility] (d) [#/Vol]8.9 10*3/uLNormal3.5-11.3MUniversity Hospitals Beachwood Medical CenterComment on above:Performed By: #### VAGP #### [address] [address] General Milling Superintendent: Jeff Morrell MD [address] [place], [place] 7421883 General Milling Superintendent: RYAN Moyershriners hospitals for children Metabolic Profon 84-74-9327Vdadifg [Mass/Vol] 3.5 g/dLNormal3.5-5.2Mdelaware county hospitaly Buckatunna HospitalComment on above:Performed By: #### VAGP #### [address] [address] General Milling Superintendent: Jeff Morrell MD [address] [place], [place] 1380283 General Milling Superintendent: Dmitri Galloway MDAlbumin/Glob Ratio1.6Oqrjfm5.0-2.5[facility], BeachwoodComment on above:Performed By: #### VAGP #### [address] [address] General Milling Superintendent: Jeff Morrell MD [address] [place], [place] 9783183 General Milling Superintendent: Steven Moyerline Prjf051 U/GGrev49-541CvkctSelect Medical Cleveland Clinic Rehabilitation Hospital, BeachwoodComment on above:Performed By: #### VAGP #### [facility] [address] [place] [address] General Milling Superintendent: Jeff Morrell MD [address] [place], [place] 6002483 General Milling Superintendent: Dmitri Sturtz, MDALT [Catalytic activity/Vol]9 U/YUlu79-90XseetSelect Medical Cleveland Clinic Rehabilitation Hospital, BeachwoodComment on above:Performed By: #### VAGP #### [address] [place] [address] General Milling Superintendent: Jeff Morrell MD [facility] [address] [place] [address] Dr. [place], [place] [phone] General Milling Superintendent: Dmitri Galloway MDAnidariela gap [Moles/Vol]12 mmol/LNormal9-16[facility], BeachwoodComment on above:Performed By: #### VAGP #### [address] [address] General Milling Superintendent: Jeff Morrell MD [address] [place] [phone] General Milling Superintendent: Dmitri Galloway MDAST [Catalytic activity/Vol]15 U/VKkmsqz27-52EjksvSelect Medical Cleveland Clinic Rehabilitation Hospital, BeachwoodComment on above:Performed By: #### VAGP #### [facility] [address] [place] [address] General Milling Superintendent: Jeff Morrell MD [address] [place] [phone] General Milling Superintendent: Dmitri Galloway MDBilirubin [Mass/Vol]mg/dLNormal0.00-1.20[facility], BeachwoodComment on above:Performed By: #### VAGP #### [address] [address] General Milling Superintendent: Jeff Morrell MD [facility] [address] [place] [address] [place] [address] General Milling Superintendent: Dmitri Galloway MDBUN/CRE Kwulm69Apxnij5-10Unqvx [facility] Comment on above:Performed By: #### VAGP #### [address] [address] General Milling Superintendent: Jeff Morrell MD [facility] [place], [place] 5479983 General Milling Superintendent: RYAN Moyeralcium [Mass/Vol]8.6 mg/dLNormal8.6-10.4[facility], BeachwoodComment on above:Performed By: #### VAGP #### [facility] [address] [place] [address] General Milling Superintendent: Jeff Morrell MD [address] [place] 5893883 General Milling Superintendent: RYAN Moyerhloride [Moles/Vol]105 mmol/XEigxgy91-251HbwlkSelect Medical Cleveland Clinic Rehabilitation Hospital, BeachwoodComment on above:Performed By: #### VAGP #### [address] [place] [address] General Milling Superintendent: Jeff Morrell MD [address] [place] 5893883 General Milling Superintendent: RYAN MoyerO2 [Moles/Vol]20 mmol/OKwfqae50-32YidjzSelect Medical Cleveland Clinic Rehabilitation Hospital, BeachwoodComment on above:Performed By: #### VAGP #### [facility] [address] [place] [address] General Milling Superintendent: Jeff Morrell MD [address] [place] [phone] General Milling Superintendent: RYAN Moyerreatinine [Mass/Vol]0.4 mg/dLLow0.50-0.90[facility], BeachwoodComment on above:Performed By: #### VAGP #### [facility] [address] [place] [address] General Milling Superintendent: Jeff Morrell MD [address] [place] [phone] General Milling Superintendent: Dmitri Galloway MDGFR/1.73 sq M.predicted among non-blacks MDRD (S/P/Bld) [Vol rate/Area]mL/min/{1.73_m2}Normal>60[facility], BeachwoodComment on above:Result Comment: These results are not intended for [...] or following therapy that affects renal tubular secretion.Performed By: #### VAGP #### [address] [address] General Milling Superintendent: Jeff Morrell MD [address] [place] [address] General Milling Superintendent: Dmitri Galloway MDGlucose [Mass/Vol]88 mg/vOMnfepw51-29YqbsjUniversity Hospitals Beachwood Medical CenterComment on above:Performed By: #### VAGP #### [address] [address] General Milling Superintendent: Jeff Morrell MD [address] [place], [facility]83 General Milling Superintendent: ROSE Moyerotassium [Moles/Vol]3.8 mmol/LNormal3.7-5.3MUniversity Hospitals Beachwood Medical CenterComment on above:Performed By: #### VAGP #### [address] [address] General Milling Superintendent: Jeff Morrell MD [address] [place] [address] General Milling Superintendent: Dmitri Galloway MDProtein [Mass/Vol]6.0 g/dLLow6.6-8.7[facility], BeachwoodComment on above:Performed By: #### VAGP #### [address] [address] General Milling Superintendent: Jeff Morrell MD [address] [place] [facility]83 General Milling Superintendent: SAMUEL Moyerodium [Moles/Vol]137 mmol/UVmszwk730-665NfhpoSelect Medical Cleveland Clinic Rehabilitation Hospital, BeachwoodComment on above:Performed By: #### VAGP #### [facility] [address] [place] [address] General Milling Superintendent: Jeff Morrell MD [facility] [address] [place] [address] General Milling Superintendent: Dmitri Galloway MDUrea nitrogen [Mass/Vol]4 mg/dLLow6-20[facility], BeachwoodComment on above:Performed By: #### VAGP #### [facility] [address] [place] [address] General Milling Superintendent: Jeff Morrell MD [facility] [address] [place] [address] [place] [address] General Milling Superintendent: RYAN Moyeromprehensive Metabolic Panelon [id number] [Mass/Vol]3.5 g/dL3.5 - 5.2 g/dLBon Guernsey Memorial HospitalAlbumin/Globulin [Mass ratio]1.4 {ratio}1.0 - 2.5Bon SecUniversity Medical Center HealthALP [Catalytic activity/Vol] 133 U/LHigh35 - 104 U/LBon [facility] HealthALT [Catalytic activity/Vol]9 U/L Low10 - 35 U/LBon SecUniversity Medical Center HealthAnion gap [Moles/Vol]12 mmol/L9 - 16 mmol/LBon SecCity Emergency Hospitaly HealthAST [Catalytic activity/Vol]15 U/L10 - 35 U/LBon SecUniversity Medical Center HealthBilirubin [Mass/Vol]mg/dL0.00 - 1.20 mg/dLBon SecCity Emergency Hospitaly HealthCalcium [Mass/Vol]8.6 mg/dL8.6 - 10.4 mg/dLBon [facility] Health Chloride [Moles/Vol]105 mmol/L98 - 107 mmol/LBon [facility] HealthCO2 [Moles/Vol]20 mmol/L20 - 31 mmol/LBon [facility] HealthCreatinine [Mass/Vol] 0.4 mg/dLLow0.50 - 0.90 mg/dLBon [facility]ernsey Memorial HospitalEst, Glom Filt Rate- PINF [facility] Women'S HospitalComment on above: These results are not intended [...] therapy that affects renal tubular secretion. Glucose [Mass/Vol]88 mg/dL74 - 99 mg/dLBon Guernsey Memorial HospitalInterpretation and review of laboratory resultsAbnormalInova Women'S HospitalPotassium [Moles/Vol]3.8 mmol/L3.7 - 5.3 mmol/LBon [facility] HealthProtein [Mass/Vol] 6.0 g/dLLow6.6 - 8.7 g/dLBon Guernsey Memorial HospitalSodium [Moles/Vol]137 mmol/L136 - 145 mmol/LBon [facility] Memorial HospitalUrea nitrogen [Mass/Vol]4 mg/dLLow6 - 20 mg/dLBon Guernsey Memorial HospitalUrea nitrogen/Creatinine [Mass ratio]10 mg/mg9 - 20 [facility] HospitalDrug Scr, Abuse, Uron 05-16-2024 Amphetamine(s),UrNegativeNormalNEGMercy Buckatunna HospitalComment on above:Result Comment: Cutoff: 1000 ng/mLPerformed By: #### LENARD #### [facility] [address] [place] [address] [place] [address] General Milling Superintendent: Dmitri Galloway MDBarbiturate(s),UrNegativeNormalNEGMercy Buckatunna HospitalComment on above:Result Comment: Cutoff: 200 ng/mlPerformed By: #### LENARD #### [facility] [address] [place] [address] [place] [address] General Milling Superintendent: Dmitri Galloway MDBenzodiazepine(s)NegativeNormalNEGMercy Buckatunna HospitalComment on above:Result Comment: Cutoff: 200 ng/mlPerformed By: #### LENARD #### [address] [place], [place] 8557883 General Milling Superintendent: Dmitri Galloway MDBuprenorphrine, UrNegativeNormalNEGMercy Buckatunna HospitalComment on above:Result Comment: Cutoff: 5 ng/mlPerformed By: #### LENARD #### [address] [place], [place] 4024983 General Milling Superintendent: RYAN Moyerannabinoid(s),UrNegativeNormalNEGMercy Buckatunna HospitalComuniversity of michigan hospital on above:Result Comment: Cutoff: 50 ng/mlPerformed By: #### LENARD #### [address] [place], [place] 0486483 General Milling Superintendent: RYAN Moyerocaine MetaboliteNegativeNormalNEGMercy Buckatunna HospitalComuniversity of michigan hospital on above:Result Comment: Cutoff: 300 ng/mlPerformed By: #### LENARD #### [address] [place] [address] General Milling Superintendent: Dmitri Galloway MDFentanyl, UrineNegativeNormalNEGMercy Buckatunna HospitalComuniversity of michigan hospital on above:Result Comment: Cutoff: 5 ng/mlPerformed By: #### LENARD #### [address] [place], [place] 8761783 General Milling Superintendent: Dmitri Galloway MDInterpretive InfoThis method is a screening test to detect only these drug classes as part of aNormalMercy Buckatunna HospitalComuniversity of michigan hospital on above:Result Comment: medical workup. Confirmatory testing by another method should be ordered if clinically indicated.Performed By: #### LENARD #### [address] [place], [place] [phone] General Milling Superintendent: BENOIT Moyerethadone Ql (U)NegativeNormalNEGMercy Buckatunna HospitalComuniversity of michigan hospital on above:Result Comment: Cutoff: 300 ng/mlPerformed By: #### LENARD #### [address] [place], [place] 6499683 General Milling Superintendent: Dmitri Galloway MDOpiate(s), UrNegativeNormalNEGMercy Buckatunna HospitalComment on above:Result Comment: Cutoff: 300 ng/ml Note: The Opiate screen is not intended to detect Oxycodone.Performed By: #### LENARD #### [address] [place], [facility]83 General Milling Superintendent: Dmitri Galloway MDOxycodone, UrineNegativeNormalNEGMercy Buckatunna HospitalComment on above:Result Comment: Cutoff: 100 ng/mlPerformed By: #### LENARD #### [address] [place], [place] 7503183 General Milling Superintendent: ROSE Moyerhencyclidine, UrNegativeNormalNEGMercy Buckatunna HospitalComment on above:Result Comment: Cutoff: 25 ng/mlPerformed By: #### LENARD #### [address] [place], [place] [phone] General Milling Superintendent: MARIBEL Moyerrug screen multi urineon [id number] Ql (U)NegativeNEGATIVEBon Secours Mercy HealthComment on above:Cutoff: 1000 ng/mLBarbiturates Screen Ql (U)NegativeNEGATIVEBon Secours Mercy HealthComment on above:Cutoff: 200 ng/mlBenzodiazepines Ql (U)NegativeNEGATIVEBon Secours Mercy HealthComment on above:Cutoff: 200 ng/mlBuprenorphine Ql (U)Negative NEGATIVEBon Secours Mercy HealthComment on above:Cutoff: 5 ng/mlCannabinoids Screen Ql (U)NegativeNEGATIVEBon Secours Mercy HealthComment on above:Cutoff: 50 ng/mlCocaine Ql (U)NegativeNEGATIVEBon Secours Mercy HealthComment on above: Cutoff: 300 ng/mlfentaNYL Ql (U)NegativeNEGATIVEBon Secours Mercy HealthComment on above:Cutoff: 5 ng/mlMethadone Ql (U)NegativeNEGATIVEInova Women'S Hospital Comment on above:Cutoff: 300 ng/mlOpiates Screen Ql (U)NegativeNEGATIVEInova Women'S HospitalComment on above:Cutoff: 300 ng/ml Note: The Opiate screen is not intended to detect Oxycodone. oxyCODONE Ql (U)NegativeNEGATIVELifePoint Health on above:Cutoff: 100 ng/mlPhencyclidine Ql (U)NegativeNEGATIVENaval Medical Center Portsmouthment on above:Cutoff: 25 ng/mlTest InformationThis method is a screening test to detect only these drug classes as part of a medical workup. Confirmatory testing by another method should be ordered if clinically indicated.[facility] HospitalProtein / Creatinine Ratio, Urineon 05-16-2024 Creatinine (U) [Mass/Vol]108.0 mg/dL28.0 - 217.0 mg/dLBon [facility] Protein (U) [Mass/Vol]13 mg/dLBon Guernsey Memorial HospitalComment on above:No normal range established.Urine Total Protein Creatinine Ratio0.120.00 - 0.20Bon [facility] Community HospitalProtein,Tot,[place] Uron 05-16-2024 Creatinine [Mass/Vol]108.0 mg/zJLsfabn89.0-217.0[facility], BeachwoodComment on above:Performed By: #### URTPRT #### [facility] [address] [place] [address] [place] [address] General Milling Superintendent: Dmitri Galloway MDTot Prot. Conc.13 mg/dLNormalSelect Medical [facility], [place] Comment on above:Result Comment: No normal range established.Performed By: #### URTPRT #### [facility] [address] [place] [address] [place] [address] General Milling Superintendent: Dmitri Galloway MDTP/Cre Ratio0.43Ccfyex8.00-0.20[facility], BeachwoodComment on above:Performed By: #### URTPRT #### [address] [place] [address] General Milling Superintendent: Dmitri Galloway MDTYPE AND SCREENon 62-00-2427UPX and Rh group Nom (Bld)Blood group A Rh(D) positiveBon Gu[facility] Memorial HospitalArm Band [id number] Bon [facility] Memorial HospitalBlood Bank Sample Idkimqjykp18/24/2025,2359Bon SecCleveland Clinic Avon HospitalBlood group antibodies identified NomNegativeBon SecUniversity Hospitals Beachwood Medical Center SecUniversity Medical Center HealthType + Screenon [id number] + ScreenSample Expiration 05/19/2024,2359 Arm Band Number [id number] ABO/Rh(D) A POSITIVE Antibody Screen NEGATIVENoSt. Vincent HospitalComment on above:Performed By: #### VAGP #### [facility] [address] [place], [place] 1784708 General Milling Superintendent: Jeff Morrell MD [facility] [address] [place] [address] General Milling Superintendent: Dmitri Galloway MDUrinalysison 01-75-0528Hdodgikpy Ql (U)Negative NEGATIVEBon Secours Mercy HealthClarity (U)ClearClearBon Secours [facility]cy Health Urbana Hospitaly Health Color (U)YellowYellowBon Secours Mercy HealthGlucose Test strip (U) [Mass/Vol] NegativeNEGATIVE mg/dLBon Secours Mercy HealthHemoglobin Auto test strip Ql (U) NegativeNEGATIVEBon Secours Mercy HealthKetones (U) [Mass/Vol]NegativeNEGATIVE mg/dLBon Secours Mercy HealthLeukocyte esterase Test strip Ql (U)Negative NEGATIVEBon Secours Mercy HealthNitrite Ql (U)NegativeNEGATIVEBon Secours Mercy HealthpH (U)7.0 [pH]5.0 - 9.0[facility] HealthProtein (U) [Mass/Vol] NegativeNEGATIVE mg/dLBon Secours Mercy HealthSpecific gravity (U) [Rel density] 1.0151.010 - 1.020Bon [facility] HealthUrobilinogen Qn (U)Normal0.0 - 1.0 EU/dLBon Secours Mercy HealthBon Secours Mercy Health Urbana Hospitaly HealthUrinalysis, Routineon 06-41-6867Whkewmlqp, SemiQt,UrNegativeNormalNEGMerJohnson Memorial HospitalComment on above:Performed By: #### UA #### [facility] [address] [place] [address] [place]. [place], [place] [phone] General Milling Superintendent: Marnie Moyer, UrineNegativeCedar County Memorial HospitalalSelect Medical Specialty [facility] [place] Comment on above:Performed By: #### UA #### [facility] [address] [place] [address] Dr. [place], [place] 6200883 General Milling Superintendent: RYAN Moyerlarity (U)ClearNormalCLEARSelect Medical Cleveland Clinic [facility], [place] Comment on above:Performed By: #### UA #### [address] [place], [place] [phone] General Milling Superintendent: RYAN Moyerolor (U)YellowNormalYOur Lady of Mercy Hospital Comment on above:Performed By: #### UA #### [facility] [address] [place] [address] Dr. [place], [facility]83 General Milling Superintendent: Dmitri Galloway MDGlucose Ql (U)NegativeNormalNEGSelect Medical Cleveland Clinic Rehabilitation Hospital, BeachwoodComment on above:Performed By: #### UA #### [address] [place], [place] 3427683 General Milling Superintendent: Dmitri Galloway MDKetones Ql (U)NegativeNormalNEGSelect Medical Cleveland Clinic Rehabilitation Hospital, BeachwoodComment on above:Performed By: #### UA #### [facility] [address] [place] [address] Dr[place], [place] 3670183 General Milling Superintendent: Dmitri Galloway MDLeukocyte esterase Test strip Ql (U)NegativeNormal NEGSelect Medical Cleveland Clinic Rehabilitation Hospital, BeachwoodComment on above:Performed By: #### UA #### [address] [place] [address] General Milling Superintendent: Dmitri Galloway MDNitrite,UrNegativermalSelect Medical Specialty Hospital - [place] Comment on above:Performed By: #### UA #### [facility] [address] [place] [address] [place] [address] General Milling Superintendent: ROSE Moyer,Ur7.9Nplxsc4.0-9.0[facility], BeachwoodComment on above:Performed By: #### UA #### [address] [place] [address] General Milling Superintendent: ROSE Moyerrotein Ql (U)NegativeNormalNEGMarietta Osteopathic Clinic HospitalComment on above:Performed By: #### UA #### [address] [place] [address] General Milling Superintendent: Tai Moyer. [place],Ur1.595Aioodj4.010-1.020[facility], BeachwoodComment on above:Performed By: #### UA #### [address] [place] [address] General Milling Superintendent: Dmitri Galloway MDUrobilinogen,UrNormalNormal0.0-1.0[facility], BeachwoodComment on above:Performed By: #### UA #### [address] [place] [address] General Milling Superintendent: Lucero Moyer Out Grp.B Strepon [id number] Out Grp.B StrepSpecimen Description .VAGINA Special Requests Site: Genital Culture NEGATIVE FOR GROUP B STREPTOCOCCI Report Status FINAL 05/10/2024NormalSelect Medical Cleveland Clinic Rehabilitation Hospital, BeachwoodComment on above: Performed By: #### VAGP #### [facility] [address] [place], [place] 965[address]08 General Milling Superintendent: Jeff Morrell MD [address] [place], [place] 8983583 General Milling Superintendent: Jolene Moyer/GC,DNA Ampon [id number] Probe NegativeNormalNEGMarietta Osteopathic Clinic HospitalComment on above:Result Comment: CHLAMYDIA TRACHOMATIS DNA not detected by nucleic acid [...] positive results by an alternative nucleic acid target.Performed By: #### VAGP #### [facility] Urbana HospitalSymtavision [address] [place] [address] General Milling Superintendent: Jeff Morrell MD [address] [place] [address] General Milling Superintendent: Dmitri Galloway MDGonorrhea ProbeNegativeNormLake County Memorial Hospital [facility] on above:Result Comment: NEISSERIA GONORRHOEAE DNA not detected by nucleic acid [...] positive results by an alternative nucleic acid target.Performed By: #### VAGP #### [facility] Urb[facility] HospitalLeader Technologies [address] [place] [address] General Milling Superintendent: Jeff Morrell MD [address] [place] [address] General Milling Superintendent: Dmitri Galloway MDVaginitis DNA Probeon 83-86-0352Isvtmxv species PositiveAbnormalNEGLewisGale Hospital Pulaski on above:for Kimmy sp. Method of testing is a DNA probe intended for detection and identification of Kimmy species, Gardnerella vaginalis, and Trichomonas vaginalis nucleic acid in vaginal fluid specimens from patients with symptoms of vaginitis/vaginosis. GARDNERELLA VAGINALISNegativeNEGATIVELifePoint Health on above: for Gardnerella vaginalisInterpretation and review of laboratory resultsAbnormal Bon [facility] [place].VAGINAL SWABCarilion Roanoke Community Hospital NegativeNEGATIVEBon Guernsey Memorial HospitalComment on above:for Trichomonas VaginalisInova Women'S HospitalCandidaPositiveAbOhioHealth Grove [facility] Comment on above:Result Comment: for Kimmy sp. Method of testing is a DNA probe intended for detection and identification of Kimmy species, Gardnerella vaginalis, and Trichomonas vaginalis nucleic acid in vaginal fluid specimens from patients with symptoms of vaginitis/vaginosis. Performed By: #### VAGP #### [address] [address] General Milling Superintendent: Jeff Morrell MD [facility] [address] [place] [address] [place] [address] General Milling Superintendent: Dmitri Galloway MDMontefiore Nyack HospitalllaNegatSt. John of God Hospital Comment on above:Result Comment: for Gardnerella vaginalisPerformed By: #### VAGP #### [address] [address] General Milling Superintendent: Jeff Morrell MD [facility] [address] [place] [address] Dr. [place]on[place], [place] [phone] General Milling Superintendent: Dmitri Galloway MDOhiohealth Pickerington Methodist HospitalonasNegativeSelect Medical [facility]ty [facility] Comment on above:Result Comment: for Trichomonas VaginalisPerformed By: #### VAGP #### [address] [address] General Milling Superintendent: Jeff Morrell MD [address] [place]onCRESTLINE, [place] [phone] General Milling Superintendent: Dmitri Galloway MDVaginitis DNA Probeon 68-06-1929Lsuhbw.VAGINAL SWABMedina HospitalComment on above:Performed By: #### VAGP #### [address] [address] General Milling Superintendent: Jeff Morrell MD [facility] [address] [place] [address] Dr. [place], [place] [phone] General Milling Superintendent: Lucero Moyer Out Grp.B Strepon 81-21-2079Oxyl Out Grp.B StrepSpecimen Description .VAGINA Special Requests Site: Genital Culture NEGATIVE FOR GROUP B STREPTOCOCCI Report Status FINAL 04/22/2024Mag[facility]uder Memorial HospitalComment on above:Performed By: #### ROGBS #### [facility] [address] [address] General Milling Superintendent: RYAN Randallhlamydia/GC,DNA Ampon 34-87-0769Llqywihaz Probe NegativeMagruder Memorial HospitalComment on above:Result Comment: CHLAMYDIA TRACHOMATIS DNA not detected by nucleic acid [...] positive results by an alternative nucleic acid target.Performed By: #### MEGHNAGP #### [address] [address] General Milling Superintendent: Linda Randall ProbeNegativeMagruder Memorial HospitalComment on above:Result Comment: NEISSERIA GONORRHOEAE DNA not detected by nucleic acid [...] positive results by an alternative nucleic acid target.Performed By: #### ISAKCGP #### [facility] [address] [place] [address] General Milling Superintendent: NUBIA Randall with Diffon 98-42-1509Qze. Basophil<0.03 Normal0.00-0.20[facility] Community HospitalComment on above:Performed By: #### TREP, CDP #### [facility] [address] [place] [address] General Milling Superintendent: Dimple Randall. Eosinophil<0.79Tzjxei0.00-0.44[facility] HospitalComment on above:Performed By: #### RAAD, CDP #### [facility] [address] [place] [address] General Milling Superintendent: Dimple Randall.Imm.Granulocyte0.06 k/uLNormal0.00-0.30[facility] HospitalComment on above:Performed By: #### RAAD, CDP #### [address] [address] General Milling Superintendent: Dimple Randall.Neutrophil (Seg)8.13 k/uLHigh1.50-8.10[facility] HospitalComment on above:Performed By: #### RAAD, CDP #### [address] [address] General Milling Superintendent: Jeff Morrell MDBasophils/100 WBC (Bld)0 %Normal0-2MUniversity HospitalComment on above:Performed By: #### RAAD, CDP #### [address] [address] General Milling Superintendent: Jeff Morrell MDEosinophils/100 WBC (Bld)0 %Low1-4[facility] HospitalComment on above:Performed By: #### TRECelena, CDP #### [facility] [address] [place] [address] General Milling Superintendent: Jeff Morrell MDErythrocyte distribution width (RBC) [Ratio]13.2 %Bgpkqn12.8-14.4[facility] HospitalComment on above:Performed By: #### TRECelena, CDP #### [address] [address] General Milling Superintendent: Jeff Morrell MDHematocrit (Bld) [Volume fraction]34.6 %Low 36.3-47.1MUniversity HospitalComment on above:Performed By: #### RAAD, CDP #### [address] [address] General Milling Superintendent: Jeff Morrell MDHemoglobin (Bld) [Mass/Vol]11.1 g/dLLow11.9-15.1 [facility] HospitalComment on above:Performed By: #### RAAD, CDP #### [address] [address] General Milling Superintendent: [place] Randallmature granulocytes/100 WBC (Bld)1 %Wolg2EzdpoGalion Community HospitalComment on above:Performed By: #### RAAD, CDP #### [address] [address] General Milling Superintendent: Jeff Morrell MDLymphocytes (Bld) [#/Vol]1.70 10*3/uLNormal 1.10-3.70[facility] HospitalComment on above:Performed By: #### RAAD, CDP #### [address] [address] General Milling Superintendent: Lacie Randallmphocytes/100 WBC (Bld)17 %Ryi10-30PlfbmGalion Community HospitalComment on above:Performed By: #### TRECelena, CDP #### [address] [address] General Milling Superintendent: BENOIT RandallCH (RBC) [Entitic mass]28.5 cjMnewig49.2-33.5 [facility] HospitalComment on above:Performed By: #### RAAD, CDP #### [address] [address] General Milling Superintendent: Jeff Madoff, MDMCHC (RBC) [Mass/Vol]32.1 g/jERbvaun38.4-34.8 [facility] HospitalComment on above:Performed By: #### RAAD, CDP #### [address] [address] General Milling Superintendent: Jeff Morrell MDMCV (RBC) [Entitic vol]88.7 uGLxoyen04.6-102.9 [facility] HospitalComment on above:Performed By: #### RAAD, CDP #### [address] [address] General Milling Superintendent: Jeff Morrell MDMonocytes (Bld) [#/Vol]0.10 10*3/uLNormal 0.10-1.20[facility] HospitalComment on above:Performed By: #### RAAD, CDP #### [address] [address] General Milling Superintendent: BENOIT Randallonocytes/100 WBC (Bld)1 %Low3-12[facility] HospitalComment on above:Performed By: #### RAAD, CDP #### [address] [address] General Milling Superintendent: Jeff Morrell MDNeutrophil (Seg)81 %Vbbg19-69LlxpmGalion Community HospitalComment on above:Performed By: #### RAAD, CDP #### [address] [address] General Milling Superintendent: Jeff Morrell MDNRBC Automated0.0 per 100 WBCNormal0.0[facility] HospitalComment on above:Performed By: #### RAAD, CDP #### [address] [address] General Milling Superintendent: ROSE Randalllatelet mean volume (Bld) [Entitic vol]11.4 fL Normal8.1-13.5[facility] HospitalComment on above:Performed By: #### RAAD, CDP #### [facility] [address] [place] [address] General Milling Superintendent: Dee Randall (d) [#/Vol]202 10*3/yTLpeyut955-658 [facility] HospitalComment on above:Performed By: #### RAAD, CDP #### [facility] [address] [place] [address] General Milling Superintendent: LINA RandallBC (d) [#/Vol]3.90 10*6/uLLow3.95-5.11[facility] HospitalComment on above:Performed By: #### RAAD, CDP #### [address] [address] General Milling Superintendent: VITOR Randall (d) [#/Vol]10.0 10*3/uLNormal3.5-11.3MUniversity HospitalComment on above:Performed By: #### RAAD, CDP #### [address] [address] General Milling Superintendent: MARIBEL Randallrug Scr, Abuse, Uron 04-19-2024 Amphetamine(s),UrNegativeNormalNEGMerCommunity Memorial Hospital of San BuenaventuraComment on above:Result Comment: Cutoff: 1000 ng/mLPerformed By: #### UAX, LENARD #### [address] [address] General Milling Superintendent: Jeff Morrell MDBarbiturate(s),UrNegativeNormalNEGMerCommunity Memorial Hospital of San BuenaventuraComment on above:Result Comment: Cutoff: 200 ng/ml Performed By: #### UAX, LENARD #### [facility] [address] [place] [address] General Milling Superintendent: Jeff Morrell MDBenzodiazepine(s)NegativeNormalNEGMerCommunity Memorial Hospital of San BuenaventuraComment on above:Result Comment: Cutoff: 200 ng/ml Performed By: #### UAX, LENARD #### [facility] [address] [place] [address] General Milling Superintendent: RYAN Randallannabinoid(s),UrNegativeNormalNEGGalion Community HospitalComment on above:Result Comment: Cutoff: 50 ng/mlPerformed By: #### UAX, LENARD #### [facility] [address] [place] [address] General Milling Superintendent: RYAN Randallocaine MetaboliteNegativeBragg CityNEGGalion Community HospitalComment on above:Result Comment: Cutoff: 300 ng/ml Performed By: #### UAX, LENARD #### [facility] [address] [address] General Milling Superintendent: Jeff Morrell MDFentanyl, UrineNegativeNormalNEGGalion Community HospitalComuniversity of michigan hospital on above:Result Comment: Cutoff: 5 ng/mlPerformed By: #### UAX, LENARD #### [address] [address] General Milling Superintendent: Jeff Morrell MDInterpretive InfoAssay provides rapid clinical screening only. Presumptive positive results forMagruder Memorial HospitalComment on above:Result Comment: legal purposes should be confirmed by another method. To request confirmation, please call the lab within 7 days of sample submission.Performed By: #### UAX, LENARD #### [facility] [address] [place] [address] General Milling Superintendent: BENOIT Randallethadone Ql (U)NegativeNormalNEGMerCommunity Memorial Hospital of San BuenaventuraComment on above:Result Comment: Cutoff: 300 ng/ml Performed By: #### UAX, LENARD #### [facility] [address] [place] [address] General Milling Superintendent: Jeff Morrell MDOpiate(s), UrNegativeBragg CityNEGGalion Community HospitalComment on above:Result Comment: Cutoff: 300 ng/mlPerformed By: #### UAX, LENARD #### [facility] [address] [place] [address] General Milling Superintendent: Jeff Morrell MDOxycodone, UrineNegativeBragg CityNEGGalion Community HospitalComment on above:Result Comment: Cutoff: 100 ng/ml Performed By: #### UAX, LENARD #### [facility] [address] [place] [address] General Milling Superintendent: ROSE Randallhencyclidine, UrNegativeMercer County Community HospitalComment on above:Result Comment: Cutoff: 25 ng/mlPerformed By: #### UAX, LENARD #### [address] [address] General Milling Superintendent: Jeff Morrell MDT.pallidum Ab Screenon 04-19-2024T.pallidum Ab ScreenNon-ReactiveMercy Health – The Jewish HospitalComment on above: Result Comment: T. pallidum antibodies are not detected. There is no serological evidence of infection with T. pallidum (early primary syphilis cannot be excluded). Retest in 2-4 weeks if syphilis is clinically suspect.Performed By: #### TREP, CDP #### [facility] [address] [place] [address] General Milling Superintendent: Jeff Morrell MDType + Screenon [id number] + ScreenSample Expiration 04/22/2024,2359 Arm Band Number BE [id number] ABO/Rh(D) A POSITIVE Antibody Screen NEGATIVEMagruder Memorial HospitalComment on above: Performed By: #### TYS #### [facility] [address] [place] [address] General Milling Superintendent: FIDENCIO Randall w/Reflex Cultureon 47-87-7022Wyirqdvgv, SemiQt,UrNegativeNormalNEGGalion Community HospitalComment on above: Performed By: #### UAX, LENARD #### [facility] [address] [place] [address] General Milling Superintendent: Marnie Randall, UrineNegativermalNEGGalion Community HospitalComment on above:Performed By: #### UAX, LENARD #### [facility] [address] [place] [address] General Milling Superintendent: RYAN Randalllarity (U)ClearNormalCLEARGalion Community HospitalComment on above:Performed By: #### UAX, LENARD #### [facility] [address] [place] [address] General Milling Superintendent: RYAN Randallolor (U)YellowNormalYELMerCommunity Memorial Hospital of San BuenaventuraComment on above:Performed By: #### UAX, LENARD #### [facility] [address] [address] General Milling Superintendent: Jordan RandallMicroscopic exam not performed based on chemical results unless requested [facility] Medical CenterormalGalion Community Hospital Comment on above:Result Comment: original order.Performed By: #### UAX, LENARD #### [facility] [address] [place] [address] General Milling Superintendent: Jeff Morrell MDGlucose Ql (U)NegativeNormalNEGGalion Community HospitalComment on above:Performed By: #### UAX, LENARD #### [facility] [address] [place] [address] General Milling Superintendent: Jeff Morrell MDKetones Ql (U)NegativeNormalNEGGalion Community HospitalComment on above:Performed By: #### UAX, LENARD #### [facility] [place] [address] General Milling Superintendent: Jeff Morrell MDLeukocyte esterase Test strip Ql (U)Negative NormalNEGGalion Community HospitalComment on above:Performed By: #### UAX, LENARD #### [facility] [address] [place] [address] General Milling Superintendent: Jeff Morrell MDNitrite,UrNegativeNormalNEGGalion Community HospitalComment on above:Performed By: #### UAX, LENARD #### [address] [address] General Milling Superintendent: ROSE Randall,Ur7.5Yoxzye6.0-8.0[facility] HospitalComment on above:Performed By: #### RONX, LENARD #### [address] [address] General Milling Superintendent: ROSE Randallrotein Ql (U)NegativeNormalNEGGalion Community HospitalComment on above:Performed By: #### UAX, LENARD #### [address] [address] General Milling Superintendent: SAMUEL Randallpec. [place],Ur1.745Oiynib9.005-1.030[facility] Community HospitalComment on above:Performed By: #### UAX, LENARD #### [facility] [address] [place] [address] General Milling Superintendent: Jeff Morrell MDUrobilinogen,UrNormalNormal0.0-1.0[facility] Community HospitalComment on above:Performed By: #### UAX, LENARD #### [address] [address] General Milling Superintendent: Jeff Morrell MDVaginitis DNA Probeon 21-20-8843ZujutudMsfioqsn NormalBarnesville HospitalComment on above:Result Comment: for Kimmy sp. Method of testing is a DNA probe intended for detection and identification of Kimmy species, Gardnerella vaginalis, and Trichomonas vaginalis nucleic acid in vaginal fluid specimens from patients with symptoms of vaginitis/vaginosis. Performed By: #### VAGP #### [facility] [address] [address] General Milling Superintendent: Jerrica RandalldnerellaNegativeNormalBarnesville HospitalComment on above:Result Comment: for Gardnerella vaginalis Performed By: #### VAGP #### [address] [address] General Milling Superintendent: Liudmila RandallhomonasNegativeCedar County Memorial HospitalalBarnesville HospitalComment on above:Result Comment: for Trichomonas Vaginalis Performed By: #### VAGP #### [address] [address] General Milling Superintendent: Johanne Randall.VAGINAL SWABNormUK HealthcareComment on above:Performed By: #### VAGP #### [address] [address] General Milling Superintendent: Jeff Morrell MDHPV DNA High Riskon 45-77-9282WJV [facility]tering Health Washington TownshipComment on above:Result Comment: This test amplifies and detects DNA [...] suspected sexual abuse or for other forensic purposes.Performed By: #### VAGP #### [facility] [address] [place] [address] General Milling Superintendent: Jeff Morrell MD [facility] [address] [place] [address] [place] [address] General Milling Superintendent: Dmitri Galloway MDHPV Type 16Not detectedNormalNOTDEKettering Health Washington TownshipComuniversity of michigan hospital on above:Performed By: #### VAGP #### [address] [address] General Milling Superintendent: Jeff Morrell MD [facility] [address] [place] [address] [place] [address] General Milling Superintendent: Dmitri Galloway MDHPV Type 18Not detectedNormalNOTDEKettering Health Washington TownshipComuniversity of michigan hospital on above:Performed By: #### VAGP #### [address] [address] General Milling Superintendent: Jeff Morrell MD [address] [place] [address] General Milling Superintendent: Dmitri Galloway MDOther High Risk HPVNot detectedNormalNOTDEKettering Health Washington TownshipComuniversity of michigan hospital on above:Performed By: #### VAGP #### [address] [address] General Milling Superintendent: Jeff Morrell MD [facility] [address] [place] [address] Dr. [place] [phone] General Milling Superintendent: Dmitri Galloway MDHPV DNA High Riskon 07-58-6774BFB Sample.THIN PREP NormalMercy Sharon HospitalComuniversity of michigan hospital on above:Performed By: #### VAGP #### [facility] [address] [place] [address] General Milling Superintendent: Jeff Morrell MD [facility] [address] [place] [address] Dr. [place], [place] [phone] General Milling Superintendent: Dmitri Sturtz, MDSourceCERVICAL MATERIALNormalSelect Medical [facility] [place] Comment on above:Performed By: #### VAGP #### [address] [phone] General Milling Superintendent: Jeff Morrell MD [facility] [address] [place] [address] General Milling Superintendent: Dmitri Galloway [facility] MUSKOGEEytology Reporton [id number] report Cyto stain.thin prep Doc (Cvx/Vag)(NOTE) Path Number: [id number] DIAGNOSIS Imaged ThinPrep Pap - Cervical (1 monolayer slide): Specimen Adequacy: Satisfactory for evaluation. -Endocervical/transformation zone component is absent. Descriptive Diagnosis: Negative [...] or for other forensic purposes. Performed at [address] [address] ([phone] Source of Specimen: A: Imaged ThinPrep Pap - Cervical (1 monolayer slide) HPV Reflex?......................HPV Regardless Clinical History Co-Test: ThinPrep Pap with high risk HPV testing R87.612 Cytology smear of cervix with LSIL Z12.4 Encounter for screening for malignant neoplasm of cervix Z11.51 Encounter for screening for HPV History of: Z3A.12; 12 weekls gestation of LMP: 08/27/2023 Processing Lab: [address] [address] Interpretation performed at [address] [address] This Pap Test has been evaluated with the assistance of the [employer] Pap Test Imaging System. The Pap smear is a screening test primarily for squamous epithelial lesions, which is subject to both false negative and false positive results. Your patient should be reminded to consult you immediately if she experiences any suspicious signs or symptoms, regardless of her Pap smear result. GYNECOLOGIC CYTOLOGY REPORT Patient Name: ALIE EAGLE [facility] Rec: [id number] [facility] ANATOMIC PATHOLOGY [address] [place] [address]. [place], [place] [address] NoSt. Vincent HospitalChlamydia/GC DNA, Uron 10-25-2023 Chlamydia Probe, UrNegativeNormalNEGSelect Medical Cleveland Clinic Rehabilitation Hospital, BeachwoodComment on above:Result Comment: CHLAMYDIA TRACHOMATIS DNA not detected by nucleic acid [...] positive results by an alternative nucleic acid target.Performed By: #### UCGP #### [address] [address] General Milling Superintendent: Sapna Randallhea Probe, UrNegativeNormhiNEGSelect Medical Cleveland Clinic Rehabilitation Hospital, BeachwoodComment on above:Result Comment: NEISSERIA GONORRHOEAE DNA not detected by nucleic acid [...] positive results by an alternative nucleic acid target.Performed By: #### UCGP #### [address] [address] General Milling Superintendent: Ceci Randall,Urineon 90-97-6599Uqfz,UrineSpecimen Description .CLEAN CATCH URINE Special Requests Site: Urine Culture NO GROWTH Report Status FINAL 10/25/2023Medina HospitalComment on above: Performed By: #### VAGP #### [address] [address] General Milling Superintendent: Jeff Morrell MD [address] [place] [address] General Milling Superintendent: Dmitri Galloway MDHIV Ag/Abon [id number] Ag/AbNon-ReactiveNormal [facility] HospitalComuniversity of michigan hospital on above:Result Comment: No laboratory evidence of HIV infection. If acute HIV infection is suspected, consider testing for HIV-1 RNA.Performed By: #### JEANNECV HIVCMB #### [address] [phone] General Milling Superintendent: Lacey Randall Abon 03-92-1522Sas C AbNon-ReactiveNormal [facility] HospitalComuniversity of michigan hospital on above:Result Comment: The hepatitis C procedure used in [...] is recommended by ordering HCV RNA by PCR.Performed By: #### MAURICIO HIVCMB #### [address] [phone] General Milling Superintendent: Veronica Randall Profileon 10-25-2023T.pallidum Ab ScreenNon-ReactivePremier HealthComment on above:Result Comment: T. pallidum antibodies are not detected. There is no serological evidence of infection with T. pallidum (early primary syphilis cannot be excluded). Retest in 2-4 weeks if syphilis is clinically suspect.Performed By: #### PRENAT #### [address] [address] General Milling Superintendent: Jeff Morrell MD [address] [place] [phone] General Milling Superintendent: Usha Moyer Ab, IgG76.8 IU/mLNormalSelect Medical Cleveland Clinic Rehabilitation Hospital, BeachwoodComment on above:Result Comment: REFERENCE RANGE: <5.0 NON-REACTIVE (non-immune) 5.0 TO 9.9 EQUIVOCAL >=10.0 REACTIVE (immune)Performed By: #### PRENAT #### [address] [address] General Milling Superintendent: Jeff Morrell MD [address] [place] [phone] General Milling Superintendent: Lacey Moyer B Surf AgNon-ReactivePremier HealthComment on above:Performed By: #### PRENAT #### [address] [address] General Milling Superintendent: Jeff Morrell MD [address] [place] [phone] General Milling Superintendent: Veronica Moyer [facility] [id number]. Basophil<0.03 Normal0.00-0.20[facility] Hospital, BeachwoodComment on above:Performed By: #### PRENAT #### [address] [address] General Milling Superintendent: Jeff Morrell MD [address] [place] [phone] General Milling Superintendent: MDAbs. JoãoImm.Granulocyte<0.11Xpjbwb1.00-0.30[facility] Clinic HospitalComment on above:Performed By: #### PRENAT #### [address] [address] General Milling Superintendent: Jeff Morrell MD [address] [place] [address] General Milling Superintendent: Dimple Moyer.Neutrophil (Seg)2.45 k/uLNormal1.50-8.10[facility] HospitalComment on above:Performed By: #### PRENAT #### [address] [address] General Milling Superintendent: Jeff Morrell MD [address] [place] [address] General Milling Superintendent: Dmitri Galloway MDBasophils/100 WBC (Bld)0 %Normal0-2Mdelaware county hospitaly Buckatunna HospitalComment on above:Performed By: #### PRENAT #### [address] [address] General Milling Superintendent: Jeff Morrell MD [address] [place] [address] General Milling Superintendent: Dmitri Galloway MDEosinophils (Bld) [#/Vol]0.03 10*3/uLNormal 0.00-0.44[facility] HospitalComment on above:Performed By: #### PRENAT #### [address] [address] General Milling Superintendent: Jeff Morrell MD [address] [place] [address] General Milling Superintendent: Dmitri Galloway MDEosinophils/100 WBC (Bld)1 %Normal1-4[facility]atunna HospitalComment on above:Performed By: #### PRENAT #### [address] [address] General Milling Superintendent: Jeff Morrell MD [address] [place] [phone] General Milling Superintendent: Dmitri Galloway MDErythrocyte distribution width (RBC) [Ratio]12.7 % Mylzoc24.8-14.4[facility] Hospital, BeachwoodComment on above:Performed By: #### PRENAT #### [address] [address] General Milling Superintendent: Jeff Morrell MD [address] [place] [id number] General Milling Superintendent: Dmitri Galloway MDHematocrit (Bld) [Volume fraction]38.6 %Normal 36.3-47.1MUniversity Hospitals Beachwood Medical CenterComment on above:Performed By: #### PRENAT #### [address] [address] General Milling Superintendent: Jeff Morrell MD [address] [place] [phone] General Milling Superintendent: Dmitri Galloway MDHemoglobin (Bld) [Mass/Vol]13.3 g/dLNormal 11.9-15.1MUniversity Hospitals Beachwood Medical CenterComment on above:Performed By: #### PRENAT #### [address] [address] General Milling Superintendent: Jeff Morrell MD [address] [place] [phone] General Milling Superintendent: Dmitri Galloway MDImmature granulocytes/100 WBC (Bld)0 %Zztehx7CslhySelect Medical [facility] Clinic Rehabilitation Hospital, BeachwoodComuniversity of michigan hospital on above:Performed By: #### PRENAT #### [address] [address] General Milling Superintendent: Jeff Morrell MD [address] [place], [place] [phone] General Milling Superintendent: Dmitri Galloway MDLymphocytes (Bld) [#/Vol]2.12 10*3/uLNormal 1.10-3.70[facility], BeachwoodComment on above:Performed By: #### PRENAT #### [address] [address] General Milling Superintendent: Jeff Morrell MD [address] [place] [phone] General Milling Superintendent: Lacie Moyermphocytes/100 WBC (Bld)42 %Drbpyc88-16YzezrSelect Medical Cleveland Clinic Rehabilitation Hospital, BeachwoodComment on above:Performed By: #### PRENAT #### [address] [address] General Milling Superintendent: Jeff Morrell MD [address] [place] [address] General Milling Superintendent: BENOIT MoyerCH (RBC) [Entitic mass]30.3 qrDnlhgb15.2-33.5 [facility], BeachwoodComment on above:Performed By: #### PRENAT #### [facility] [address] [place] [address] General Milling Superintendent: Jeff Morrell MD [address] [place] [phone] General Milling Superintendent: DAVID MoyerC (RBC) [Mass/Vol]34.5 g/wBFykfzy07.4-34.8[facility], BeachwoodComment on above:Performed By: #### PRENAT #### [address] [address] General Milling Superintendent: Jeff Morrell MD [address] [place], [place] [phone] General Milling Superintendent: BENOIT MoyerCV (RBC) [Entitic vol]87.9 tESkuoaj10.6-102.9 [facility], BeachwoodComment on above:Performed By: #### PRENAT #### [address] [address] General Milling Superintendent: Jeff Morrell MD [facility] [address] [place] [address] Dr. [place] [phone] General Milling Superintendent: Dmitri Galloway MDMonocytes (Bld) [#/Vol]0.37 10*3/uLNormal0.10-1.20 [facility], BeachwoodComment on above:Performed By: #### PRENAT #### [address] [address] General Milling Superintendent: Jeff Morrell MD [address] [place] [phone] General Milling Superintendent: BENOIT Moyeronocytes/100 WBC (Bld)7 %Normal3-12[facility] Clinic HospitalComment on above:Performed By: #### PRENAT #### [address] [address] General Milling Superintendent: Jeff Morrell MD [address] [place] [address] General Milling Superintendent: Dmitri Galloway MDNeutrophil (Seg)50 %Btizut85-32NhnivSelect Medical Cleveland Clinic Rehabilitation Hospital, BeachwoodComment on above:Performed By: #### PRENAT #### [address] [address] General Milling Superintendent: Jeff Morrell MD [address] [place] [phone] General Milling Superintendent: Dmitri Galloway MDNRBC Automated0.0 per 100 WBCNormal0.0[facility], BeachwoodComment on above:Performed By: #### PRENAT #### [address] [address] General Milling Superintendent: Jeff Morrell MD [address] [place] [address] General Milling Superintendent: Dale Moyer mean volume (Bld) [Entitic vol]11.5 fL Normal8.1-13.5[facility], BeachwoodComment on above:Performed By: #### PRENAT #### [place] [address] [place] [address] General Milling Superintendent: Jeff Morrell MD [address] [place] [address] General Milling Superintendent: Dee Moyer (Bld) [#/Vol]222 10*3/oTTwrbui673-268 [facility], BeachwoodComment on above:Performed By: #### PRENAT #### [address] [address] General Milling Superintendent: Jeff Morrell MD [address] [place] [address] General Milling Superintendent: ANDREW Moyer (Bld) [#/Vol]4.39 10*6/uLNormal3.95-5.11[facility] Hospital, BeachwoodComment on above:Performed By: #### PRENAT #### [facility] [address] [place] [address] General Milling Superintendent: Jeff Morrell MD [address] [place] [address] General Milling Superintendent: VITOR Moyer (Bld) [#/Vol]5.0 10*3/uLNormal3.5-11.3MUniversity Hospitals Beachwood Medical CenterComment on above:Performed By: #### PRENAT #### [place] [address] [place] [address] General Milling Superintendent: Jeff Morrell MD [address] [place] [address] General Milling Superintendent: Dmitri Sturtz, MDPrenatal Type + Scrnon 38-68-9835Rnaacbcb Type + ScrnNegativeNormalMercy Sharon HospitalComment on above:Performed By: #### PRTYS #### [facility] [address] [place], [place] [phone] General Milling Superintendent: Dmitri Galloway MDAutomated erythrocytes count in urine sediment (number/area)Ordered By: PROVIDER TEMP on 99-50-8900KRJ Auto (Urine sed) [#/Area]1-2 [HPF]0-4FZanesville City HospitalAutomated leukocytes count in urine sediment (number/area)Ordered By: PROVIDER TEMP on 17-47-0327LKY Auto (Urine sed) [#/Area]10-19 [HPF]0-4FZanesville City HospitalBilirubin Test strip Ql (U)Ordered By: PROVIDER TEMP on 14-59-5062Wbosfyqqg Ql (U)Negative NegativeOhiohealth Van Wert HospitalColor Auto (U)Ordered By: PROVIDER TEMP on 28-01-5446Ocvbq (U)YellowYellowOhiohealth Van Wert HospitalDipstick and Microscopicon 79-79-5976Jhmdqnhcrb (U)CloudyCritically abnormalClearThe [facility] Anson Physician GroupComment on above:Order Comment: Name Collection Type:: Clean-Voided MidstreamPerformed By: #### ADDONUAPLUS, CUU #### [facility] [address] [place] [address] USABacteria,UrineNone SeenNormalNone SeenThe [facility]rium Health Anson Physician GroupComment on above:Order Comment: Name Collection Type:: Clean- Voided MidstreamPerformed By: #### ADDONUAPLUS, CUU #### [facility] [address] [place] [address] USABilirubin,UrineNegativeNormalNegativeThe [facility] Anson Physician GroupComment on above:Order Comment: Name Collection Type:: Clean- Voided MidstreamPerformed By: #### ADDONUAPLUS, CUU #### [facility] [address] [place] [address] USAColor (U)YellowNormalYellowThe [facility] Physician Group Comment on above:Order Comment: Name Collection Type:: Clean-Voided Midstream Performed By: #### ADDONUAPLUS, CUU #### [place] [address] USAGlucose Ql (U)NormalNormalNormalThe [facility] Anson Physician GroupComment on above:Order Comment: Name Collection Type:: Clean-Voided MidstreamPerformed By: #### ADDONUAPLUS, CUU #### [place] [address] USAHyaline Casts,Dkwwf2-0Dreafx7-5Sto [facility] Physician GroupComment on above:Order Comment: Name Collection Type:: Clean-Voided MidstreamResult Comment: PERFORMED BY: [place] [address] PATHOLOGIST LENS MOUNTER MOISES LU M.D.Performed By: #### ADDONUAPLUS, CUU #### [place] [address] USAKetones Ql (U)NegativeNormalNegativeBroward Health North Physician GroupComment on above:Order Comment: Name Collection Type:: Clean- Voided MidstreamPerformed By: #### ADDONUAPLUS, CUU #### [place] [address] USALeukocyte esterase Test strip Ql (U)1+HighNegativeThe [facility] Anson Physician GroupComment on above:Order Comment: Name Collection Type:: Clean-Voided MidstreamPerformed By: #### ADDONUAPLUS, CUU #### [place] [address] USANitrite,UrineNegativeNormalNegativeThe [facility]son Physician GroupComment on above:Order Comment: Name Collection Type:: Clean-Voided MidstreamPerformed By: #### ADDONUAPLUS, CUU #### [place] [address] USAOccult Blood,UrineNegativeNormalNegativeThe [facility]son Physician GroupComment on above:Order Comment: Name Collection Type:: Clean- Voided MidstreamResult Comment: PERFORMED BY: [place] [address] PATHOLOGIST LENS MOUNTER MOISES LU M.D.Performed By: #### ADDONUAPLUS, CUU #### [place] [address] USApH (U)7.5 [pH]Normal5.0-9.0The [facility] Comment on above:Order Comment: Name Collection Type:: Clean-Voided Midstream Performed By: #### ADDONUAPLUS, CUU #### [place] [address] USAProtein,UrineNegativeNormalNegativeThe [facility]son Physician GroupComment on above:Order Comment: Name Collection Type:: Clean-Voided MidstreamPerformed By: #### ADDONUAPLUS, CUU #### [place] [address] USARBC,Ytobt3-8Crsdap9-9Afc [facility] Physician GroupComment on above:Order Comment: Name Collection Type:: Clean-Voided MidstreamPerformed By: #### ADDONUAPLUS, CUU #### [place] [address] USASpecificy [place],Urine1.825Qnafrn8.001-1.030The [facility]son Physician GroupComment on above:Order Comment: Name Collection Type:: Clean- Voided MidstreamPerformed By: #### ADDONUAPLUS, CUU #### [place] [address] USASquamous Epithelial Cell,Myabg22-95Ichh3-8Ipo [facility] Physician GroupComment on above:Order Comment: Name Collection Type:: Clean- Voided MidstreamPerformed By: #### ADDONUAPLUS, CUU #### [place] [address] USAUrobilinogen,UrineNormalNormalNormalThe [facility]son Physician GroupComment on above:Order Comment: Name Collection Type:: Clean- Voided MidstreamPerformed By: #### ADDONUAPLUS, CUU #### [facility] [address] [place] [id number] USAWBC,Mpswj92-73Zgpk1-8Amj [facility] Physician GroupComment on above:Order Comment: Name Collection Type:: Clean-Voided MidstreamPerformed By: #### VIC, CUU #### [facility] [address] [place] [address] USAECG 12 lead ECGon 40-48-3533CIC 12 lead [facility]OL[facility] [place] [address] [place] [address] Electrocardiograph Report Signed Patient: Alie Eagle MR#: [id number] : 1995 Acct:[id number] Age/Sex: 27 / F ADM Date: 06/21/23 Loc: ER Room: Type: [facility] ER Attending Dr: Ordering Provider: Kamar [...] previous ECGs available Confirmed by EDGAR PEREZ [facility], BETSEY ([id number]) on 06/24/2023 10:10:38 AM Referred By: Electronically Signed By:BETSEY EHRNÁNDEZ MD [facility] Transcribed By: MUS Signed By Betsey Hernández MD, [facility] 06/24/23 1010[facility] Physician GroupKetones Auto test strip (U) [Mass/Vol]Ordered By: PROVIDER TEMP on 96-08-0161Sxcsvvh (U) [Mass/Vol]Negative NegativeOhiohealth Van Wert HospitalLaboratory - UrinalysisOrdered By: PROVIDER TEMP on 05-65-4225Mplvvav casts LM Ql (Urine sed)0-8 [LPF]0-8Ohiohealth Van Wert HospitalNitrite Test strip Ql (U)Ordered By: PROVIDER TEMP on 47-78-4927Bemjlbt Ql (U)NegativeNegCleveland Clinic Akron GeneralProtein Auto test strip (U) [Mass/Vol]Ordered By: PROVIDER TEMP on 35-82-1712Hxodbjo (U) [Mass/Vol]NegativeNegativeCleveland Clinic Union Hospitalpecific gravity Auto test strip (U) [Rel density]Ordered By: PROVIDER TEMP on 67-41-9602Sjxxgkkg gravity (U) [Rel density]1.0201.001-1.030Ohio[facility] Hospital Squamous epithelial cells detection in urine sediment by light microscopyOrdered By: PROVIDER TEMP on 29-79-1947Bpgdjyaujr cells.squamous LM Ql (Urine sed)10-19 [HPF]0-2FZanesville City HospitalUrine Cultureon 88-66-4056Mjgpqihn identified Cx Nom (U)50,000 colonies/ml mixed bacterial skin contaminants 2 Days PERFORMED BY: [place] [address] PATHOLOGIST LENS MOUNTER MOISES LU M.D.NormalThe [facility] Anson Physician GroupComment on above:Performed By: #### ADDONUAPLUS, CUU #### [place] [address] USAUrine bacteria detection by automated methodOrdered By: PROVIDER TEMP on 46-23-8360Goxpfesn Auto Ql (U)None seenNone SeenOhiohealth Van Wert HospitalUrine clarity by refractometry automatedOrdered By: PROVIDER TEMP on 68-40-6628Kzidtho Refractometry automated (U)CloudyClear [facility]health Van Wert HospitalUrine glucose measurement by automated test strip (mass/volume)Ordered By: PROVIDER TEMP on 02-08-9010Dzuoayj Auto test strip (U) [Mass/Vol]Normal mg/dLNormalOhiohealth Van Wert HospitalUrine hemoglobin detection by automated test stripOrdered By: PROVIDER TEMP on 38-32-5617Jlfggdzrcx Auto test strip Ql (U)NegativeNegCleveland Clinic Akron GeneralUrine leukocyte esterase detection by automated test stripOrdered By: PROVIDER TEMP on 26-58-2205Btkielhjp esterase Auto test strip Ql (U)1+ NegativeOhiohealth Van Wert HospitalUrobilinogen Auto test strip (U) [Mass/Vol]Ordered By: PROVIDER TEMP on 37-35-1828Udnjjjatfqlq (U) [Mass/Vol] Normal mg/dLNormalOhiohealth Van Wert HospitalpH Auto test strip (U)Ordered By: PROVIDER TEMP on 81-67-4100wU (U)7.5 [pH]5.0-9.0Ohiohealth Van Wert HospitalXR shoulder LT min 2V*on 15-89-8244JD shoulder LT min 2V*[facility] [place] [address] [place] [address] XRay Report Signed Patient: Alie Eagle MR#: [id number] : 1995 Acct:[id number] Age/Sex: 27 / F ADM Date: 06/19/23 Loc: XD Room: Type: [facility] Attending Dr: DAJUAN Dinh APRNC Copies to: Sushila Chairez APRN, NP-C Ordering Provider: Sushila Chairez APRN, NP-C Date of Service: 06/19/23 XR/XR shoulder LT min 2V*: M25.512 ([id number]) XR/XR cervical spine 5V*: M54.2 5 views [...] Santhosh Argueta M.D.06/19/2023 2:41 PM Dictation Location: [place] [address] Transcribed By: [facility] 06/19/23 1441 Dictated By: Santhosh Argueta DO 06/19/23 1428 Signed By: 06/19/23 1441B[facility] North Physician GroupInfluenza virus A and B and SARS-CoV-2 (COVID-19) RNA panel - Respiratory system specon 92-92-6749Fdseqajgv virus A and B RNA and SARS-CoV-2 (COVID-19) N gene panel GABRIELE+probe (Resp) NegativeOhiohealth Van Wert HospitalLaboratory - Microbiology and Antimicrobial susceptibilityon 89-58-7730FPNG-CoV-2 (COVID-19) RNA GABRIELE+probe Ql (Unsp spec)NegativeOhiohealth Van Wert HospitalNo Panel Informationon 88-99-4035CTY Influenza B (GABRIELE)NegativeOhiohealth Van Wert HospitalNo Panel InformationOrdered By: Serena Do on 59-56-8245Nqyiu Strep (POC)Ohiohealth Van Wert HospitalFerritinon 85-07-4194Jkpgoeok [Mass/Vol]22 ng/mLNormal 13-150P[facility] Medical CenterComment on above:Order Comment: patient not have eaten but drank about 1/2 of mountain dew. Still wants blood drawn today.Result Comment: [address] [id number] Iron Binding Capon 08-30-2022% Fe Wbokohvqld62 %Tgawqq48-96 [facility] CenterComment on above:Order Comment: patient not have eaten but drank about 1/2 of mountain dew. Still wants blood drawn today.Iron [Mass/Vol]88 ug/eRAevilv25-514KmjduProwers Medical CenterComment on above:Order Comment: patient not have eaten but drank about 1/2 of mountain dew. Still wants blood drawn today.Total Fe Binding Orc977 ug/eZWdlrht629-991GalfhProwers Medical CenterComment on above:Order Comment: patient not have eaten but drank about 1/2 of mountain dew. Still wants blood drawn today.Unbound Fe Bind Bvh559 ug/uWJidsjz100-950WhmsyProwers Medical CenterComment on above:Order Comment: patient not have eaten but drank about 1/2 of mountain dew. Still wants blood drawn today.Result Comment: [place] [address] [place] [address] CBC With Platelet No Differentialon 26-59-6887Qcwxbmgqcpy distribution width (RBC) [Ratio]13.6 %Yktzbk33.5-14.5[facility] Medical CenterComment on above:Order Comment: patient not have eaten but drank about 1/2 of mountain dew. Still wants blood drawn today.Performed By: #### CBCND #### [facility] [address] [place] [address] Kyqcnuvkhj (Bld) [Volume fraction]42.8 %Kcccoc14.0-47.0[facility] Medical CenterComment on above:Order Comment: patient not have eaten but drank about 1/2 of mountain dew. Still wants blood drawn today.Performed By: #### CBCND #### [facility] [address] [place] [address] Otyiwpmcfa (Bld) [Mass/Vol]14.8 g/gXQnbgig48.0-16.0[facility] CenterComment on above:Order Comment: patient not have eaten but drank about 1/2 of mountain dew. Still wants blood drawn today.Performed By: #### CBCND #### [facility] [address] [place] [address] BTA (RBC) [Entitic mass]31.6 pgCritically high27.0-31.3MAdventHealth Castle RockComment on above:Order Comment: patient not have eaten but drank about 1/2 of mountain dew. Still wants blood drawn today.Performed By: #### CBCND #### [facility] [address] [place] [address] IWPB97.5 %Ulkhxn22.0-37.0[facility] Medical CenterComment on above:Order Comment: patient not have eaten but drank about 1/2 of mountain dew. Still wants blood drawn today.Performed By: #### CBCND #### [facility] [address] [place] [address] HJL (RBC) [Entitic vol]91.5 mRSzbykv44.4-94.8[facility] Medical CenterComment on above:Order Comment: patient not have eaten but drank about 1/2 of mountain dew. Still wants blood drawn today.Performed By: #### CBCND #### [facility] [address] [place] [address] Cjzzsqgbk (Bld) [#/Vol]261 10*3/gBBzilzi959-617AtvzcProwers Medical CenterComment on above:Order Comment: patient not have eaten but drank about 1/2 of mountain dew. Still wants blood drawn today.Performed By: #### CBCND #### [facility] [address] [place] [address] YGT (Bld) [#/Vol]4.68 10*6/uLNormal4.20-5.40[facility] Medical CenterComment on above:Order Comment: patient not have eaten but drank about 1/2 of mountain dew. Still wants blood drawn today.Performed By: #### CBCND #### [facility] [address] [place] [address] HKR (Bld) [#/Vol]8.7 10*3/uLNormal4.8-10.8[facility] Medical CenterComment on above:Order Comment: patient not have eaten but drank about 1/2 of mountain dew. Still wants blood drawn today.Performed By: #### CBCND #### [facility] [address] [place] [address] Vpiharjlcyrvs Metabolic Panelon 16-36-5639Ltlleck [Mass/Vol]4.3 g/dL Normal3.5-4.6MAdventHealth Castle RockComment on above:Order Comment: patient not have eaten but drank about 1/2 of mountain dew. Still wants blood drawn today.Performed By: #### CMP #### [facility] [address] [place] [address] OHB [Catalytic activity/Vol]92 U/FGsjfcr10-117IgkatProwers Medical CenterComment on above:Order Comment: patient not have eaten but drank about 1/2 of mountain dew. Still wants blood drawn today.Performed By: #### CMP #### [facility] [address] [place] [address] AWG [Catalytic activity/Vol]52 U/LCritically high0-33[facility] Medical CenterComment on above:Order Comment: patient not have eaten but drank about 1/2 of mountain dew. Still wants blood drawn today.Performed By: #### CMP #### [facility] [address] [place] [address] Gafca gap [Moles/Vol]10 mmol/LNormal9-15[facility] Medical CenterComment on above:Order Comment: patient not have eaten but drank about 1/2 of mountain dew. Still wants blood drawn today.Performed By: #### CMP #### [facility] [address] [place] [address] SWO [Catalytic activity/Vol]27 U/LNormal0-35[facility] Medical CenterComment on above:Order Comment: patient not have eaten but drank about 1/2 of mountain dew. Still wants blood drawn today.Performed By: #### CMP #### [facility] [address] [place] [address] Yyxystrdi [Mass/Vol]mg/dLNormal0.2-0.7[facility] Comment on above:Order Comment: patient not have eaten but drank about 1/2 of mountain dew. Still wants blood drawn today.Performed By: #### CMP #### [facility] [address] [place] [address] Dfeiwgu [Mass/Vol]9.0 mg/dLNormal8.5-9.9[facility] Medical CenterComment on above:Order Comment: patient not have eaten but drank about 1/2 of mountain dew. Still wants blood drawn today.Performed By: #### CMP #### [facility] [address] [place] [address] Rydcbyxo [Moles/Vol]102 mmol/ZPzbjyy62-108GiuuiProwers Medical CenterComment on above:Order Comment: patient not have eaten but drank about 1/2 of mountain dew. Still wants blood drawn today.Performed By: #### CMP #### [facility] [address] [place] [address] DV8 [Moles/Vol]25 mmol/RCfrhcq96-99CtrhyProwers Medical Center Comment on above:Order Comment: patient not have eaten but drank about 1/2 of mountain dew. Still wants blood drawn today.Performed By: #### CMP #### [facility] [address] [place] [address] Whkpawkvud [Mass/Vol]0.57 mg/dLNormal0.50-0.90[facility] Medical CenterComment on above:Order Comment: patient not have eaten but drank about 1/2 of mountain dew. Still wants blood drawn today.Performed By: #### CMP #### [facility] [address] [place] [address] CRG>60.0Normal>60[facility] Medical CenterComment on above:Order Comment: patient not have eaten but drank about 1/2 of mountain dew. Still wants blood drawn today.Result Comment: Pediatric calculator link https://www.kidney.org/professionals/kdoqi/gfr_calculatorped Effective Dec 26, 2021 [...] or following therapy that affects renal tubular secretion.Performed By: #### CMP #### [facility] [address] [place] [address] Jgonrtkz (S) [Mass/Vol]3.0 g/dLNormal2.3-3.5[facility] Medical CenterComment on above:Order Comment: patient not have eaten but drank about 1/2 of mountain dew. Still wants blood drawn today.Performed By: #### CMP #### [facility] [address] [place] [address] Oixcpcz [Mass/Vol]95 mg/eGUhlrja66-94OzmqfAdventHealth Castle Rock Comment on above:Order Comment: patient not have eaten but drank about 1/2 of mountain dew. Still wants blood drawn today.Performed By: #### CMP #### [facility] [address] [place] [address] Uzdlqukmi [Moles/Vol]3.9 mmol/LNormal3.4-4.9[facility] Medical CenterComment on above:Order Comment: patient not have eaten but drank about 1/2 of mountain dew. Still wants blood drawn today.Performed By: #### CMP #### [facility] [address] [place] [address] Sfznopc [Mass/Vol]7.3 g/dLNormal6.3-8.0[facility] Comment on above:Order Comment: patient not have eaten but drank about 1/2 of mountain dew. Still wants blood drawn today.Performed By: #### CMP #### [facility] [address] [place] [address] Paiwjf [Moles/Vol]137 mmol/MLijxib734-618BmpebProwers Medical CenterComment on above:Order Comment: patient not have eaten but drank about 1/2 of mountain dew. Still wants blood drawn today.Performed By: #### CMP #### [facility] [address] [place] [address] Wigg nitrogen [Mass/Vol]7 mg/dLNormal6-20[facility] Medical CenterComment on above:Order Comment: patient not have eaten but drank about 1/2 of mountain dew. Still wants blood drawn today.Performed By: #### CMP #### [facility] [address] [place] [address] Liohtsr, Urineon 76-48-9388Syjugjy, UrineORDER#: [id number] ORDERED BY: JEREMY RECIO SOURCE: Urine Clean Catch COLLECTED: 08/29/22 17:19 ANTIBIOTICS AT MARIA E.: RECEIVED : 08/29/22 17:45 Culture, Urine FINAL 08/30/22 21:30 Cult,Urine: NO GROWTH Performed at [address] [id number] ([phone] Valley HospitalComment on above:Performed By: #### CXURN #### [facility] [address] [place] [address] Xkkck Panel Fastingon 13-59-3188Rxyllzpootb [Mass/Vol]180 mg/dL Normal0-199[facility] Medical CenterComment on above:Order Comment: patient not have eaten but drank about 1/2 of mountain dew. Still wants blood drawn today.Result Comment: ATP III Cholesterol classification is Desirable.Performed By: #### LIPDF #### [facility] [address] [place] [address] WKJ Cholesterol Cdndkgn03 mg/cEEvuszs32-98OzpzgProwers Medical CenterComment on above:Order Comment: patient not have eaten but drank about 1/2 of mountain dew. Still wants blood drawn today.Result Comment: ATP III HDL Cholesterol Classification is Desirable. Expected Values: Males: >55 = No Risk 35-55 = Moderate Risk <35 = High Risk Females: >65 = No Risk 45-65 = Moderate Risk <45 = High Risk NCEP Guidelines: Third Report July 2000 >59 = negative risk factor for CHD <40 = major risk factor for CHDPerformed By: #### LIPDF #### [facility] [address] [place] [address] [facility] Cholesterol (Calculated) Uusfvxg177 mg/dLNormal0-129[facility] CenterComment on above:Order Comment: patient not have eaten but drank about 1/2 of mountain dew. Still wants blood drawn today.Result Comment: ATP III LDL Classification is Near Optimal. Performed By: #### LIPDF #### [facility] [address] [facility] [address] Njlzkayscglxs Eafteen248 mg/dLNormal0-150[facility] CenterComment on above:Order Comment: patient not have eaten but drank about 1/2 of mountain dew. Still wants blood drawn today.Result Comment: ATP III Triglycerides Classification is Normal.Performed By: #### LIPDF #### [facility] [address] [place] [address] ATVZW-19, Rapidon [id number] and review of laboratory resultsAbnormalBON SECMASON GENERAL HOSPITALY DAKOQQAJZZ-KlQ-7 (COVID-19) RNA GABRIELE+probe Ql (Unsp spec)DetectedAbnormalNot DetectedBON PAULDING COUNTY HOSPITALComment on above: Rapid NAAT: Negative results should [...] authorized laboratories. Fact sheet for Healthcare Providers: https://www.fda.gov/media/953090/download Fact sheet for Patients: https://www.fda.gov/media/853652/download METHODOLOGY: Isothermal Nucleic Acid Amplification [facility] HEALTHRapid Influenza A/B Antigenson 18-93-5267Mtypraxxh A by PCRNegativeBON SECOURS MERCY HEALTHInfluenza B by PCRNegativeB[facility] HEALTHBON SECOU[facility] COMMUNITY [facility] HOSPITALY HEALTHPOCT urine pregnancyOrdered By: Logan Forde on 17-85-6940Wjgqgbkvfyaaeo and review of laboratory resultsNormalBON SECOURS MERCY HEALTHPreg Test, UrNegativeBON SECOURS MERCY HEALTHQC OK?okB[facility] HEALTHBON SEC[facility] COMMUNITY MEMORIAL HOSPITALY HEALTHUrinalysis with Reflex to Cultureon 08-23-2021 Bilirubin UrineNegativeNegativeBON [facility] MERCY HEALTHBlood, UrineNegative NegativeBON [facility]RS MERCY HEALTHClarity, UAClearClearB[facility]ALTH Color, UAYellowStraw/YellowBON SEC[facility]RS MERCY HEALTHGlucose, UrNegativeNegative mg/dLB[facility] HEALTHKetones Ql (U)NegativeNegative mg/dLBON SECOU[facility]CY [facility] HOSPITALLeukocyte esterase Test strip Ql (U)NegativeNegativeBON SECANNY COMMUNITY MEMORIAL HOSPITALRenu HEALTHNitrite, UrineNegativeNegativeBON MAGALY KABA HEALTHpH, UA8.0B[facility] HEALTHProtein, UANegativeNegative mg/dLB[facility] Specific [place], UA1.011BON MAGALY KABA HEALTHUrine Reflex to CultureNot IndicatedBON MAGALY COMMUNITY MEMORIAL HOSPITALRenu [facility] SHELBY HOSPITALUrobilinogen, Urine0.2<2.0 E.U./dLBON SECOURS COMMUNITY MEMORIAL HOSPITALY HEALTHBON O[facility] HEALTH HOSPITALANNY COMMUNITY MEMORIAL HOSPITALRenu HEALTHCovid-19 PCR (CVDTBH)on 53-19-7436NWSX-CoV-2 (COVID-19) RNA GABRIELE+probe Ql (Unsp spec)Not detectedNormalNOT DETECTEDThe [facility] CenterComment on above:Result Comment: When diagnostic testing is negative, the possibility of a false negative should be considered in the context of a patient's recent exposures and the presence of clinical signs and symptoms consistent with SARS-CoV-2.Performed By: #### CVDTBH #### [facility] [address] [place] [address] Dr. Mohamud PeraltaCHOCARDIO M/2D COMPLETEon [id number] M/2D COMPLETE Patient: ALIE EAGLE Exam Date: 07/29/2020 : 1995 Gender:F Ordering : YURY LYN [facility] Admission #: [id number] Family : Order #: [id number] CLICK HERE TO VIEW EXAM ECHOCARDIOGRAM REPORT [...] Area(A4C): 12.30 cm2 Left Atrium Systolic Volume(A2C): 98598 mm3 Left Atrium Systolic Volume(A4C): 59928 mm3 Mitral Valve MV E to A [...] by: Harjit Cotton M.D. on 07/29/2020 at 17:17[facility] HospitalCULTOCE[facility] URINEon [id number] URINEIsolate 1 Escherichia coli >100,000 cfu/ml of ORGANISM 1 Escherichia coli ANTIBIOTIC M.I.C RX STATUS Ampicillin <=2 S F Ampicillin/Sulbactam <=2 S F Piperacillin/Tazobactam <=4 S F Cefazolin <=4 S F Ceftazidime <=1 S F Ceftriaxone <=1 S F Ertapenem <=0.5 S F Imipenem <=0.25 S F Amikacin <=2 S F Gentamicin <=1 S F Tobramycin <=1 S F Ciprofloxacin <=0.25 S F Levofloxacin <=0.12 S F Nitrofurantoin <=16 S F Trimethoprim/Sulfamethoxazole <=20 S FNormalThe [facility] CenterComment on above:Performed By: #### URCX #### [facility] [address] [place] [address] Sarmad KarenCBC AUTO DIFFon [id number] #0.1 103/ulNormal0.0-0.1The [facility] CenterComment on above:Performed By: #### CBC #### [facility] [address] [place] [address] Sarmad KarenBasophils/100 WBC (Bld)0.7 %Normal0.2-2.0The [facility] Comment on above:Performed By: #### CBC #### [facility] [address] [place] [address] Sarmad KarenEO #0.0 103/ulNormal0.0-0.7The [facility] CenterComment on above: Performed By: #### CBC #### [facility] [address] [place] [address] Sarmad KarenEosinophils/100 WBC (Bld)0.2 %Critically low0.9-7.0The [facility] CenterComment on above:Performed By: #### CBC #### [facility] [address] [place] [address] Sarmad KarenErythrocyte distribution width (RBC) [Ratio]13.0 %Zxgqpi49.0-15.0The [facility] CenterComment on above:Performed By: #### CBC #### [facility] [address] [address] Sarmad KarenHematocrit (Bld) [Volume fraction]36.4 %Fzases68.0-48.0The [facility] CenterComment on above:Performed By: #### CBC #### [facility] [address] [place] [address] Sarmad KarenHemoglobin (Bld) [Mass/Vol]11.5 g/dLCritically low12.0-16.0The [facility] CenterComment on above:Performed By: #### CBC #### [facility] [address] [place] [address] Sarmad KarenIG #0.01 10e3/ulNormal0.00-0.03The [facility] CenterComment on above:Performed By: #### CBC #### [facility] [address] [place] [address] Sarmad KarenIG %0.1 %Normal0.0-0.5The [facility] CenterComment on above: Performed By: #### CBC #### [facility] [address] [place] [address] Sarmad KarenLYMPH #3.1 103/ulNormal1.2-3.8The [facility] CenterComment on above: Performed By: #### CBC #### [facility] [address] [place] [address] Sarmad KarenLymphocytes/100 WBC (Bld)37.6 %Tokscr08.5-60.0The [facility] Comment on above:Performed By: #### CBC #### [facility] [address] [place] [address] Sarmad KarenMANUAL DIFF REQNONormalThe [facility] CenterComment on above: Performed By: #### CBC #### [facility] [address] [place] [address] Sarmad KarenMCH (RBC) [Entitic mass]25.7 pgCritically low26.7-34.0The [facility] CenterComment on above:Performed By: #### CBC #### [facility] [address] [place] [address] Sarmad FraserMCHC (RBC) [Mass/Vol]31.6 g/mHGivurq56.9-35.2The [facility] Comment on above:Performed By: #### CBC #### [facility] [address] [place] [address] Sarmad FraserMCV (RBC) [Entitic vol]81.4 mLBlouzq27.0-99.0The [facility] Comment on above:Performed By: #### CBC #### [facility] [address] [place] [address] Sarmad FraserMONO #0.5 103/ulNormal0.3-0.8The [facility] CenterComment on above: Performed By: #### CBC #### [facility] [address] [place] [address] Sarmad KarenMonocytes/100 WBC (Bld)5.6 %Normal1.7-12.0The [facility] Comment on above:Performed By: #### CBC #### [facility] [address] [place] [address] Sarmad TaoenNEUT #4.6 103/ulNormal1.4-6.5The [facility] CenterComment on above: Performed By: #### CBC #### [facility] [address] [place] [address] Sarmad KarenNeutrophils/100 WBC (Bld)55.8 %Vuiyxm53.0-75.0The [facility] Comment on above:Performed By: #### CBC #### [facility] [address] [place] [address] Sarmad KarenPlatelet mean volume (Bld) [Entitic vol]11.7 fLNormal9.5-13.5The [facility] CenterComment on above:Performed By: #### CBC #### [facility] [address] [place] [address] Sarmad RswjqTXF004 103/qgTcmotx579-781Eyx [facility] CenterComment on above: Performed By: #### CBC #### [facility] [address] [place] [address] Sarmad KarenRBC4.47 106/ulNormal4.20-5.40[facility] Medical CenterComment on above: Performed By: #### CBC #### [facility] [address] [place] [address] Sarmad KarenWBC8.2 103/ulNormal4.0-11.0[facility] Medical CenterComment on above: Performed By: #### CBC #### [facility] [address] [place] [address] Sarmad TaoenER URINE PROFILEon 23-49-0818Jxucdgedi Ql (U)NegativeNormalNEGATIVE [facility] Medical CenterComuniversity of [facility] on above:Performed By: #### TAD ACHARYA #### [facility] [address] [place] [address] Sarmad KarenClarity (U)CLEARNormalCLEARCincinnati Children'S Hospital Medical CenterComuniversity of [facility] on above: Performed By: #### HUGO ACHARYAR #### [facility] [address] [place] [address] Sarmad KarenColor (U)LT. YELLOWNormalYELLOWThe [facility] CenterComment on above:Performed By: #### TAD ACHARYA #### [facility] [address] [place] [address] Sarmad TaoenERUAHDA micrscopic examination will be performed if indicated.Normal The [facility] CenterComuniversity of [facility] hospital on above:Performed By: #### TAD ACHARYA #### [facility] [address] [place] [address] Sarmad KarenGlucose Ql (U)NegativeNormalNEGATIVECincinnati Children'S Hospital Medical CenterComun[facility] of [facility] on above:Performed By: #### TAD ACHARYA #### [facility] [address] [place] [address] Sarmad KarenHemoglobin Ql (U)SMALLAbnormalNEGATIVECincinnati Children'S Hospital Medical CenterComment on above:Performed By: #### HUGO ACHARYAR #### [facility] [address] [place] [address] Sarmad KarenKetones Ql (U)15 mg/dlAbnormalNEGATIVEThe [facility] Eye HospitalComment on above:Performed By: #### TAD ACHARYA #### [facility] [address] [place] [address] Sarmad KarenLEUKOCYTESNegativeNormalNEGATIVECincinnati Children'S Hospital Medical CenterComment on above:Performed By: #### HUGO ACHARYAR #### [facility] [address] [place] [address] Sarmad KarenNitrite Ql (U)PositiveAbnormalNEGATIVEThe [facility] HospitalComment on above:Performed By: #### HUGO ACHARYAR #### [facility] [address] [place] [address] Sarmad KarenpH (U)6.0 [pH]Normal5-9The [facility] CenterComment on above: Performed By: #### HUGO ACHARYAR #### [facility] [address] [place] [address] Sarmad KarenSPEC GRAVITY1.460Gfkago2.005-<=1.025The [facility] CenterComment on above:Performed By: #### TAD ACHARYA #### [facility] [address] [place] [address] Sarmad KarenUA PROTEINNegativeNormalNEGATIVE/ TRACEThe [facility] CenterComment on above:Performed By: #### HUGO ACHARYAR #### [facility] [address] [place] [address] Sarmad KarenUR MICRO INDINDICATEDNormalThe [facility] CenterComment on above: Performed By: #### HUGO ACHARYAR #### [facility] [address] [place] [address] Sarmad KarenUrobilinogen Qn (U)0.2 {Melanie'U}/dLNormal0.2 - 1.0The [facility] CenterComment on above:Performed By: #### HUGO ACHARYAR #### [facility] [address] [place] [address] Sarmad KarenPREGNANCY URon 31-48-2422VMEXUZPEF, QUALNegativeNormalNEGATIVEThe [facility]ela HospitalComment on above:Performed By: #### PREGU #### [facility] [address] [place] [address] Sarmad KarenPROF 14(COMP METB)on 35-86-8477Swhmnbp [Mass/Vol]4.4 g/dLNormal 3.5-5.0[facility] Medical CenterComment on above:Performed By: #### CMP #### [facility] [address] [place] [address] Sarmad KarenAlbumin/Globulin [Mass ratio]1.3 {ratio}NormalCincinnati Children'S Hospital Medical Center Comment on above:Performed By: #### CMP #### [facility] [address] [place] [address] Sarmad KarenALP [Catalytic activity/Vol]48 U/YFlvpbx37-992JosCincinnati Children'S Hospital Medical Center Comment on above:Performed By: #### CMP #### [facility] [address] [place] [address] Sarmad KarenALT [Catalytic activity/Vol]21 U/LNormal9-52[facility] Comment on above:Performed By: #### CMP #### [facility] [address] [place] [address] Sarmad KarenAnion gap [Moles/Vol]16.1 mmol/LNormalCincinnati Children'S Hospital Medical CenterComment on above:Performed By: #### CMP #### [facility] [address] [place] [address] Sarmad KarenAST [Catalytic activity/Vol]19 U/EGxgzum85-11Qsh [facility] Comment on above:Performed By: #### CMP #### [facility] [address] [place] [address] Sarmad KarenBilirubin [Mass/Vol]0.3 mg/dLNormal0.2-1.3TThe [facility] Comment on above:Performed By: #### CMP #### [facility] [address] [place] [address] Sarmad KarenCalcium [Mass/Vol]9.1 mg/dLNormal8.4-10.2[facility] Comment on above:Performed By: #### CMP #### [facility] [address] [address] Sarmad KarenChloride [Moles/Vol]105 mmol/YLbpiao63-845Xcj [facility] Comment on above:Performed By: #### CMP #### [facility] [address] [address] Sarmad KarenCO2 [Moles/Vol]24.4 mmol/OWdpqct54.0-30.0The [facility] Comment on above:Performed By: #### CMP #### [facility] [address] [place] [address] Sarmad KarenCreatinine [Mass/Vol]0.93 mg/dLNormal0.52-1.04The [facility] Comment on above:Performed By: #### CMP #### [facility] [address] [place] [address] Sarmad KarenEGFR-AF GRENADIAN>60Normal>=60The [facility] CenterComment on above: Performed By: #### CMP #### [facility] [address] [place] [address] Sarmad KarenEGFR-NON AF GRENADIAN>60Normal>=60The [facility] CenterComment on above:Performed By: #### CMP #### [facility] [address] [place] [address] Sarmad KarenGlobulin (S) [Mass/Vol]3.4 g/dLNormalThe [facility] CenterComment on above:Performed By: #### CMP #### [facility] [address] [place] [address] Sarmad KarenGlucose [Mass/Vol]91 mg/dLQhybmi27-147Ete [facility] CenterComment on above:Performed By: #### CMP #### [facility] [address] [place] [address] Sarmad KarenPotassium [Moles/Vol]3.5 mmol/LNormal3.4-5.0The [facility] Comment on above:Performed By: #### CMP #### [facility] [address] [address] Sarmad KarenProtein [Mass/Vol]7.8 g/dLNormal6.1-8.2The [facility] CenterComment on above:Performed By: #### CMP #### [facility] [address] [place] [address] Sarmad KarenSodium [Moles/Vol]142 mmol/EMoraur650-595Hzd [facility] Comment on above:Performed By: #### CMP #### [facility] [address] [place] [address] Sarmad KarenUrea nitrogen [Mass/Vol]8.0 mg/dLNormal7.0-17.0[facility] Comment on above:Performed By: #### CMP #### [facility] [address] [place] [address] Sarmad KarenUrea nitrogen/Creatinine [Mass ratio]8.6 mg/mgNoAvita Health SystemComment on above:Performed By: #### CMP #### [facility] [address] [place] [address] Sarmad KarenURINE MICROSCOPIC ONLYon 31-87-7345TLXFAKJGWOEQXUclzdzteXAJX SEENCincinnati Children'S Hospital Medical CenterComment on above:Performed By: #### TAD ACHARYA #### [facility] [address] [place] [address] Sarmad KarenBacteria identified Cx Nom (U)INDICATEDToledo Hospital Comment on above:Performed By: #### TAD ACHARYA #### [facility] [address] [place] [address] Sarmad KarenCASTNONE SEENNormalNONE SEENCincinnati Children'S Hospital Medical CenterComment on above: Performed By: #### TAD ACHARYA #### [facility] [address] [place] [address] Sarmad KarenCrystals LM Nom (Urine sed)NONE SEENNormalNONE SEENCincinnati Children'S Hospital Medical CenterComment on above:Performed By: #### TAD ACHARYA #### [facility] [address] [place] [address] Sarmad KarenEpithelial cells LM Ql (Urine sed)RARENormalNONE SEEN /RARECincinnati Children'S Hospital Medical CenterComment on above:Performed By: #### HUGO ACHARYAR #### [facility] [address] [id number] Sarmad TaoenMUCOUSNONE SEENNormalNONE SEENCincinnati Children'S Hospital Medical CenterComment on above: Performed By: #### MARCK, ERUR #### [facility] [address] [id number] Sarmad FraserRBCNONE SEENAbnormal0-2[facility] Medical CenterComment on above: Performed By: #### HUGO ACHARYAR #### [facility] [address] [place], [place] [id number] Sarmad FraserWBC0-2AbnormalNONE SEENCincinnati Children'S Hospital Medical CenterComment on above: Performed By: #### HUGO ACHARYAR #### [facility] [address] [place], [place] [id number] Sarmad TaoenXR FOOT RT MIN 3 VIEWSon 71-63-5911MV FOOT RT MIN 3 VIEWSEXAM: XR FOOT RT MIN 3 VIEWS HISTORY: The patient is a 24-year-old female with right foot pain after falling down stairs last night. COMPARISON: None. FINDINGS: The right foot is radiographically negative with no evidence of fracture, dislocation, joint space narrowing, erosions, osteophytes, or other osseous or articular abnormalities. IMPRESSION: Negative. Electronically authenticated by: WILLIAM SHETH Date: 2020-04-07 19:46[facility] Vital Signs Date TimeVital SignValuePerforming CpdujkchcFaisorxj79-10-8377 08:20-0500Body amdkafkbepn48.81 [degF][facility] Work Phone: bon [facility]02-23-2025 08:20-0500Diastolic blood zumxueio25 mm[Hg][facility] Work Phone: bon [facility]02-23-2025 08:20-0500Heart rate75 /minKatCleveland Clinic Hill[facility] Work Phone: Bon [facility]02-23-2025 08:20-0500 Respiratory rate18 /[facility]BayR[facility] JOSELYN [facility] Work Phone: Bon [facility]02-23-2025 08:20-3626ZcA6% (BldA) [Mass fraction]98 %IsabellaHarrington Memorial HospitalN [facility] Work Phone: Bon [facility]02-23-2025 08:20-0500Systolic blood ftdpuhfe925 mm[Hg][facility] Work Phone: Bon [facility]02-21-2025 10:36-0500Body wsuvpr311.8 cmCeliHarrington Memorial HospitalN [facility] Work Phone: Bon [facility]02-21-2025 10:36-0500Body mass index (BMI) [Ratio]30.76 kg/m0NatplqiqEncompass Rehabilitation [facility] APPLICATIONS CONSULTANT [facility] Work Phone: Bon [facility]02-21-2025 10:36-0500Body .56 kgCeliHarrington Memorial HospitalN [facility] Work Phone: Bon anfix [facility] CenterCsjpon45-26-0421 15:04-2365EzK2% (BldA) [Mass fraction]98 %Tarik D'Abreau DO Work Phone: Bon [employer] Oxmzxd14-70-6733 14:58-0500Body .6 cmStephen D'Abreau DO Work Phone: Bon [employer] Adltvi10-80-6158 14:58-0500Body mass index (BMI) [Ratio]31.07 kg/l0Gzhkwzz D'Abreau DO Work Phone: Bon kSARIA01-26-2025 14:58-0500Body .7 [degF]Tarik D'Abreau DO Work Phone: Bon kSARIA01-26-2025 14:58-0500Body ezejpv92.1 kgStephen D'Abreau DO Work Phone: [facility]01-26-2025 14:58-0500Diastolic blood kggwztoj31 mm[Hg]Tarik D'Abreau DO Work Phone: [facility]01-26-2025 14:58-0500Heart puin733 /minStephen D'Abreau DO Work Phone: [facility]01-26-2025 14:58-0500 Respiratory rate18 /minStephen D'Abreau DO Work Phone: [facility]01-26-2025 14:58-0500Systolic blood tpeejbkw438 mm[Hg]Tarik D'Abreau DO Work Phone: [facility]03-28-2024 19:42-0400Body orcmlk894.1 cmPHYSICIAN [facility]03-28-2024 19:42-0400Body mlrwfpuqcmu81.7 [degF]PHYSICIAN [facility]03-28-2024 19:42-0400Body cpzufm55.1 kgPHYSICIAN [facility]03-28-2024 19:42-0400Diastolic blood qwajgbex69 mm[Hg]PHYSICIAN [facility]03-28-2024 19:42-0400 Heart rate78 /minPHYSICIAN [facility]03-28-2024 19:42-0400Respiratory rate16 /minPHYSICIAN [facility]03-28-2024 19:42-1548IhT0% (BldA) [Mass fraction]99 %PHYSICIAN [facility]03-28-2024 19:42-0400Systolic blood mm[Hg]PHYSICIAN [facility]03-06-2024 15:48-0500 Body glzeeh107.56 cmPHYSICIAN [facility] 05-30-2023 15:48-0500Body mass index (BMI) [Ratio]32.1 kg/m3HKQNMSANW [facility]03-06-2024 15:48-0500Body .4 [degF]PHYSICIAN [facility]03-06-2024 15:48-0500 Body vavkki41.82 kgPHYSICIAN [facility] 05-30-2023 15:48-0500Diastolic blood uwvdksay10 mm[Hg]PHYSICIAN [facility]03-06-2024 15:48-0500Heart rate74 /minPHYSICIAN [facility]03-06-2024 15:48-3993ZiE5% (BldA) [Mass fraction]99 %PHYSICIAN [facility] 05-30-2023 15:48-0500Systolic blood mkbkucop92 mm[Hg]PHYSICIAN [facility]02-11-2024 00:17-0500Body bebqtw347.56 cm PHYSICIAN [facility]02-11-2024 00:17-0500Body jzvpzssiyzw48.1 [degF]PHYSICIAN [facility] 05-06-2023 00:17-0500Body .75 kgPHYSICIAN [facility]02-11-2024 00:17-0500Diastolic blood zvravntk29 mm[Hg]PHYSICIAN [facility]02-11-2024 00:17-0500Heart rate95 /min PHYSICIAN [facility]02-11-2024 00:17-0500 Respiratory rate18 /minPHYSICIAN [facility] [facility] 05-06-2023 00:17-5319JdS5% (BldA) [Mass fraction]96 %PHYSICIAN [facility]02-11-2024 00:17-0500Systolic blood mm[Hg]PHYSICIAN [facility]11-02-2022 20:07-0400 Body qmmodtsukgs25 [degF]Rosita Alex MD Work Phone: [facility]11-02-2022 20:07-0400Diastolic blood ecdsgyfl78 mm[Hg]Rosita Alex MD Work Phone: [facility]11-02-2022 20:07-0400Heart kpvz884 /Luis Manuel Alex MD Work Phone: [facility]11-02-2022 20:07-0400 Respiratory rate18 /Luis Manuel Alex MD Work Phone: [facility]11-02-2022 20:07-1402LvQ2% (BldA) [Mass fraction]97 %Rosita Alex MD Work Phone: [facility]11-02-2022 20:07-0400Systolic blood aiuhmpaj781 mm[Hg]Rosita Alex MD Work Phone: [facility]11-02-2022 18:30-0400Body .6 Candido Alex MD Work Phone: [facility]11-02-2022 18:30-0400Body mass index (BMI) [Ratio]22.31 kg/v8XtfjsqiRosita Alex MD Work Phone: [facility]11-02-2022 18:30-0400Body yfvvtg81.97 kgRosita Alex MD Work Phone: [facility]05-31-2022 16:11-0400Diastolic blood oajinveh37 mm[Hg]Dmitri Doty MD Work Phone: [facility]05-31-2022 16:11-0400Heart rate67 /Digna Doty MD Work Phone: [facility]05-31-2022 16:11-0400 Respiratory rate16 /Digna Doty MD Work Phone: [facility]PITALCareinSync [facility] HOSPITALFADWUA77-67-8050 16:11-1444YjL0% (BldA) [Mass fraction]98 %Dmitri Doty MD Work Phone: [employer]05-31-2022 16:11-0400Systolic blood bbholpuq585 mm[Hg]Dmitri Doty MD Work Phone: [facility] YPWYFJ74-55-8952 15:28-0400Body .6 cmDmitri Doty MD Work Phone: [employer] HANTIS76-85-4455 15:28-0400Body mass index (BMI) [Ratio]20.08 kg/g0GjdblDmitri Doty MD Work Phone: [facility] [place]05-31-2022 15:28-0400Body fcdrkxqdydt41.9 [degF]Dmitri Doty MD Work Phone: [employer]05-31-2022 15:28-0400Body .07 kgDmitri Doty MD Work Phone: [employer]03-10-2022 18:25-0500Body .83 cmSrajesh Darling Other [employer] Other 03-10-2022 18:25-0500Body mass index (BMI) [Ratio] 19.77 kg/c2LximnktvxDaksah Darling Other [employer] Other 03-10-2022 18:25-0500Body xafjeypaocv08.8 [degF] Daksha Darling Other [employer] Other 03-10-2022 18:25-0500Body ydmryx88.07 kgDaksha Darling Other [employer] Other 03-10-2022 18:25-0500Diastolic blood epabsuqw40 mm[Hg] Daksha Darling Other [employer] Other 03-10-2022 18:25-0500Respiratory rate18 /minSrajesh Darling Other [employer] Other 03-10-2022 18:25-7147KiC5% (BldA) [Mass fraction]99 % Daksha Darling Other [employer] Other 03-10-2022 18:25-0500Systolic blood hxybhrfn895 mm[Hg] Daksha Darling Other [employer] Other Encounters Encounter DateEncounter TypeCare ProviderFacilityStart: 05-16-2024 End: 21-89-5727Mdwzakuydh and management of inpatientIsabella Monique APPLICATIONS CONSULTANT - CNM Work Phone: mthz Labor and DeliveryStart: 53-51-7480Ythwpriri department patient visitSub[facility] HospitalStart: 05-07-2024 End: 76-62-0757cpdbvevjsgSMCGGVCC E POOLMercy Buckatunna HospitalStart: 05-07-2024 End: 14-32-9315Lanlcqdtoi hospital visit by [facility] LABComment on above:Vagina itching; Screen for STD (sexually transmitted disease); 36 weeks gestation of ; Allergy to amoxicillinStart: 04-20-2024 End: 19-80-4558zclautxxpzVPAOVSF D'ABREAUMercy Buckatunna HospitalStart: 04-20-2024 End: 94-52-9022Juejnvnles hospital visit by Edith Garrett DO Work Phone: mthz Labor and DeliveryStart: 04-18-2024 End: 40-81-9536Gmovlrwroi and management of inpatientMercy Health St. Anne Hospitaltart: 02-10-2024 End: 75-57-6024pmazykgesyUQUIHOW S CONSTANZAAMProMedica Auburn HospitalStart: 11-21-2023 End: 30-20-5758mazsxmzamtANYIXQJFMelanie Gagnon HospitalStart: 10-24-2023 End: 38-51-8241kuwvhjrrtaLXGAOPVCVicenta Gagnon HospitalStart: 10-24-2023 End: 12-02-8595Zhbmwluovv hospital visit by [facility]ST[facility] LaboratoryComment on above:Encounter for supervision of other normal in first trimester; Amenorrhea; Positive urine testStart: 10-24-2023 End: 47-44-7835gyzqexpdkaRDXDKUUFVicenta Gagnon HospitalStart: 06-21-2023 End: 60-60-0092Socyatteu department patient visitPageovanyk Tej Nayana Facility:[facility] Hospitaltart: 06-21-2023 End: 50-57-4728Rtvimijkz department patient visitPHYSICIAN NO [facility]-Emergency Room Work Phone: Start: 06-19-2023 End: 76-55-2568uzxtdakgcpGdbyogzc Family HealthFacility:[facility] Hospitaltart: 06-19-2023 End: 84-59-9896eynniweunkIIRKYRGWB NO [facility] Work Phone: Start: 06-19-2023 End: 94-07-1607Mbfdjaj encounter procedurePHYSICIAN NO [facility] Ctr-XRay [facility] Work Phone: Start: 05-30-2023 End: 73-88-1850Zquzgrs encounter procedurePHYSICIAN NO [facility] Work Phone: Start: 05-06-2023 End: 37-47-3356Qyhjglqqt department patient visitPHYSICIAN NO FAMILY Facility:[facility] Hospitaltart: 05-06-2023 End: 56-72-6787Spltnsblq department patient visitPHYSICIAN NO [facility]-Emergency Room Work Phone: Start: 03-02-2023 End: 82-48-6767Ngdrmrsdg department patient visitROSITA IRMAYuma Regional Medical Centerrenu [facility] Generaltart: 01-25-2022 End: 16-55-8838Iqxfmvgjk department patient visitRosita Alex MD Work Phone: [facility] EDComment on above:Lab test positive for detection of COVID-19 virus (Primary Dx)Start: 08-23-2021 End: 27-27-1367Azqjqtbps department patient visitDmitri Doty MD Work Phone: [facility] EDComment on above:Lower abdominal pain (Primary Dx)Start: 06-02-2021 End: 06-24-5710fiudixihrhMpddkmiwh Breault Other [place] [employer] Other Start: 53-03-9181Sjlvkl outpatient visit 15 minutes Daksha DarlingBANNER [facility]DERBIRD [facility] Urgent Care ClydeStart: 01-17-2021 End: 45-85-9560jctmsyugeeRQIVTE ALLENFacility:Y5Wdnck: 10-12-2020 End: 82-32-1162hmozxmvajpNHLTRY ALLENFacility:P0Infqb: 56-56-4265lbajxwwuav YURY ALLENFacility:U2Dixyg: 07-29-2020 End: 00-65-3539ungtetkgjpZYGNDB ALLENFacility:D5Sqfwj: 07-09-2020 End: 53-83-7323ifsxifevdxSB VERÓNICA R SMITHFacility:S7Estso: 04-07-2020 End: 51-03-5150vbwgyxrkziRU ENEDINA MARKERFacility:H1 Procedures DateProcedureProcedure DetailPerforming ClinicianStart: 83-21-2807Guors typing serologic aboKathleen E Pool APPLICATIONS CONSULTANT - CNM Work Phone: Start: 91-15-0892Eubkigdudelpn metabolic panelKathleen E Pool APPLICATIONS CONSULTANT - CNM Work Phone: Start: 77-19-7477Ehhl tst prsmv instrmnt chem analyzers pr dateKathleen E [facility] - [facility] Work Phone: Start: 89-50-1271Jeecjzd total xcpt refractometry urineKatnoland hospital montgomery E [facility] - [facility] Work Phone: Start: 66-70-9449Dcaer dip stick/tablet rgnt auto w/o microscopyKatnoland hospital montgomery E [facility] - [facility] Work Phone: Start: 05-07-2024 End: 67-01-5939Aoeut kimmy species direct probe tqFerndale E [facility] - [facility] Work Phone: Start: 02-98-9963Xwclgczjplm observation [Identifier] in Cervix by Cyto Seb Garrett DO Work Phone: Start: 52-53-3625E-ray of cervical spinePHYSICIAN NO FAMILYStart: 18-79-7579Jwush X-ray of left shoulderPHYSICIAN NO FAMILYStart: 57-57-7669Bruqv Strep (POC)PHYSICIAN NO FAMILYStart: 06-81-2702EJRDL-19, RAPID Ade Don APPLICATIONS CONSULTANT - [facility] Work Phone: Start: 13-27-8291Ociefadzj influenzaAde Don APPLICATIONS CONSULTANT - [facility] Work Phone: Start: 08-23-2021 End: 48-13-9107Zjqwu test visual color cmprsn Carolyn Doty MD Work Phone: Start: 99-07-7648Rtnsvntrtjk observation [Identifier] in Cervix by Cyto Mara Doty MD Work Phone: Plan of Treatment DateCare ActivityDetailAuthorStart: 31-99-7288LQxE/Tdap/Td vaccine (2 - Td or Tdap)DTaP/Tdap/Td vaccine (2 - Td or Tdap)Bon [facility] HospitalStart: 50-00-9816Ttwlaajjx for malignant neoplasm of cervixPap smearBon [facility] HospitalStart: 52-42-2399Atprmeaupm MonitoringDepression MonitoringInova Women'S HospitalStart: 77-47-8906Wpyuhjzfbw MonitoringDepression MonitoringInova Women'S HospitalStart: 06-65-2218Wmljdmroq for malignant neoplasm of cervix Pap smearLEWISGALE HOSPITAL MONTGOMERYStart: 62-99-5688Beew Vaccine during Tdap Vaccine during PregnancyInova Women'S HospitalComment on above:Postponed from 03/03/2024 (Patient Refused)Start: 06-03-2024 End: 56-45-6357Dxpdoiw encounter skgzxjfyw14/11/2025 11:00 AM EDT Routine [facility] OBSTET[facility]ICS [facility]YNECOLOGY Part [address] [place] [address] Isabella Monique, APPLICATIONS CONSULTANT -CNM [address] [place] [address] Dr [address] [place] [address] 40wk OB -- [facility] OBST[facility]ICS GYNECOLOGY [facility] HospitalComment on above:40wk OB -- NSTStart: 05-27-2024 End: 95-15-4519Qwjmobo encounter dixieojay49/04/2025 10:30 AM EST Routine [facility]STET[facility]YNECOLOGY [address] [place] [address] Isabella Monique, APPLICATIONS CONSULTANT -CNTej [address] [place] [address] Dr [address] [place] [address] 39wk [facility] OBSTETRICS [facility] HospitalComment on above:39wk OBStart: 05-20-2024 End: 81-39-9511Buaqvvc encounter ufgogaoud41/25/2025 10:10 AM EST Routine [facility]YNECOLOGY [address] [place] [address] Isabella Monique APPLICATIONS CONSULTANT -CNM [address] [place] [address] Dr [address] [place] [address] 38wk [facility] OBSTETRICS & GYNECOLOGY Part [facility] HospitalComment on above:38wk OBStart: 05-13-2024 End: 80-36-8894Txsmzmo encounter smwqigmym85/18/2025 10:30 AM EST Routine [facility] OBSTET[facility]ICS [facility]YNECOLOGY Part of [address] [place] [address] Isabella Monique APRN -MICHELLE [address] [place] [address] Dr [address] [place] [address] 37wk [facility] OBSTETRICS & GYNECOLOGY Part [facility] HospitalComment on above:37wk OBStart: 05-06-2024 End: 40-10-0794Foabkai encounter altlsrroi35/11/2025 9:30 AM EST Routine [facility]STET[facility]YNECOLOGY Part of [address] [place] [address] Isabella Monique APRN - MICHELLE [address] [place] [address] Dr [address] [place] [address] 36wk OB --- GBS / us [facility] OBSTETRICS & GYNECOLOGY Part [facility] HospitalComment on above:36wk OB --- GBS / us positionStart: 05-06-2024 End: 35-39-3892Qajnehlxaitg / ancillary services jbocahwnsm26/11/2025 9:00 AM EST Ancillary Procedure [facility]OLOGY Part of [address] [place] [address] 36wk OB GBS -- us [facility] OBSTETRICS & GYNECOLOGY Part [facility] HospitalComment on above:36wk OB GBS -- us positionStart: 04-21-2024 End: 49-30-3562Kswowun encounter cxuuaoddc54/27/2025 11:20 AM EST Routine [facility]YNECOLOGY Part of [address] [place] [address] Isabella Monique APRN -MICHELLE [address] [place] [address] Dr [address] [place] [address] 34wk OB -- *NA (04.17)[facility] OB[facility]ICS [facility] GYNECOLOGY Part [facility] HospitalComment on above:34wk OB -- *NA (04.17)Start: 69-88-2875Szainxejlaw Syncytial Virus (RSV) or age 60 yrs+ (1 - Risk 1-dose series)Respiratory Syncytial Virus (RSV) or age 60 yrs+ (1 - Risk 1-dose series)[facility]Start: 03-24-2024 End: 67-94-4056Idlmhyb encounter zxypjeaur68/30/2024 10:00 AM EST Routine [facility] OBSTETRICS [facility] GYNECOLOGY Part of [address] [place] [address] Isabella Monique APRN -MICHELLE [address] [place] [address] Dr [address] [place] [address] ob / 30 week / tdapUC [facility] HospitalComment on above:ob / 30 week / tdapStart: 03-24-2024 End: 65-91-5391Deqgkuruutob / ancillary services vpzdanuwoo33/30/2024 9:30 AM EST Ancillary Procedure [facility]YNECOLOGY Part of [address] [place] [id number] ob / 30 [facility] OBSTETRICS & GYNECOLOGY [facility] Comment on above:ob / 30 weekStart: 01-15-2024 End: 82-67-0945Boyoxho encounter asuddqicd03/22/2024 3:00 PM EDT Routine [facility] OBST[facility]YNECOLOGY Part of [address] [place] [address] Isabella Monique APRN - MICHELLE [address] [place] [address] Dr [address] [place] [address] ob / 20 [facility] OBSTETRICS & GYNECOLOGY Part [facility] HospitalComment on above:ob / 20 weekStart: 01-15-2024 End: 94-38-1120Vpqetedgatgp / ancillary services xolbzjwshf27/22/2024 2:00 PM EDT Ancillary Procedure [facility]YNECOLOGY Part of [address] [place] [id number] ob / 20 [facility] OBSTETRICS GYNECOLOGY [facility] Comment on above:ob / 20 weekStart: 19-70-5542JAIBA-19 Vaccine ( season)COVID-19 Vaccine ( season)[facility] HospitalStart: 32-72-4256SWQPY-19 Vaccine ( season)COVID-19 Vaccine ()[facility]: 11-21-2023 End: 82-20-4515Fqcuesd encounter pixfurkfz41/28/2024 10:40 AM EDT Routine [facility] OBSTETRICS GYNECOLOGY [address] [place] [address] Isabella Monique APRN -CN[address] [place] [id number] [facility] OBSTETRICS [facility] HospitalComment on above:obStart: 17-66-5609Ysdkjtsld vaccinationFlu vaccine (#1)[facility]: 16-68-6379Awkrzewgrm MonitoringDepression MonitoringBON [facility] Hospitalart: 31-93-4912EhjcxemocCleveland Clinic Union Hospitaltart: 04-25-8817Vubjzlgr identified in Urine by CultureCleveland Clinic Union Hospitaltart: 38-55-0642Vbfysmmkk for Chlamydia trachomatisDominion Hospital: 05-46-9565Olxgzazzdd MonitoringDepression MonitoringBON [facility]: 03-58-8429Zskohcgrp vaccinationFlu vaccine (Season Ended)[facility]: 45-03-2591Sjifakadx vaccinationFlu vaccine (#1)[facility]: 62-93-9275BRyB/Tdap/Td vaccine (1 - Tdap) DTaP/Tdap/Td vaccine (1 - Tdap)[facility]: 2016 Hepatitis B vaccine (1 of 3 - 19+ 3-dose series)Hepatitis B vaccine (1 of 3 - 19+ 3-dose series)[facility]: 33-29-0453Kslzilrbsomu 0-49 years Vaccine (1 of 2 - PCV)Pneumococcal 0-49 years Vaccine (1 of 2 - PCV)[facility]: 13-45-7239LSO vaccine (1 - 3-dose series)HPV vaccine (1 - 3-dose series)[facility]: 74-57-3896Ygjgsqiqa vaccine (1 of 2 - 13+ 2-dose series)Varicella vaccine (1 of 2 - 13+ 2-dose series)[facility]: 09-87-7610UOT vaccine (1 - 2-dose series)HPV vaccine (1 - 2-dose series)[facility]: 75-91-5981Hfhgtlbprrcf 0-64 years Vaccine (1 - PCV)Pneumococcal 0-64 years Vaccine (1 - PCV)[facility]: 58-51-6553ZMRQL-19 Vaccine (1)COVID-19 Vaccine (1)[facility]: 51-32-3538Kqdzydfzm vaccine (1 of 2 - 2-dose childhood series)Varicella vaccine (1 of 2 - 2-dose childhood series)[facility]: 27-52-0895VHVSP-19 Vaccine (#1)COVID-19 Vaccine (#1)[facility]: 51-15-9999Xkuhagnck B vaccine (1 of 3 - 3-dose series) Hepatitis B vaccine (1 of 3 - 3-dose series)[facility] Albumin/Globulin ratioOhiohealth Van Wert HospitalAnion gap measurement [facility] HospitalBasophils [#/volume] in Blood by Automated [facility] HospitalBasophils/100 leukocytes in Blood by Automated [facility] HospitalC.trachomatis N.gonorrhoeae DNA C.trachomatis N.gonorrhoeae DNA Microbiology Routine Vagina itching Screen for STD (sexually transmitted disease) 05/07/2024 2:38 PM ESTSwipp End: 10-24-2023.trachomatis N.gonorrhoeae DNA, [employer] Phone: Comment on above:1 Occurrences starting 10/24/2023 until 10/24/2023 End: 67-29-6437Yoppdma, Strep B Screen, Vaginal/RectalBon [email or web address] Phone: Comment on above:1 Occurrences starting 05/07/2024 until 05/07/2024 End: 85-37-0455Ccbjlxn, UrinePixiflyComment on above:1 Occurrences starting 10/24/2023 until 10/24/2023Eosinophils/100 leukocytes in Blood by Automated [facility] HospitalErythrocyte distribution width [Ratio] by Automated [facility] Erythrocytes [#/volume] in [facility] CampusFetal nonstress testFetal nonstress test OB Routine Daily until discontinued starting 5Bon [email or web address] Phone: Comment on above:Daily until discontinued starting 04/21/2024Globulin [Mass/volume] in [facility] Hematocrit [Volume Fraction] of [facility] CampusHemoglobin [Mass/volume] in [facility] CampusLeukocytes [#/volume] corrected for nucleated erythrocytes in Blood by Automated [facility] HospitalLeukocytes [#/volume] in [facility] CampusLymphocytes [#/volume] in Blood by Automated [facility] HospitalLymphocytes/100 leukocytes in Blood by Automated [facility] HospitalMCH [Entitic mass] by Automated [facility] HospitalMCHC [Mass/volume] by Automated [facility] HospitalMCV [Entitic volume] by Automated [facility] Monocytes [#/volume] in Blood by Automated [facility] HospitalMonocytes/100 leukocytes in Blood by Automated [facility] HospitalNeutrophils [#/volume] in Blood by Automated [facility] HospitalNeutrophils/100 leukocytes in Blood by Automated count [facility] HospitalNucleated erythrocytes [Presence] in Blood by Automated countOhiohealth Van Wert HospitalPatient EducationSinusitis in adultsAshtabula General Hospital Ctr Work Phone: Patient referralAshtabula General Hospital Ctr Work Phone: Platelet mean volume [Entitic volume] in Blood by Automated [facility] HospitalPlatelets [#/volume] in Blood [facility] End: 36-59-1732UTSPSA Point of Care Testing Routine One Time for 1 Occurrences starting 04/20/2024 until 04/20/2024on [facility] HospitalComment on above:One Time for 1 Occurrences starting 04/20/2024 until 04/20/2024 Immunizations Immunization DateImmunizationNotesCare PsnhiskaUuwgsuyw01-58-0174gxbhsnx toxoid, reduced diphtheria toxoid, and acellular pertussis vaccine, adsorbedKathleen Pool APPLICATIONS CONSULTANT - CNM Work Phone: Bon [facility] HospitalTdlatl18-94-1578nmusknc, mumps and rubella virus vaccineKathleen Pool APPLICATIONS CONSULTANT - CNM Work Phone: Bon [facility] Payers DatePayer CategoryPayerPolicy [id number] Health [id number] Private Health [id number] .1.691454.3.5[id number] .1.529055.3.579.[id number] .1.669456.3.57[id number] .1.459899.3.5[id number] 2.16.840.1.514074.3.579.[id number] 2.16.840.1.757730.3.57[id number] 2.16.840.1.739595.3.579.[id number] 2.16840.1.160485.3.579.[id number] 2.16840.1.853507.3.579.2.[id number] 2.16840.1.248179.3.579.[id number] 2.16840.1.672124.3.579.[id number] 2.840.1.820659.3.579.[id number] 2.16840.1.850502.3.57[id number] 2.16840.1.225255.3.579.[id number] 2.16840.1.935987.3.579.2.27623-13-0802Ezcr-qwx53437709273-66-0175Ydqtlao Z6Q32634201784-13-371[id number] 2.840.1.3[id number] 2.840.1.354544.3.579.2.531 [id number] 2.840.1.699832.3.579.2.531 Social History DateTypeDetailFacilityStart: 07-22-2021 End: 07-95-4590Guxjnxy smoking status NHISSmokes tobacco dailyNort [employer] Other Start: 08-27-2023 End: 70-04-9221Umaqdlo of tobacco useCigarette SmokerLanica Phone: start: 07-22-2021 End: 69-29-4601Mnjmhcnftj smoked current (pack per day) - Wvtkpnuy9MTZ [place]raintreeStart: 07-22-2021 End: 09-62-5243Ychakoq use and exposureSmokeless tobacco non-userLA [facility] [employer] Phone: start: 08-23-2021 End: 85-88-9335Jvnkljb intakeEx-drinker (finding)[facility] [employer] Phone: start: 10-44-9464Aguxdeq SDOH Qmtwfogll1RVU [place] Work Phone: start: 26-79-2816Uxehzza SDOH Food Hcnxf5GTB [employer] Phone: start: 18-04-5634Xje Assigned At BirthNot on fileLanica Phone: start: 08-13-2021 End: 84-21-4056Jgwrwovt to SARS-CoV-2 (event)Not sureLA [facility] [employer] Phone: start: 08-29-2022 End: 37-08-1194Khi Assigned At BirthLA [facility] [place]raintreeStart: 05-06-2023 End: 30-85-3906Rsskrsx smoking status NHISSmoker (finding)[facility] Hospitaltart: 01-34-9607Kzv Assigned At [facility] Hospitaltart: 27-60-8667Oejresn smoking status NHISEx-smokerLA [facility] BraintreeWithin the last year, have you been afraid of your partner or ex-partner?NoPixiflyHow hard is it for you to pay for the very basics like food, housing, medical care, and heatingSomewhat hardCHITRA BRADYRentlordPatient Health Questionnaire 9 item (PHQ-9) total score [Reported]1 CHITRA [place](I/We) worried whether (my/our) food would run out before (I/we) got money to buy more.Sometimes trueCHITRA BraintreeThe food that (I/we) bought just didn't last, and (I/we) didn't have money to get more.Often trueCHITRA GuguchuANNY [employer] [facility]OS[facility]ITALStart: 80-84-8291RggdulltnAHF SECTruTag Technologies [facility]OSPITALStart: 47-38-6152Rapqyw identityIdentifies as female gender (finding)CHITRA BRADYRentlordStart: 20-98-1066Bajnty orientationBisexual (finding)CHITRA [place](I/We) worried whether (my/our) food would run out before (I/we) got money to buy more.Never trueSwippThe thought of harming myself has occurred to [facility] HospitalJessie kSARIA NEGATED: Highlighted [facility] Clinical Notes 06-02-2021 to 05-18-2024 Note Date & UsgdOcmyCvimgybp60-65-3495 Hospital Discharge instructions* Discharge Instructions* Carlie Trevizo RN - 05/18/2024 12:46 PM EST Follow up with your OB provider as specified. [facility] OB Department MD Dr. Katie Fernandez DO Kathy Pool, MICHELLE Manuel, MICHELLE Alaniz, SABAS [address] [facility] [address] [place], [place] [address] [place] Office: [place] Office: Physical Changes Afterbirth pains [...] flow, may have small clots. Blood clots shouldnot be larger than an egg. Days 3-10 = [place] or Brown-tinged, medium to light flow, very [...] 12 weeks following . Call your provider ifyou are soaking through more than 1 pad [...] are felt more intensely, emotions last all day,more bad days than good, and/or emotions are strong enough they make it difficult to function, carefor your , or change your feelings towards [...] Agitation or confusion, feeling afraid and not likinghow you feel, rapid or nonsense speaking pattern, feeling like someone else is controlling you, hearing or seeing things no one else dose, thoughts of hurting yourself or others, feeling like something is crawling on you, having a lot of energy, racing thoughts and not sleeping, and/or forgetting things you have done in the past. If your will not stop crying, contact another adult to help or place infant in crib/bassineton their back and walk away. Never shake your . Breast Care Take medication as prescribed by [...] notice swelling, bleeding, drainage, foul odor, redness, orwarmth in/around the area. If you have concerns about your personal well-being, if you are unable to sleep and eat, or are having thoughts of harming yourself of your baby. [facility] Narrative* Isabella Monique APRN - CNM - 05/18/2024 11:39 AM EST Obstetrical Discharge Form Gestational Age:37w4d Antepartum complications: [...] NEGATIVE Ketones, Urine NEGATIVE NEGATIVE mg/dL Specific [place], UA 1.015 1.010 - 1.020 Urine Hgb [...] Bank Sample Expiration 05/19/2024,2359 Arm Band Number [id number] ABO/Rh A POSITIVE Antibody Screen NEGATIVE complications: [...] and post depression check [facility] in [facility] History of Present illness Narrative* Isabella Monique APRN - CNM - 05/18/2024 11:36 AM EST Department of Obstetrics and Gynecology Labor and [...] Genitalia: General appearance; normal, Hair distribution; normal, Lesionsabsent Uterus: Size normal, Contour normal Breast:normal appearance, no masses or tenderness Cor: RRR no Murmurs Pulmonary: clear to auscultation anterior and posterior Extremities: no Clubbing cyanosis or ecchymosis DATA: ASSESSMENT : Principal Problem: Uterine contractions during Active Problems: heart rate non-reassuring affecting management of mother 37 weeks gestation of (normal spontaneous vaginal delivery) Plan: Discharge home Radha Gray - 05/17/2024 2:39 PM EST Spiritual Services Interventions 0204/0204-05/17/2024 Radha Eagle 28 y.o. year old female Encounter Summary Encounter Overview/Reason: Initial Encounter Service Provided For: Patient, Significant other Referral/Consult From: Other (comment) (spiritual care order) Support System: Significant other Last Encounter : 05/17/24 Complexity of Encounter: Moderate Begin Time: 1225 End Time : 1240 Total Time Calculated: 15 min Spiritual/Emotional needs Type: Spiritual Support Assessment/Intervention/Outcome Assessment: Calm, Loneliness (pt commented about some loneliness but then said not really just wheneveryone left after having baby) Intervention: Active listening, Explored/Affirmed feelings, thoughts, concerns Outcome: Encouraged, Engaged in conversation * Radha Mcgowan - 05/17/2024 1:04 PM EST Spiritual Services Interventions 0204/0204-01 05/17/2024 Radha Justin Alie Eagle 28 y.o. year old female Encounter Summary Encounter Overview/Reason: Initial Encounter Encounter Code: (P) Q9001 Assessment by floor mechanic services Service Provided For: (P) Patient, Significant other Referral/Consult From: (P) Other (comment) (spiritual care order) Support System: (P) Significant other Last Encounter : (P) 05/17/24 Complexity of Encounter: (P) Moderate Begin Time: (P) 1225 End Time : (P) 1240 Total Time Calculated: (P) 15 min Spiritual/Emotional needs Type: (P) Spiritual Support Assessment/Intervention/Outcome Assessment: (P) Calm, Loneliness (pt commented about some loneliness but then said not really just when everyone left after having baby) Intervention: (P) Active listening, Explored/Affirmed feelings, thoughts, concerns Outcome: (P) Encouraged, Engaged in conversation * Isabella Monique APPLICATIONS CONSULTANT - CNM - 05/17/2024 4:01 AM EST Department of Obstetrics and Gynecology Labor and [...] -- (!) 157 -- -- -- -- 05/16/241857 127/77 -- -- 87 16 -- -- -- 05/16/241826 107/61 -- -- 78 18 -- -- -- 05/16/241819 -- 98 F (36.7 C) Oral -- [...] 79 16 100 % -- -- 05/16/24 1504 123/69 -- -- 79 16 100 [...] Genitalia: General appearance; normal, Hair distribution; normal, Lesionsabsent Uterus: Size normal, Contour normal, Position normal Breast:normal appearance, no masses or tenderness Cor: RRR no Murmurs Pulmonary: clear to auscultation anterior and posterior Extremities: no Clubbing cyanosis or ecchymosis DATA: ASSESSMENT : Principal Problem: Uterine contractions during Active Problems: heart rate non-reassuring affecting management of mother 37 weeks gestation of (normal spontaneous vaginal delivery) Plan: Continue care Plan D/C 05/18/24 * Serena Hernandez RN - 05/16/2024 5:48 PM EST FSE placement per Fidel BROOKE with Carolynn MARTINEZ instructing. FSE placement successful, pt tolerates well. * Serena Hernandez RN - 05/16/2024 5:40 PM EST IUPC placed by David BROOKE with Carolynn MARTINEZ instructing. Placement successful. * Serena Hernandez RN - 05/16/2024 5:28 PM EST IUPC placement attempted by David RN with Fidel BROOKE instructing her. Attempted by David RNx 2 without success. * Serena Hernandez RN - 05/16/2024 2:37 PM EST 14:37- Agnes DEWITT at bedside. 14:41- timeout for epidural procedure with check writer, Agnes DEWITT, and pt's mother at bedside. Pt's mother sits in chair directly in front of patient. 14:44- start of epidural procedure per Agnes ADMINISTRATIVE ASSISTANT. 14:45- epidural in per Agnes ADMINISTRATIVE ASSISTANT. 14:46- test dose of epidural per Blane.Baimariam ADMINISTRATIVE ASSISTANT. Pt tolerates well. HR 85. * Serena Hernandez RN - 05/16/2024 2:14 PM EST Carolynn MARTINEZ at bedside. Patient requests epidural prior to AROM. CNM states patient can have epidural now and she will come back later for AROM. * Serena Hernandez RN - 05/16/2024 12:33 PM EST [employer] [facility] updated on lab results. CNM states she will be in soon to AROM. Patient updated on plan of care. * Serena Hernandez RN - 05/16/2024 11:13 AM EST Surfacer calls Carolynn MARTINEZ and reports patient arrival with complaints of contractions, SVE reported, urinalysis reported, 2 late decels noted and patient put on left side and no lates noted since then.Orders received to admit patient and add CMP to labwork and urine protein/creatinine ration and urine tox, start pitocin induction. Pt updated on plan of care and is agreeable. * Serena Hernandez RN - 05/16/2024 10:20 AM EST Patient states she has felt movement today but not as much as usual . Pt denies vaginal bleeding or leaking of fluid. Pt states she has a headache this morning, denies blurred vision, floaters, epigastric pain. Pt grimaces and stops talking during contractions. * Serena Hernandez RN - 05/16/2024 10:16 AM EST Pt to Rm 204 per wheelchair from ER waiting room. FOB and pt's mother accompany her. Pt states she has been having contractions about 10 min apart since 06:50 this a.m. Pt states it is her 2nd baby and she sees [facility] for care. Pt states she was 4cm dilated at last office appointment. Pt to bathroom to put on gown and give urine specimen. [facility] Discharge instructions* Discharge Instructions* Mayra Gifford RN - 04/20/2024 4:02 PM EST OUTPATIENT DISCHARGE Dr. Aracelis Monique [facility] Dr. Frederick Manuel [address] [facility] [id number] [place] [address] or Serafina ACTIVITY LIMITATIONS: ( )Up and about as [...] LABOR AND DELIVERY . documented in this encounterIn[facility] Hospital Discharge instructions* Instructions* Dmitri Doty MD - 08/23/2021 TYLENOL/ MOTRIN FOR PAIN. DRINK PLENTY OF FLUIDS. RETURN FOR NEW OR WORSENING SYMPTOMS. * Attachments The following attachments cannot be sent through Care Everywhere. * Abdominal Pain ([place]inese) [facility] [employer] Phone: [phone] Evaluation note* Encounter Date Diagnosis Assessment Notes Treatment Notes Treatment Clinical Notes May, Navel cellulitis (ICD-10 - L03.3 16) Use medications as directed. Culture was obtained and will be sent to lab. Cover area as instructed. May use gently cleanser to area between daily application as instructed. Will call results of culture if one was obtained as medication changes are necessary. Follow up with primary care provider ifno improvement of symptoms or if symptoms worsen. [employer] Other Evaluation note* Diagnosis Lower abdominal pain- Primary Abdominal pain, other specified site documented in this encounter [employer] Phone: evaluation note* Diagnosis Lab test positive for detection of COVID-19 virus- Primary documented in this encounter [employer] Phone: evalogiksq note* Diagnosis Onset Date Resolution Status Acute bacterial pharyngitis acute [facility] Work Phone: evaluation noteNo assessment information available [facility] Work Phone: evaluation note* Diagnosis Encounter for supervision of other normal in first trimester Amenorrhea Absence of menstruation Positive urine test documented in this encounter [employer] note* Diagnosis Abdominal cramping- Primary Abdominal pain, unspecified site documented in this encounter [employer] note* Diagnosis Vagina itching Pruritus of genital organs Screen for STD (sexually transmitted disease) Screening examination for venereal disease 36 weeks gestation of state, incidental Allergy to amoxicillin documented in this encounter [employer] note* Diagnosis Uterine contractions during - Primary heart rate non-reassuring affecting management of mother Abnormality in heart rate/rhythm, unspecified as to episode of care or not applicable 37 weeks gestation of state, incidental (normal spontaneous vaginal delivery) Normal [facility] Narrative - Reported* Type Description Date Surgical History tonsillectomy Hospitalization Historymental health [facility] Other Hospital Discharge instructions* Attachments The following attachments cannot be sent through Care Everywhere. * Coronavirus Disease (COVID-19): General Info ([place]inese) [facility] Phone: Hospital Discharge instructions Additional Instructions Follow-up with your primary care doctor [facility] develop worsening [facility]: Summary Purpose Family History No Family History Records Found Relationship Condition Age at Onset Recorded Date/T vishnu Not Specified No pertinent family history Unknown fatherFamily history of mental disorderUnknownDrug abuseUnknownNot SpecifiedDrug abuseUnknownFamily history of mental disorderUnknown Advance Directives No Advanced Directives Records Found Date ActivatedDate InactivatedComments04/20/2024 3:26 PM04/20/2024 6:30 PMDate ActivatedDate InactivatedComments04/19/2024 12:41 AM04/19/2024 9:38 AM Advance Directive Response Recorded Date/ Time Advance Directives No June 27 3:09pm Advance Directive Response Recorded Date/ Time Advance Directives No June 27 2:09pm Date ActivatedDate InactivatedComments04/20/2024 3:26 PMDate ActivatedDate InactivatedComments05/16/2024 10:26 AM05/16/2024 7:25 PMDate ActivatedDate InactivatedComments04/20/2024 3:26 PM04/20/2024 6:30 PMDate ActivatedDate InactivatedComments04/19/2024 12:41 AM04/19/2024 9:38 AM Chief Complaint and Reason for Visit Chief Complaint sore throat/sinus is sues sore throat, cough, nausea, headache m54.2Reason for VisitAcute bacterial pharyngitis Chief Complaint sore throat/sinus is sues sore throat, cough, nausea, headache m54.2 lightheadedReason for VisitAcute bacterial pharyngitis Chief Complaint sore throat/sinus is sues Additional Source Comments INFORMATION SOURCE (unrecogn ized section and content) DATE CREATED AUTHOR 01/22/2021 [facility] DATE CREATED AUTHOR AUTHORTriston WARE 09/04/2022 [facility] DATE CREATED AUTHOR AUTHOR'S ORGANIZ ATION 03/04/2023 [facility] DATE CREATED AUTHOR AUTHOR'S ORGANIZ ATION 07/04/2023 [facility] DATE CREATED AUTHOR AUTHOR'S ORGANIZ ATION 02/12/2024 [facility] DATE CREATED AUTHOR AUTHOR'S ORGANIZ ATION 05/09/2024 [facility] DATE CREATED AUTHOR AUTHOR'S ORGANIZ ATION 06/02/2024 [facility] Reason for Visit (unrecogniz ed section and content) ReasonCommentsAbdominal PainReasonCommentsIllnessPt c/o a fever, nausea, chills, and a headache that started this AMReasonCommentsAbdominal PainLower abdominal cramping and vaginal pressureVaginal DischargeReasonCommentsContractions Scheduled Active and Recently Administ ered Medications (unrecognized section and content) Medication Order// ketorolac (TORADOL) injection 30 mg (COMPLETED) Ketorolac [...] not administer for more than 5 days. * 1605 (Given - Provider: Logan Forde RN) Medication Order/ acetaminophen (TYLENOL) tablet 650 mg (COMPLETED) 650 mg, Oral, ONCE, 1 dose, On Sun01/25/22 at 1934, Maximum dose of acetaminophen is 4000 mg from all sources in 24 hours. * 1939 (Given - Provider: Ninfa Diane, EDWARDO) ketorolac (TORADOL) injection 30 mg (COMPLETED) Ketorolac [...] ONCE, 1 dose, On Sun01/25/22 at 1934 * 1938 (Given - Provider: Ninfa Diane, RN) ondansetron (ZOFRAN-ODT) disintegrating tablet 4 mg (COMPLETED) 4 mg, Oral, ONCE, 1 dose, On Sun01/25/22 at 1934 * 1939 (Given - Provider: Ninfa Diane, EDWARDO) Medication Order05/16/953342/// escitalopram (LEXAPRO) tablet 20 mg 20 mg, Oral, DAILY, First dose on Sun05/16/24 at 2045, Until Discontinued * 2050 (Not Given - Provider: Johanny Perera RN - Reason: Patient/family refused) * 0854 (Not Given - Provider: Serena Hernandez RN - Reason: Patient/family refused) * 0900 (Due) ibuprofen (ADVIL;MOTRIN) tablet 800 mg 800 mg, Oral, EVERY 8 HOURS SCHEDULED (3 times per day), First dose on Sun05/16/24 at 2200, Until Discontinued, Once tolerating PO, discontinue Ketorolac and begin ibuprofen 8 hours after the final dose of Ketotolac. Alternate ibuprofen and acetaminophen every 4 hours., * 2058 (Given - Provider: Johanny Perera RN) * 0802 (Given - Provider: Dallas Saavedra LPN) * 1635 (Given - Provider: Serena Hernandez RN) * 0044 (Given - Provider: Ciera Leo RN) * 0827 (Given - Provider: Serena Hernandez RN) * 1400 (Due) * 2200 (Due) measles, mumps & rubella vaccine (MMR) [...] mL; Midline or Central Line = 10 mL/lumen.If following IV push medication, administer flush at same rate as the IV push. Flush volume is determined by type of infusion therapy being given. For non-viscous solutions use: Peripheral IV = 5 mL Midline or Central Line = 10 mL/lumen For viscous solutions (i.e. blood components, parenteral nutrition, contrast media, or after obtaining blood sample) use: Peripheral IV = 10 mL Midline or CentralLine = 20 mL/lumen, * 2048 (Not Given - Provider: Johanny Perera, RN - Reason: IV Fluid Infusing) * 0900 (Due) * 2099 (Due) * 09 (Due) * 2099 (Due) Medication Order05/16//// lactated ringers infusion (CANCELED) IntraVENous, at 75 mL/hr, CONTINUOUS, Starting on Sun05/16/24 at 1200, After epidural bolus given, infuse LR at 75mL/hr, Labor and Delivery * 1206 (New Bag - Provider: Serena Hernandez RN) * 1316 (Rate/Dose Verify - Provider: Serena Hernandez, EDWARDO) * 1347 (Rate/Dose Verify - Provider: Serena Hernandez, EDWARDO) * 1445 (Rate/Dose Change - Provider: Serena Hernandez, EDWARDO) * 1614 (Rate/Dose Verify - Provider: Serena Hernandez, RN) * 1825 (Rate/Dose Verify - Provider: Serena Hernandez, RN) * 1954 (Canceled Entry - Provider: Serena Hernandez, EDWARDO) * 2100 (Stopped - Provider: Johanny Perera, RN) oxytocin (PITOCIN) 30 units in 500 mL infusion (CANCELED) 1-24 maryellen-units/min (1-24 mL/hr), IntraVENous, CONTINUOUS, Starting on Sun05/16/24 at 1200, Until Sun05/16/24 at 1925, Begin infusion at 1 maryellen-unit/min (1 maryellen-unit per min = 1 mL per hour) . Then increase by 2 maryellen-units/min as needed, no faster than every 30 minutes, until labor is achieved.Labor is defined as contractions every 2-3 minutes with cervical changes or [place] units (MVU) greater than 200 in a [...] time of needed increase, Labor and Delivery * 1208 (New Bag - Provider: Serena Hernandez, EDWARDO) * 1243 (Rate/Dose Change - Provider: Serena Hernandez, RN) * 1315 (Rate/Dose Change - Provider: Serena Hernandez, EDWARDO) * 1345 (Rate/Dose Change - Provider: Serena Hernandez, EDWARDO) * 1532 (Rate/Dose Verify - Provider: Serena Hernandez, RN) * 1549 (Rate/Dose Change - Provider: Serena Hernandez, EDWARDO) * 1733 (Rate/Dose Change - Provider: Serena Hernandez, EDWARDO) * 1841 (Rate/Dose Change - Provider: Serena Hernandez, EDWARDO) * 1855 (Rate/Dose Change - Provider: Serena Hernandez, EDWARDO) * 1856 (Rate/Dose Change - Provider: Serena Hernandez, EDWARDO) * 2047 (Stopped - Provider: Johanny Perera RN) Medication Order05/16/084825//[id number]/ acetaminophen (TYLENOL) tablet 1,000 mg 1,000 mg, Oral, EVERY 8 HOURS PRN, Starting on Sun05/16/24 at 1925, Until Discontinued, Pain Mild (1-3), Allowed for higher pain score per patient request, Maximum dose of acetaminophen is 4000mg from all sources in 24 hours. Alternate ibuprofen and acetaminophen every 4 hours., * 2339 (Given - Provider: Mike Akhtar RN) * 1233 (Given - Provider: Serena Hernandez, EDWARDO) benzocaine-menthol (DERMOPLAST) 20-0.5 % spray Topical, PRN, Pain, Starting on Sun05/16/24 at 1925, Apply to perineal area. Patient is capable andmay self administer at bedside., * 2104 (Given - Provider: Johanny Perera, EDWARDO) carboprost (HEMABATE) injection 250 mcg 250 mcg, IntraMUSCular, PRN, Starting on Sun05/16/24 at 1925, Until Discontinued, bleeding, May repeat every 15 minutes up to a cumulative maximum dose of 1000 mcg, at physician's request., docusate sodium (COLACE) capsule 100 mg 100 mg, Oral, 2 TIMES DAILY PRN, Starting on Sun05/16/24 at 1925, Until Discontinued, Constipation,Do not crush or break., * 0946 (Given - Provider: Serena Hernandez, EDWARDO) * 0827 (Given - Provider: Serena Hernandez RN) lactated ringers bolus 1,000 mL (CANCELED)(Linked Group 1) 1,000 mL, IntraVENous, at 1,935.5 mL/hr, Administer over 31 Minutes, PRN, Give prior to epidural placement. May be repeated if a second epidural/spinal procedure is performed., Starting on Sun05/16/24 at 1127, Labor and Delivery * 1417 (Rate/Dose Change - Provider: Serena Hernandez RN) * 1429 (New Bag - Provider: Serena Hernandez RN - Comment: by gravity) * 1445 (Stopped - Provider: Serena Hernandez, EDWARDO) lansinoh lanolin ointment Topical, PRN, Dry Skin, nipple discomfort, Starting on Sun05/16/24 at 1925, methylergonovine (METHERGINE) injection 200 mcg (CANCELED) 200 mcg, IntraMUSCular, PRN, Starting on Sun05/16/24 at 1127, Until Sun05/16/24 at 1925, Bleeding, Prevention of post- hemorrhage, if not hypertensive., Post Delivery * 1841 (Given - Provider: Serena Hernandez RN) methylergonovine (METHERGINE) injection 200 mcg 200 mcg, IntraMUSCular, PRN, Starting on Sun05/16/24 at 1925, Until Discontinued, Bleeding, PRN forpost- hemorrhage, if not hypertensive., miSOPROStol (CYTOTEC) tablet [...] capable and may self administer at bedside., * 2102 (Given - Provider: Johanny Perera RN) Order Group 1: lactated ringers bolus 500 [...] Start: May 06, 2023 End: May 06, 2023Nahomi Mercado ProviderActiveStart: May 06, 2023 End: May 06, 2023Team MemberRelationshipSpecialtyStart DateEnd Date Rosita Alex MD [address] [address] PCP - GeneralInternal Medicine07/22/21Team MemberRelationshipSpecialtyStart Date End Date Rosita Alex MD [address] [facility] [address] [place] [address] PCP - GeneralInternal Medicine07/22/21 Team Status: Active Member Role Status Dates Services Family [facility] Primary Care Provider Active Team Status: Inactive Member Role Status Dates PHYSICIAN NO FAMILY Primary Care Provider Active Start: May 30, 2023 End: May 29Phan Henry ProviderActiveStart: May 30, 2023 End: May 30, 2023 Team Status: Inactive Member Role Status Dates Services [facility] Primary Care Provider Active Start: June 19, 2023 End: June 18manjula Chairez APRN NP-Ranulfo ProviderActiveStart: June 19, 2023 End: June 19, 2023 Team Status: Inactive Member Role Status Dates Services [facility] Primary Care Provider Active Start: June 21, 2023 End: June 20Nahomi Contreras ProviderActiveStart: June 21, 2023 End: June 21, 2023Team MemberRelationshipSpecialtyStart DateEnd Date None, None PCP - General11/21/23Team MemberRelationshipSpecialtyStart DateEnd Date None, None PCP - General11/21/23Team MemberRelationshipSpecialtyStart DateEnd Date None, None PCP - General11/21/23 Ordered Prescriptions (unrec ognized section and content) PrescriptionSigDispensedRefillsStart DateEnd Date ondansetron (ZOFRAN ODT) 4 MG disintegrating tablet Take 1 tablet by mouth every 12 hours as needed for Nausea May Sub regular tablet (non-ODT) if insurance does not cover ODT. 8 tablet ibuprofen (IBU) 800 MG tablet Take 1 tablet by mouth every 8 hours as needed for Pain 20 tablet Goals (unrecognized section and content) Goals may [...] THE PRIMARY CLINICAL RECORDS. [facility] [employer] [facility]. provides no warranty or guarantee of the accuracy or completeness of information in this document.
== END 2025-02-28 11:45 | disposition home or self-care (01) ==
PROVIDERS: Emergency Provider Emergency Medicine
DX: S43.401A Unspecified sprain of right shoulder joint, initial encounter (principal); X50.1XXA Overexertion from prolonged static or awkward postures, initial encounter
CPT/HCPCS: 73030; 99283